=== PATIENT | male | born 1965 | race African-American/Black ===

== ENCOUNTER 2017-11-19 14:20 | Outpatient (CLI) | payer BC | END 2017-11-19 14:21 | disposition home or self-care (01) | LOC: BICRAD 14:20 | PROVIDERS: ATTEND Physician Assistant Medical | DX: R14.0 Abdominal distension (gaseous) (principal); R06.00 Dyspnea, unspecified | CPT/HCPCS: 71046; 74018 ==

== ENCOUNTER 2018-10-14 13:58 | Outpatient (CLI) | payer BC, OTHER ==
--- NOTE | 2018-10-14 15:17 | ULT ---
BILATERAL RENAL ULTRASOUND: History: Chronic renal insufficiency. Technique: Multiple longitudinal and transverse images of the kidneys and bladder obtained using a mu ltihertz curvilinear transducer. Real-time and color flow images obtained. FINDINGS: Both kidneys are of normal contour, axis and size. Right kidney measures 11.4 and left kidney 11.5 cm from pole to pole. No evidence of hydronephrosis seen. No evidence of renal masses seen. The urinary bladder is unremarkable. No evidence of bladder abnormality is seen on sonography. IMPRESSION: Normal renal ultrasound. POS: NICOLE
== END 2018-10-14 13:59 | disposition home or self-care (01) ==
LOC: BICULT 13:58
PROVIDERS: ATTEND Internal Medicine Nephrology
DX: I12.9 Hypertensive chronic kidney disease with stage 1 through stage 4 chronic kidney disease, or unspecified chronic kidney disease (principal); N18.3 Chronic kidney disease, stage 3 (moderate)
CPT/HCPCS: 76770

== ENCOUNTER 2020-02-25 15:47 | Observation (INO) | payer BC, OTHER ==
[2020-02-25] MEDS ORDERED: Acetaminophen 500 MG TAB ONE (16:43)
[2020-02-25] MEDS ORDERED: Dextrose 50% Abboject 50 ML SYRINGE ONE (17:13)
[2020-02-25 17:20] LABS: Hemoglobin 14.2 g/dL (14.0-18.0); Mean Corpuscular HGB CONC 30.9 g/dL (32.0-36.0); Mean Corpuscular Hemoglobin 23.9 pg (27.0-31.0); Mean Corpuscular Volume 77.3 fL (78.0-98.0); Mean Platelet Volume 7.5 fL (7.4-10.4); Platelet Count 166 thou/uL (130-400); RBC Distribution Width 19.9 % (11.5-14.5); Red Blood Cell (RBC) Count 5.93 mill/uL (4.70-6.10)
[2020-02-25 17:34] LABS: Bacteria/HPF None Seen HPF (None Seen); Bilirubin Negative (Negative); Blood, Urine Trace (Negative); Clarity Clear (Clear); Glucose, Urine (Dipstick) 200 mg/dL (Negative); Ketone, Urine Negative (Negative); Leukocyte 25 Leu/uL (Negative); Nitrite Negative (Negative); Protein, Urine (Dipstick) 100 mg/dL (Neg-Trace); RBC/HPF 0-3 HPF (0-3); Specific Gravity, Urine 1.017 (1.002-1.036); Squamous Epithelial 0-3 HPF (0-3); Urobilinogen Normal mg/dL (Less than 2)
[2020-02-25 17:39] LABS: Anisocytosis SLIGHT = 6-15 cells (100X) (0-5/hpf); Band 14 % (5-11); Burr Cells SLIGHT = 2-5 cells (100X) (0-1/hpf); Hypochromia SLIGHT = 6-15 cells (100X) (0-5/hpf); Large Platelets SLIGHT; Lymphocytes 7 % (21-51); MDiff Complete? YES; Microcytosis SLIGHT = 6-15 cells (100X) (0-5/hpf); Monocytes 10 % (0-10); Neutrophil 69 % (42-75); Nucleated RBC 2 % (0); Ovalocytes SLIGHT = 2-5 cells (100X) (0-1/hpf); Platelet Morphology Comment Appears Adequate; Target Cells SLIGHT = 2-5 cells (100X) (0-1/hpf)
[2020-02-25 17:51] LABS: ALT (SGPT) 20 U/L (8-55); AST (SGOT) 59 U/L (5-34); Albumin 3.9 g/dL (3.5-5.0); Alkaline Phosphatase 87 U/L (40-110); Anion Gap 15 mmol/L (10-20); BUN (Urea Nitrogen) 21 mg/dL (8.4-25.7); Calc. Creatinine Clearance 0 mL/min (70-130); Calcium 9.3 mg/dL (7.8-10.44); Carbon Dioxide 25 mmol/L (22-29); Chloride 98 mmol/L (98-107); Estimated GFR-MDRD 37; Globulin 4.2 g/dL (2.4-3.5); Glucose 31 mg/dL (70-105); Potassium 4.1 mmol/L (3.5-5.1); Protein, Total 8.1 g/dL (6.0-8.3); Sodium 134 mmol/L (136-145)
[2020-02-25 18:48] LABS: Amphetamine Not Detected (NotDetected); Barbiturates Screen Not Detected (NotDetected); Benzodiazepine Screen Not Detected (NotDetected); Cocaine Metabolite Screen Not Detected (NotDetected); Medtox Control Line Valid? VALID (VALID); Medtox Reader # READER 4; Methadone Not Detected (NotDetected); Methamphetamine Not Detected (NotDetected); Opiate Screen Not Detected (NotDetected); Oxycodone Screen Not Detected (NotDetected); Phencyclidine (PCP) Not Detected (NotDetected); THC/Cannabinoid Screen Not Detected (NotDetected); Tricyclic Screen Not Detected (NotDetected)
--- NOTE | 2020-02-25 19:21 | RAD ---
RADIOGRAPH CHEST 1 VIEW: Date: 02/25/20 Time: 7:00 p.m. HISTORY: 54-year-old male with fever. COMPARISON: 02/22/19 FINDINGS: Throughout the right upper, mid, and lower lung zones, there has been interval coalescence of previou sly demonstrate faint infiltrates into denser, alveolar infiltrates, especially in the mid lung zone. More subtle, faint infiltrates at left mid/lower lung zone, questionably slightly worsening. Sternotomy wires. Cardiac size upper limits of normal. No pneumothorax. No effacement of the lateral costophrenic angles. IMPRESSION: 1. Interval worsening of right sided infiltrates. 2. Possible interval worsening of mild left sided infiltrates. 3. The findings are consistent with bilateral pneumonia, either bacterial or severe viral pneumo iesha. JN [] POS: JIN
--- NOTE | 2020-02-25 19:51 | CT ---
CT Brain WO Con: 02/25/2020 6:12 PM CLINICAL HISTORY: Altered mental status with low blood sugar. IMAGING TECHNIQUE: Multiple CT images were obtained of the brain without IV contrast. COMPARISON: None. FINDINGS: BRAIN: Evidence of acute infarct: None. Evidence of chronic ischemic change:None. Evidence of intracranial hemorrhage: None. Evidence of midline shift: Third ventricle and septum pellucidum are midline. Ventricles: Normal. No hydrocephalus. SKULL: Intact. VISUALIZED PARANASAL SINUSES: Clear. MASTOID AIR CELLS: Clear. EXTRACRANIAL SOFT TISSUES: Normal. IMPRESSION: No acute intracranial abnormality.
[2020-02-25] MEDS ORDERED: Dextrose 5% in Water 1,000 ML IV PRN (21:03)
--- NOTE | 2020-02-25 21:31 | PDOC.FPRHP ---
- History of Present Illness Chief Complaint: "feeling off" History of Present Illness: 54YO AAM with a PMH notable for DMII, CKDIII, HTN & a h/o AV valve replacement who presented to the ED via EMS after being noted to be altered at home earlier today by his girlfriend. Patient reported that he has had decreased PO intake this week but has still been taking his meds as prescribed. Was actually just in the ED on 02/22 for the same reason as today but was discharged home on that date. Per the patient, he "felt off" at home today and his girlfriend that he was acting different so she called EMS. On EMS's arrival the patient's BG level was noted to be significantly low around 40 so he was given glucose products which brought it up to ~137. However, on arrival to the ED he it was back down into the 30s & the patient was altered so an AMS workup was initiated including labs & a head CT. The patient's head CT was negative and he was given 1amp of D50 & 500mL of D10W and his BG julio césar to the 100s again and he became much more alert and oriented. Of note, the patient was also febrile on presentation at 101.1F so he was given 1g of tylenol & 1L of NS & swabbed for COVID-19 which came back +. On exam the patient reported not feeling well since ~Saturday with fatigue & decreased appetite. No known COVID-19 + contacts. No reported cough, congestion, fever/chills, myalgias, or N/V/D/C. ED Course: 1 amp D50, 1L NS, 1g tylenol, 500mL D10W - Allergies/Adverse Reactions Allergies Allergy/AdvReac Type Severity Reaction Status Date / Time No Known Allergies Allergy Verified 08/18/16 02:26 - Home Medications Medication Instructions Recorded Confirmed Type Warfarin Sodium [Coumadin] 10 mg PO DAILY 11/12/13 08/18/16 History Alogliptin 25 mg PO DAILY 08/18/16 08/18/16 History Aspirin [Ecotrin Low Strength] 81 mg PO DAILY 08/18/16 08/18/16 History Colchicine 0.6 mg PO DAILY 08/18/16 08/18/16 History Doxazosin Mesylate 4 mg PO HS 08/18/16 08/18/16 History Dulaglutide [Trulicity] 0.5 ml SC Q7DAYS 08/18/16 08/18/16 History Furosemide 40 mg PO BID 08/18/16 02/25/20 History Glimepiride [Amaryl] 8 mg PO BID 08/18/16 08/18/16 History Lisinopril 10 mg PO BID 08/18/16 08/18/16 History Metoprolol Succinate 150 mg PO DAILY 08/18/16 02/25/20 History Potassium Chloride [K-Dur] 20 meq PO BID 08/18/16 08/18/16 History Allopurinol 300 mg PO DAILY 02/25/20 02/25/20 History Atorvastatin Calcium 80 mg PO DAILY 02/25/20 02/25/20 History Cholecalciferol (Vitamin D3) [D3 25 mcg PO DAILY 02/25/20 02/25/20 History Dots] Dapagliflozin Propanediol [Farxiga] 10 mg PO QAM 02/25/20 02/25/20 History Ergocalciferol (Vitamin D2) 1.25 mg PO Q7DAYS 02/25/20 02/25/20 History [Ergocal] Ezetimibe 5 mg PO DAILY 02/25/20 02/25/20 History - History PMHx: DMII, CKD III, HTN, gout, HLD, vit d def PSHx: AV valve replacement FHx: non-contributory Social: No TAD. Lives in a house with his GF in [place]. - Review of Systems General: reports: weight/appetite/sleep changes, fatigue. denies: fever/chills Eyes: denies: eye pain, vision changes ENT: reports: other (no sore throat). denies: nasal congestion Respiratory: denies: cough, congestion, shortness of breath Cardiovascular: denies: chest pain, palpitation Gastrointestinal: denies: nausea, vomiting, diarrhea, constipation, abdominal pain Genitourinary: reports: other (no hematuria). denies: dysuria Skin: denies: rashes, lesions Musculoskeletal: reports: arthritis/arthralgias. denies: pain Neurological: reports: other (no headache). denies: syncope Psychological: denies: anxiety, depression - Vital signs BP: 110/61 HR: 78 RR: 18 Tmax: 101.1F Pox: 98-100% on RA Wt: 113.4 kg - Physical Exam Constitutional: NAD, awake, alert and oriented, well developed HEENT: normocephalic and atraumatic, grossly normal vision, grossly normal hearing, MMM, oropharynx clear Neck: supple, FROM Heart: RRR, normal S1/S2, no murmurs/rubs/gallops, pulses present, no edema Lungs: CTAB, no respiratory distress, no rales/rhonchi, no wheezing, no retractions, other (decreased breath sounds throughout) Abdomen: soft, non-tender, bowel sounds present Musculoskeletal: normal structure, normal tone, ROM grossly normal Neurological: no focal deficit, CN II-XII intact Skin: no rash/lesions, good turgor Heme/Lymphatic: no unusual bruising or bleeding Psychiatric: normal mood and affect, good judgment and insight, intact recent and remote memory FMR H&P: Results - Labs Result Diagrams: 02/25/20 16:59 02/25/20 16:59 Lab results: WBC 10.0 thou/uL (4.8-10.8) 02/25/20 16:59 Hgb 14.2 g/dL (14.0-18.0) 02/25/20 16:59 Hct 45.9 % (42.0-52.0) 02/25/20 16:59 MCV 77.3 fL (78.0-98.0) L 02/25/20 16:59 Plt Count 166 thou/uL (130-400) 02/25/20 16:59 Band Neuts % (Manual) 14 % (5-11) H 02/25/20 16:59 Sodium 134 mmol/L (136-145) L 02/25/20 16:59 Potassium 4.1 mmol/L (3.5-5.1) 02/25/20 16:59 Chloride 98 mmol/L (98-107) 02/25/20 16:59 Carbon Dioxide 25 mmol/L (22-29) 02/25/20 16:59 BUN 21 mg/dL (8.4-25.7) 02/25/20 16:59 Creatinine 2.23 mg/dL (0.7-1.3) H 02/25/20 16:59 Glucose 31 mg/dL (70-105) L* 02/25/20 16:59 Lactic Acid 1.1 mmol/L (0.5-2.2) 02/25/20 18:52 Calcium 9.3 mg/dL (7.8-10.44) 02/25/20 16:59 Total Bilirubin 1.0 mg/dL (0.2-1.2) 02/25/20 16:59 AST 59 U/L (5-34) H 02/25/20 16:59 ALT 20 U/L (8-55) 02/25/20 16:59 Alkaline Phosphatase 87 U/L (40-110) 02/25/20 16:59 Serum Total Protein 8.1 g/dL (6.0-8.3) 02/25/20 16:59 Albumin 3.9 g/dL (3.5-5.0) 02/25/20 16:59 Urine Ketones Negative mg/dL (Negative) 02/25/20 16:40 Urine Blood Trace (Negative) A 02/25/20 16:40 Urine Nitrite Negative (Negative) 02/25/20 16:40 Ur Leukocyte Esterase 25 Keith/uL (Negative) A 02/25/20 16:40 Urine RBC 0-3 HPF (0-3) 02/25/20 16:40 Urine WBC 7-10 HPF (0-3) A 02/25/20 16:40 Ur Squamous Epith Cells 0-3 HPF (0-3) 02/25/20 16:40 Urine Bacteria None Seen HPF (None Seen) 02/25/20 16:40 - EKG Interpretation EKst degree AV block w/ rate of 79 bpm, RBBB, QTc 486ms (unchanged from EKG from 02/23/20 visit) - Radiology Interpretation Chest x-ray Status: image reviewed by me, report reviewed by me (B/L PNA) CT scan - head Status: report reviewed by me (NAF) FMR H&P: A/P - Problem List (1) Hypoglycemia associated with diabetes Current Visit: Yes Status: Acute Priority: High Code(s): E11.649 - TYPE 2 DIABETES MELLITUS WITH HYPOGLYCEMIA WITHOUT COMA (2) Pneumonia due to COVID-19 virus Current Visit: Yes Status: Acute Code(s): U07.1 - COVID-19; J12.89 - OTHER VIRAL PNEUMONIA (3) Gout Current Visit: Yes Status: Chronic Code(s): M10.9 - GOUT, UNSPECIFIED (4) HLD (hyperlipidemia) Current Visit: Yes Status: Chronic Code(s): E78.5 - HYPERLIPIDEMIA, UNSPECIFIED (5) Vitamin D deficiency Current Visit: Yes Status: Chronic Code(s): E55.9 - VITAMIN D DEFICIENCY, UNSPECIFIED (6) Osteoarthritis Current Visit: Yes Status: Chronic Code(s): M19.90 - UNSPECIFIED OSTEOARTHRITIS, UNSPECIFIED SITE (7) DM2 (diabetes mellitus, type 2) Current Visit: No Status: Chronic Qualifiers: Diabetes mellitus residential insulin use: without intermediate accountant use Diabetes mellitus complication status: with kidney complications Diabetes mellitus complication detail: with chronic kidney disease Chronic kidney disease stage : stage 3 (moderate) Qualified Code(s): E11.22 - Type 2 diabetes mellitus with diabetic chronic kidney disease; N18.3 - Chronic kidney disease, stage 3 ( moderate) (8) HTN (hypertension) Current Visit: No Status: Chronic Code(s): I10 - ESSENTIAL (PRIMARY) HYPERTENSION Qualifiers: Hypertension type: essential hypertension Qualified Code(s): I10 - Essential (primary) hypertension (9) Prosthetic replacement of heart valve Current Visit: No Status: Chronic Code(s): Z95.2 - PRESENCE OF PROSTHETIC HEART VALVE Comment: AVR - Plan 54YO AAM with a PMH notable for DMII, CKDIII, HTN & a h/o AV valve replacement who presented to the ED via EMS after being noted to be altered & hypoglycemic at home earlier today by his girlfriend and EMS. #Hypoglycemia 2/2 poor PO intake while taking antihyperglycemic medications: - s/p D50 & 500mL of D5W in the ED with last 2 accuchecks WNLs (130 & 74). Patient hungry @ time of exam so will allow CC, HH, Low Na diet & will get Q4Hr accuchecks but will increase frequency if hypoglycemia returns. - hypoglycemia protocol. #COVID-19 PNA: - Confirmed on CXR on presentation in setting of + rapid COVID screen. Maintaining adequate sats on RA. WBC WNLs. Will add routine COVID-19 labs including d dimer, LDH, CRP, ferritin, BNP, trop I, & fibrinogen. Will also add a procal & if elevated will likely add abx. - Continue close monitoring of resp status & routine isolation precautions. PRN tylenol for fever/pain. - Heparin BID for VTE PPX in setting of LAURA. #LAURA on CKDIII - eGFR on low end of baseline range 37 and Cr slightly elevated at 2.23. s/p 1L in the ED. Will continue LR @ 110mL/hr. #DMII - Checking an A1c. Will hold home meds. hypoglycemia protocol. No SSI for now. #HTN - Continue home meds. #Gout - Home meds. #HLD - home meds #Vit D def - Home meds. #h/o AV valve replacement: - Aware. Dispo: Will admit to telemetry for close observation overnight. Anticipated LOS <2 midnights pending clinical course. IVFs: LR @ 110mL/hr Abx: None VTE PPX: Lovenox GI PPX: None CODE STATUS: FULL CODE PCP: Kamilla GANDHI H&P: Upper Level - Plan Date/Time: 02/25/202128 I, [], have evaluated this patient and agree with findings/plan as outlined by agronomy internship resident. Pertinent changes/additions are listed here.
[2020-02-25] MEDS ORDERED: Lactated Ringer's 1,000 ML IV SCH (21:45)
[2020-02-25 22:13] LABS: Hemoglobin A1c 6.4 % (4.0-6.0)
[2020-02-25 22:54] VITALS: BMI 36.8
[2020-02-26] MEDS: Acetaminophen 500 MG TAB PO PRN ×3 (02:41→20:58)
[2020-02-26] MEDS: Dextrose 50% Abboject 50 ML SYRINGE SLOW IVP PRN ×2 (03:36→04:20)
[2020-02-26 05:12] LABS: ALT (SGPT) 14 U/L (8-55); AST (SGOT) 32 U/L (5-34); Albumin 3.3 g/dL (3.5-5.0); Alkaline Phosphatase 74 U/L (40-110); Anion Gap 12 mmol/L (10-20); BUN (Urea Nitrogen) 22 mg/dL (8.4-25.7); Bilirubin, Total 0.7 mg/dL (0.2-1.2); CRP (Inflammatory) 8.46 mg/dL (= or < 0.5); Calc. Creatinine Clearance 63 mL/min (70-130); Calcium 8.3 mg/dL (7.8-10.44); Carbon Dioxide 24 mmol/L (22-29); Chloride 100 mmol/L (98-107); Estimated GFR-MDRD 39; Globulin 3.2 g/dL (2.4-3.5); Glucose 127 mg/dL (70-105); Protein, Total 6.5 g/dL (6.0-8.3); Sodium 133 mmol/L (136-145)
[2020-02-26] MEDS: Aspirin 81 mg Enteric Coated Tablet PO SCH (08:01)
[2020-02-26] MEDS: Ezetimibe 10 MG TAB PO SCH (08:01)
[2020-02-26] MEDS: Allopurinol 300 MG TAB PO SCH (08:01)
--- NOTE | 2020-02-26 08:21 | PDOC.FM ---
- Subjective Subjective: Patient sitting up at bedside this morning, states he feels okay. He says he has decreased appetite and some nausea, no vomiting. Has had these symptoms for about 1 week. Encouraged patient to attempt PO intake today. - Objective MAR Reviewed: Yes Vital Signs & Weight: Vital Signs (12 hours) Temp Pulse Resp BP BP Pulse Ox 02/26/20 03:15 99.9 F H 97 18 151/89 H 95 02/26/20 02:37 100 02/25/20 23:00 98.5 F 79 18 105/69 100 Weight Weight 112.945 kg I&O: 02/25/20 02/26/20 02/27/20 06:59 06:59 06:59 Intake Total 1100 Output Total 450 Balance 650 Result Diagrams: 02/25/20 16:59 02/26/20 04:25 Phys Exam - Physical Examination Constitutional: NAD HEENT: moist MMs Neck: no JVD, supple Respiratory: no wheezing, clear to auscultation bilateral Cardiovascular: RRR, no significant murmur Gastrointestinal: soft, positive bowel sounds Musculoskeletal: no edema, pulses present Neurological: normal sensation, moves all 4 limbs Psychiatric: normal affect, A&O x 3 Skin: no rash, normal turgor Dx/Plan (1) Hypoglycemia associated with diabetes Code(s): E11.649 - TYPE 2 DIABETES MELLITUS WITH HYPOGLYCEMIA WITHOUT COMA Status: Acute (2) Pneumonia due to COVID-19 virus Code(s): U07.1 - COVID-19; J12.89 - OTHER VIRAL PNEUMONIA Status: Acute (3) HTN (hypertension) Code(s): I10 - ESSENTIAL (PRIMARY) HYPERTENSION Status: Chronic Qualifiers: Hypertension type: essential hypertension Qualified Code(s): I10 - Essential (primary) hypertension - Plan Plan: 54YO AAM with a PMH notable for DMII, CKDIII, HTN & a h/o AV valve replacement who presented to the ED via EMS after being noted to be altered & hypoglycemic at home earlier today by his girlfriend and EMS. #Hypoglycemia 2/2 poor PO intake while taking antihyperglycemic medications: - s/p D50 & 500mL of D5W in the ED. - encourage PO intake - Q4Hr accuchecks - hypoglycemia protocol - last 2 accuchecks: 35, 118 #COVID-19 PNA: - Confirmed on CXR on presentation in setting of + rapid COVID screen - Maintaining adequate sats on RA - WBC WNLs - D dimer: 0.48 > 0.39 - CRP 9.87 > 8.46 - Procal 0.33 > 0.28 - troponin 0.024, Ferritin 111 - Continue close monitoring of resp status & routine isolation precautions - PRN tylenol for fever/pain. - Heparin BID for VTE PPX in setting of LAURA. #LAURA on CKDIII - eGFR on low end of baseline range 37 and Cr slightly elevated at 2.23. s/p 1L in the ED - received and additional 1L of LR @ 110mL/hr. Now encouraging PO intake #DMII - A1C 6.4% - Will hold home meds. hypoglycemia protocol. - No SSI for now. #HTN - Continue home meds. #Gout - Home meds. #HLD - home meds #Vit D def - Home meds. #h/o AV valve replacement: - Aware. Diet: HH, Low Na VTE PPX: Lovenox GI PPX: None CODE STATUS: FULL CODE PCP: Kamilla Dispo: Stable, admitted to obs on COVID telemetry unit. Continue to monitor glucose checks today and encourage PO intake. Anticipated discharge in <48 hrs. Addendum - Attending - Attending Attestation Date/Time: 02/26/20 0920 I personally evaluated the patient and discussed the management with Dr. Tay. I agree with the History, Examination, Assessment and Plan documented above with any addition or exceptions noted below. Patient feeling improved. Maintaining normoglycemia currently and tolerating diet. S/p IVF for LAURA likely 2/2 poor PO intake. Monitor blood sugars through the day, recommend stopping Glymeperide for now. In regards to COVID, patient overall denies any symptoms other than cough. Normal sats on room air. 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
[2020-02-26] MEDS ORDERED: Furosemide 40 MG TAB PO SCH (09:00)
[2020-02-26] MEDS ORDERED: Heparin 5,000 UNITS/ML VIAL SC SCH (09:00)
[2020-02-26 12:12] LABS: INR-International Normal Ratio 1.3; PTT 35.7 sec (22.9-36.1); Prothrombin Time 16.3 sec (12.0-14.7)
[2020-02-26] MEDS ORDERED: Warfarin Sodium 10 MG TAB PO SCH (17:30)
[2020-02-26] MEDS ORDERED: Atorvastatin Calcium 40 MG TAB PO SCH (21:00)
[2020-02-27 05:39] LABS: INR-International Normal Ratio 1.4; Prothrombin Time 16.7 sec (12.0-14.7)
--- NOTE | 2020-02-27 06:23 | PDOC.FM ---
- Subjective Subjective: pt sleeping comfortably in bed, denies sob/cp/cough. - Objective Vital Signs & Weight: Vital Signs (12 hours) Temp Pulse Resp BP Pulse Ox 02/26/20 20:33 101.1 F H 95 20 132/86 95 Weight Weight 112.899 kg I&O: 02/25/20 02/26/20 02/27/20 06:59 06:59 06:59 Intake Total 1100 300 Output Total 450 Balance 650 300 Result Diagrams: 02/25/20 16:59 02/26/20 04:25 Phys Exam - Physical Examination Constitutional: NAD HEENT: moist MMs Neck: full ROM no accessory muscle use, even chest rise and fall Gastrointestinal: no distention Musculoskeletal: no edema Neurological: moves all 4 limbs Psychiatric: normal affect Skin: no rash Dx/Plan (1) Hypoglycemia associated with diabetes Code(s): E11.649 - TYPE 2 DIABETES MELLITUS WITH HYPOGLYCEMIA WITHOUT COMA Status: Acute (2) Pneumonia due to COVID-19 virus Code(s): U07.1 - COVID-19; J12.89 - OTHER VIRAL PNEUMONIA Status: Acute (3) HLD (hyperlipidemia) Code(s): E78.5 - HYPERLIPIDEMIA, UNSPECIFIED Status: Chronic (4) Osteoarthritis Code(s): M19.90 - UNSPECIFIED OSTEOARTHRITIS, UNSPECIFIED SITE Status: Chronic (5) HTN (hypertension) Code(s): I10 - ESSENTIAL (PRIMARY) HYPERTENSION Status: Chronic Qualifiers: Hypertension type: essential hypertension Qualified Code(s): I10 - Essential (primary) hypertension (6) Prosthetic replacement of heart valve Code(s): Z95.2 - PRESENCE OF PROSTHETIC HEART VALVE Status: Chronic - Plan Plan: Hypoglycemia 2/2 poor PO intake while taking antihyperglycemic medications: - adequate PO intake, resolved COVID-19 PNA: - + rapid COVID screen, cxr/lab findings c/w - Maintaining adequate sats on RA - routine isolation precautions - PRN tylenol for fever/pain. - Heparin BID for VTE PPX in setting of LAURA. LAURA on CKDIII - resolved DMII - A1C 6.4% - hold glimiperide until fu with pcp HTN - Continue home meds. Gout - Home meds. HLD - home meds Vit D def - Home meds. h/o AV valve replacement: - Aware. - INR sub therapeutic, fu with coumadin clinic outpt. VTE PPX: Lovenox CODE STATUS: FULL CODE PCP: Kamilla Dispo: tolerating PO well, no O2 requirement. stable for DC. Addendum - Attending - Attending Attestation Date/Time: 02/27/20 9143 I personally evaluated the patient and discussed the management with Dr. Whitehead. I agree with the History, Examination, Assessment and Plan documented above with any addition or exceptions noted below. Patient blood sugars stable. Stable for discharge off ELLIS medications. In regards to COVID, he has never required O2 and reports no respiratory symptoms. Counselled on return precautions. Stable for discharge.
[2020-02-27] MEDS: Ezetimibe 10 MG TAB PO SCH (07:46)
[2020-02-27] MEDS: Allopurinol 300 MG TAB PO SCH (07:46)
[2020-02-27] MEDS: Aspirin 81 mg Enteric Coated Tablet PO SCH (07:46)
[2020-02-27 09:51] VITALS: BP 126/86; TEMP 99.4
[2020-02-27] MEDS ORDERED: Warfarin Sodium 10 MG TAB PO SCH (17:00)
--- NOTE | 2020-02-29 09:00 | DIS ---
DATE OF ADMISSION: 02/25/2020 DATE OF DISCHARGE: 02/27/2020 ADMITTING ATTENDING: Danis Kate MD DISCHARGE ATTENDING: Damián Collins MD CONSULTS: None. IMAGING: Brain CT without acute abnormality, chest x-ray with bilateral interstitial findings consistent with COVID pneumonia. DISCHARGE MEDICATIONS: 1. Warfarin 10 mg p.o. daily. 2. Metoprolol 150 mg p.o. daily. 3. Potassium 20 mEq p.o. b.i.d. 4. Doxazosin 4 mg p.o. at bedtime. 5. Aspirin 81 mg daily. 6. Lasix 40 mg p.o. b.i.d. 7. Lisinopril 10 mg p.o. b.i.d. 8. Colchicine 0.6 mg p.o. daily. 9. Trulicity 0.5 mL subcu q.7 days. 10. Allopurinol 300 mg p.o. daily. 11. Vitamin D2 of 1.25 mg p.o. q.7 days. 12. Forxiga 10 mg p.o. q.a.m. 13. Ezetimibe 5 mg p.o. daily. 14. Cholecalciferol 25 mcg p.o. daily. 15. Atorvastatin 80 mg p.o. daily. 16. Zofran 4 mg p.o. q.4 hours p.r.n. DISCONTINUED MEDICATIONS: 1. Glimepiride 8 mg p.o. b.i.d. 2. Alogliptin 25 mg p.o. daily. DISCHARGE DIAGNOSES: 1. Hypoglycemia secondary to poor p.o. intake. 2. COVID-19 pneumonia. SECONDARY DIAGNOSES: 1. Acute kidney injury on chronic kidney disease 3. 2. Diabetes mellitus type 2. 3. Hypertension. 4. Gout. 5. Hyperlipidemia. 6. History of atrioventricular valve replacement. HISTORY OF PRESENT ILLNESS/HOSPITAL COURSE: This is a 54-year-old male presenting with a chief complaint of being altered by his girlfriend. She reports that he has had decreased p.o. intake for the past couple days and was just not acting correctly today. Blood glucose was decreased when EMS arrived, he was given D50, improved to 137. The patient brought to the ER for further evaluation. In the emergency room, he had a fever of 101, had a positive COVID swab. He was given another amp of D50 and 500 mL of D10W. The patient admitted to the COVID floor for COVID positive pneumonia and low blood sugar, likely related to his decreased p.o. intake and continuation of his oral diabetes medications. On the medical floor, the patient did well on room air. Had fever that was controlled with Tylenol and blood sugars quickly julio césar to adequate range. He did not require further intervention or monitoring. His diabetic meds were held. His diet improved and he is tolerating p.o. well. Stable for discharge on day three of hospitalization. DISCHARGE INSTRUCTIONS: 1. Location: Home. 2. Diet: Diabetic. 3. Activity: As tolerated. 4. Follow up with PCP in the next 3 to 7 days. Job ID: [id number] TERELL
[2020-03-03] MEDS ORDERED: Ergocalciferol 1.25 MG(50,000 UNITS) CAP PO SCH (09:00)
== END 2020-02-27 10:51 | disposition home or self-care (01) ==
LOC: ERS 15:47 → 2SW 18:32
PROVIDERS: ADMIT Family Medicine; ATTEND Family Medicine
DX: U07.1 COVID-19 (principal); J12.89 Other viral pneumonia; I12.9 Hypertensive chronic kidney disease with stage 1 through stage 4 chronic kidney disease, or unspecified chronic kidney disease; E11.22 Type 2 diabetes mellitus with diabetic chronic kidney disease; E11.649 Type 2 diabetes mellitus with hypoglycemia without coma; N18.3 Chronic kidney disease, stage 3 (moderate); N17.9 Acute kidney failure, unspecified; E78.5 Hyperlipidemia, unspecified; M10.9 Gout, unspecified; I44.0 Atrioventricular block, first degree; E55.9 Vitamin D deficiency, unspecified; M19.90 Unspecified osteoarthritis, unspecified site; Z95.2 Presence of prosthetic heart valve; Z79.01 Long term (current) use of anticoagulants; Z79.82 Long term (current) use of aspirin; Z79.84 Long term (current) use of oral hypoglycemic drugs; Z79.899 Other long term (current) drug therapy
CPT/HCPCS: 36415; 36416; 70450; 71045; 80053; 80306; 81003; 81015; 82728; 83036; 83605; 83615; 83880; 84145; 84484; 85025; 85379; 85384; 85610; 85730; 86140; 87040; 87086; 93005; 94760; 96361; 96365; 96366; 96372; 96375; 96376; G0378; J1644; U0002

== ENCOUNTER 2020-03-04 12:57 | Inpatient (IN) | payer BC, OTHER ==
[~2020-03-04 12:57] MED LIST: Succinylcholine Chloride 20 MG/ML 10 ml SYRINGE FS ONE
--- NOTE | 2020-03-04 13:41 | RAD ---
Portable chest: HISTORY: Dyspnea COMPARISON: 02/25/2020 FINDINGS:Hazy bilateral infiltrates persist. There is evidence of some improvement in the right mid l syed infiltrates when compared to prior exam. Heart and mediastinum appear stable IMPRESSION:Hazy bilateral infiltrates again noted. Evidence of improvement in the right lung infiltra gretchen from prior study.
[2020-03-04] MEDS ORDERED: Azithromycin 500 MG VIAL ONE (13:55)
[2020-03-04] MEDS ORDERED: Dexamethasone 10 MG/ML VIAL ONE (13:56)
[2020-03-04 13:58] LABS: Band 9 % (5-11); Hemoglobin 14.3 g/dL (14.0-18.0); Hypochromia SLIGHT = 6-15 cells (100X) (0-5/hpf); Large Platelets SLIGHT; Lymphocytes 4 % (21-51); MDiff Complete? YES; Mean Corpuscular HGB CONC 30.4 g/dL (32.0-36.0); Mean Corpuscular Hemoglobin 22.7 pg (27.0-31.0); Mean Corpuscular Volume 74.8 fL (78.0-98.0); Mean Platelet Volume 12.5 fL (7.4-10.4); Microcytosis SLIGHT = 6-15 cells (100X) (0-5/hpf); Monocytes 6 % (0-10); Neutrophil 80 % (42-75); Nucleated RBC 1 % (0); Ovalocytes SLIGHT = 2-5 cells (100X) (0-1/hpf); Platelet Count 478 thou/uL (130-400); Platelet Morphology Comment Appears Increased; Polychromasia MODERATE = 3-4 cells (100X) (0-2/hpf); Reactive Lymphocytes 1 % (0-10); Red Blood Cell (RBC) Count 6.29 mill/uL (4.70-6.10); Schistocytes SLIGHT = 2-5 cells (100X) (0-1/hpf); Target Cells MODERATE= 6-15 cells (100X) (0-1/hpf); Tear Drops SLIGHT = 2-5 cells (100X) (0-1/hpf); White Blood Cell (WBC) Count 21.6 thou/uL (4.8-10.8)
[2020-03-04 14:30] LABS: ALT (SGPT) 18 U/L (8-55); AST (SGOT) 29 U/L (5-34); Albumin 3.4 g/dL (3.5-5.0); Alkaline Phosphatase 89 U/L (40-110); Anion Gap 22 mmol/L (10-20); BUN (Urea Nitrogen) 68 mg/dL (8.4-25.7); Bilirubin, Total 0.5 mg/dL (0.2-1.2); Calc. Creatinine Clearance 0 mL/min (70-130); Calcium 9.8 mg/dL (7.8-10.44); Carbon Dioxide 17 mmol/L (22-29); Chloride 108 mmol/L (98-107); Estimated GFR-MDRD 22; Globulin 4.7 g/dL (2.4-3.5); Glucose 212 mg/dL (70-105); Potassium 4.1 mmol/L (3.5-5.1); Protein, Total 8.1 g/dL (6.0-8.3); Sodium 143 mmol/L (136-145)
--- NOTE | 2020-03-04 14:50 | PDOC.FPRHP ---
- History of Present Illness Chief Complaint: SOB History of Present Illness: 54 y/o with PMHx DM, presents for SOB in the setting of known COVID+ pneumonia. He was admitted on 02/26 for hypoglycemia, and found to be COVID+. He had symptoms for approximately 2 days at that point. At presentation today, he is near day 10 of illness. He feels like his breathing has gotten worse since he was discharged on 02/28, especially when he is lying down. States he had cough at the beginning of his illness, but is not bothered by cough at this time. Reports chest congestion. No chest pain, dizziness, lightheadedness, nausea, vomiting, diarrhea. +Subjective fevers. In addition, he reports exercise intolerance and will get short of breath with minimal effort. ED Course: Azithromycin 500mg Dexamethasone 10mg - Allergies/Adverse Reactions Allergies Allergy/AdvReac Type Severity Reaction Status Date / Time No Known Allergies Allergy Verified 08/18/16 02:26 - Home Medications Medication Instructions Recorded Confirmed Type Warfarin Sodium [Coumadin] 10 mg PO DAILY 11/12/13 03/04/20 History Aspirin [Ecotrin Low Strength] 81 mg PO DAILY 08/18/16 08/18/16 History Colchicine 0.6 mg PO DAILY 08/18/16 03/04/20 History Doxazosin Mesylate 4 mg PO HS 08/18/16 08/18/16 History Dulaglutide [Trulicity] 0.5 ml SC Q7DAYS 08/18/16 08/18/16 History Furosemide 40 mg PO BID 08/18/16 03/04/20 History Lisinopril 10 mg PO BID 08/18/16 03/04/20 History Metoprolol Succinate 150 mg PO DAILY 08/18/16 03/04/20 History Potassium Chloride [K-Dur] 20 meq PO BID 08/18/16 08/18/16 History Allopurinol 300 mg PO DAILY 02/25/20 03/04/20 History Atorvastatin Calcium 80 mg PO DAILY 02/25/20 03/04/20 History Cholecalciferol (Vitamin D3) [D3 25 mcg PO DAILY 02/25/20 03/04/20 History Dots] Dapagliflozin Propanediol [Farxiga] 10 mg PO QAM 02/25/20 03/04/20 History Ergocalciferol (Vitamin D2) 1.25 mg PO Q7DAYS 02/25/20 03/04/20 History [Ergocal] Ezetimibe 5 mg PO DAILY 02/25/20 03/04/20 History Ondansetron [Zofran ODT] 4 mg PO Q4HR PRN #30 tab 02/27/20 03/04/20 Rx - History PMHx:DM2, CKD3, HTN, Gout, HLD, vit D def PSHx: AV valve replacement FHx: non-contributory Social: Denies TAD - Review of Systems General: reports: fever/chills, fatigue. denies: weight/appetite/sleep changes , night sweats Eyes: denies: eye pain, vision changes ENT: denies: nasal congestion, rhinorrhea Respiratory: reports: cough, shortness of breath, exercise intolerance. denies : congestion Cardiovascular: reports: orthopnea. denies: chest pain, palpitation, edema, paroxysmal nocturnal dyspnea Gastrointestinal: denies: nausea, vomiting, diarrhea, constipation, abdominal pain, GI bleeding Genitourinary: denies: incontinence, dysuria Skin: denies: rashes, lesions Musculoskeletal: denies: pain, tenderness, stiffness Neurological: denies: numbness, syncope, seizure Psychological: denies: anxiety, depression - Vital signs BP: 123/65 HR: 84 RR: 38 Tmax: 98.7 Pox: 98% on 2L Wt: 100kg - Physical Exam Constitutional: awake, alert and oriented, well developed, other (Pt is in mild distress) HEENT: normocephalic and atraumatic, PERRLA, EOMI, grossly normal vision, grossly normal hearing, MMM Neck: no LAD, no JVD Heart: RRR, normal S1/S2, other (2/6 systolic murmur) Lungs: other (tachypnea, diffuse crackles, fair air movement) Abdomen: soft, non-tender, bowel sounds present, no masses/distention Musculoskeletal: normal tone, ROM grossly normal Neurological: CN II-XII intact, normal sensation Skin: capillary refill <2 seconds, other (diffuse diaphoresis) Heme/Lymphatic: no unusual bruising or bleeding, no purpura Psychiatric: normal mood and affect, good judgment and insight FMR H&P: Results - Labs Result Diagrams: 03/04/20 13:17 03/04/20 13:17 Lab results: WBC 21.6 thou/uL (4.8-10.8) H 03/04/20 13:17 Hgb 14.3 g/dL (14.0-18.0) 03/04/20 13:17 Hct 47.0 % (42.0-52.0) 03/04/20 13:17 MCV 74.8 fL (78.0-98.0) L 03/04/20 13:17 Plt Count 478 thou/uL (130-400) H 03/04/20 13:17 Band Neuts % (Manual) 9 % (5-11) 03/04/20 13:17 Sodium 143 mmol/L (136-145) 03/04/20 13:17 Potassium 4.1 mmol/L (3.5-5.1) 03/04/20 13:17 Chloride 108 mmol/L (98-107) H 03/04/20 13:17 Carbon Dioxide 17 mmol/L (22-29) L 03/04/20 13:17 BUN 68 mg/dL (8.4-25.7) H 03/04/20 13:17 Creatinine 3.58 mg/dL (0.7-1.3) H 03/04/20 13:17 Glucose 212 mg/dL (70-105) H 03/04/20 13:17 Lactic Acid 3.4 mmol/L (0.5-2.2) H 03/04/20 13:17 Calcium 9.8 mg/dL (7.8-10.44) 03/04/20 13:17 Total Bilirubin 0.5 mg/dL (0.2-1.2) 03/04/20 13:17 AST 29 U/L (5-34) 03/04/20 13:17 ALT 18 U/L (8-55) 03/04/20 13:17 Alkaline Phosphatase 89 U/L (40-110) 03/04/20 13:17 B-Natriuretic Peptide 66.3 pg/mL (0-100) 03/04/20 13:17 Serum Total Protein 8.1 g/dL (6.0-8.3) 03/04/20 13:17 Albumin 3.4 g/dL (3.5-5.0) L 03/04/20 13:17 - Radiology Interpretation Chest x-ray Status: image reviewed by me, report reviewed by me (Bilateral opacities) FMR H&P: A/P - Plan Sepsis 2/2 COVID-19 Pnemonia likely vs bacterial pneumonia -leukocytosis with WBC >20, tachypnea, elevated lactate -tested positive on 02/24, symptoms since approx 02/23 -supplemental O2 as needed -will check labs: ferritin, D-dimer, procalcitonin, LDH -will start cefepime for coverage of pseudomonas pneumonia given leukocytosis, procal 0.69 -Warfarin for anticoagulation -Ordering plasma, outside the window for remdesivir, does not meet criteria for IL-6 inhibitor -Continue steroids Acute kidney injury with CKD 3 -Cr near 2 upon discharge, now 3.58 -will hold nephrotoxic medications including lisinopril -will decrease lasix to once daily from BID for gentler diuresis T2DM -recent admission for hypoglycemia -will hold home medications and cover with lantus/SSI while inpatient Hypertension -continue home metoprolol -will hold lisinopril Gout -no acute flare -continue colchicine, allopurinol Hyperlipidemia -continue home atorvastatin Hx of AV valve replacement -currently on warfarin, will continue -check PT, PTT, INR Code: Full Prophylaxis: Warfarin Family: None at bedside Fluids: SL Diet: CC Disposition: DC in 3-4 days PCP: Dr. Kohli Addendum - Attending - Attending Attestation Date/Time: 03/04/20 [id number] I personally evaluated the patient and discussed the management with Dr. Gallo/ Sheila. I agree with the History, Examination, Assessment and Plan documented above with any addition or exceptions noted below. See my event note for details.
[2020-03-04] MEDS ORDERED: Ondansetron ODT 4 MG TAB PO PRN (15:23)
[2020-03-04] MEDS ORDERED: Ondansetron PF 4 MG/2 ML Vial IVP PRN (15:23)
[2020-03-04] MEDS ORDERED: Acetaminophen 325 MG TAB PO PRN (15:23)
[2020-03-04 16:24] LABS: Lactic Acid 2.7 mmol/L (0.5-2.2)
[2020-03-04 16:48] LABS: Prothrombin Time 49.4 sec (12.0-14.7)
[2020-03-04 16:57] LABS: INR-International Normal Ratio 5.5
[2020-03-04] MEDS ORDERED: Warfarin Sodium 10 MG TAB PO SCH (17:00)
[2020-03-04 17:16] LABS: Actual Bicarbonate (HCO3a) 18.5 mEq/L (22-28); Base Excess (BEa) -6.9 mEq/L (-2.0 to +3.0); CO2 Tension 36.9 mmHg (35.0-45.0); Carboxyhemoglobin (COHb) 1.1 gm% (0.0-3.0); Hemoglobin (Hb) 15.1 g/dL (14.0-18.0); Potassium - ABG Lab 4.18 mmol/L (3.70-5.30); pH, Arterial 7.32 (7.35-7.45)
[2020-03-04 17:21] LABS: ALV-art Gradient 101.615 (0-20); O2 Tension (PaO2), arterial 51.9 mmHg (80.0-100.0); Puncture Site RBRACH
--- NOTE | 2020-03-04 17:29 | PDOC.EVN ---
Event Note - Event Note Event Note: Seen and evaluated. Case discussed with Dr. Gallo/Sheila. Presented with AMS and worsening resp symptoms. Hypoxic on RA. Lungs course throughout. Known COVID positive. Labs show LAURA on CKD3B. CXR concerning for multifocal PNA from COVID with possible superimposed bacterial PNA. Meets sepsis criteria. Start cefepime. check procal. Start decadron. Consult ID to evaluate for remdesivir. Baseline ABG ordered. Continue anticoagulation with warfarin. Inpatient, medical >2 midnights. Consider tx to IMCU if worsening mentation or resp status.
[2020-03-04] MEDS: Cefepime 2 GM in Sodium Chloride 0.9% 100 ML IVPB SCH (18:03)
[2020-03-04] MEDS ORDERED: Doxazosin Mesylate 4 MG TAB PO SCH (21:00)
[2020-03-04] MEDS: Atorvastatin Calcium 40 MG TAB PO SCH (21:20)
[2020-03-04] MEDS ORDERED: Albuterol 200 PUFF (6.7GM INHALER) INH PRN (22:26)
[2020-03-04] MEDS ORDERED: Albuterol 200 PUFF (6.7GM INHALER) INH SCH (22:30)
[2020-03-04] MEDS ORDERED: Rocuronium Bromide 10 MG/ML (10ML VIAL) IVP SCH (23:15)
[2020-03-04] MEDS ORDERED: Rocuronium Bromide 10 MG/ML (10ML VIAL) IVP PRN (23:27)
[2020-03-04] MEDS ORDERED: Lactated Ringer's 1,000 ML IV SCH ×2 (23:30→23:45)
--- NOTE | 2020-03-05 00:12 | PDOC.BPN ---
- Brief Progress Note At 2144, the floor nurse called stating the patient's RR was now 28, satting 88 % on HFNC (35L 48%) and that the patient had become diaphoretic and shakey. She also noted increased retractions and work of breathing. At this time an ABG was ordered which showed a pH of 7.32, O2 66, CO2 38.6, and bicarb 19.4. Patient was evaluated by myself on the floor. The patient's HFNC was increased and patient turned on his side. About 30 min- 1 hr later the nurse called again stating that the patient continued to have elevated respirations and worsening of his symptoms. Patient also with worsening confusion and lethargy. BP was found to be 86/60 as well. The patient was then moved to the [facility] (ICU for overflow). The patient was again evaluated and was found to be satting 98% on nonrebreather. Respiratory therapist in the room to try patient on HFNC again. Patient appeared more alert and was answering questions appropriately. Patients BP remained stable with SBP in the 80s. Patient to be placed back on HFNC. CXR ordered, pending. Order placed for 1L LR bolus and to be continued on gentle fluids. Patient received lasix earlier today and has not gotten any fluids, lactate elevated as well. If patient's MAP <65 will need a central line placed. Patient now on day 9-10 of symptoms and definitely has the potential to fail HFNC and require intubation. Will monitor closely. Convalescent plasma has been ordered, pending. Called Dr. Kohli to inform him of patient getting moved to the [facility].
--- NOTE | 2020-03-05 01:00 | PRG ---
DATE OF SERVICE: 03/05/2020 Events note. The patient's respiratory status worsens, was moved to the unit, coming by to check on him. Blood pressure is in the upper 70s over 40s, pulse rate is not fast around 100. Fairly obtunded, response somewhat, fairly labored breathing. X-ray shows patchy infiltrates throughout. So, question basically is do we need to consider . He may need pressors soon. We are going to put him on fluids first and see if his blood pressure comes up, consider put him on BiPAP for better respiratory control. May need to be intubated later tonight. Job ID: [id number]
[2020-03-05 01:18] LABS: Actual Bicarbonate (HCO3a) 21.5 mEq/L (22-28); Base Excess (BEa) -5.5 mEq/L (-2.0 to +3.0); CO2 Tension 48.2 mmHg (35.0-45.0); Calcium, Ionized (arterial) 1.21 mmol/L (1.12-1.30); Carboxyhemoglobin (COHb) 0.7 gm% (0.0-3.0); Hemoglobin (Hb) 13.3 g/dL (14.0-18.0); Potassium - ABG Lab 4.15 mmol/L (3.70-5.30); pH, Arterial 7.27 (7.35-7.45)
[2020-03-05] MEDS ORDERED: Electrolyte Replacement Protoc 1 EACH EACH IVPB ONE (01:23)
[2020-03-05 01:25] LABS: O2 Tension (PaO2), arterial 51.3 mmHg (80.0-100.0)
[2020-03-05] MEDS ORDERED: Propofol BOLUS 1,000 MG/100 ML VIAL IV PRN (01:29)
[2020-03-05] MEDS ORDERED: DISCONTINUE PREVIOUS NARCOTIC PAIN MEDICATIONS AND BENZODIAZEPINES FS SCH (01:29)
[2020-03-05] MEDS ORDERED: Fentanyl BOLUS 250 ML IVPB PRN (01:29)
[2020-03-05] MEDS ORDERED: Morphine 2 MG/ML VIAL SLOW IVP PRN (01:29)
[2020-03-05] MEDS ORDERED: Ventilator Sedation Protocol 1 EACH FS SCH (01:30)
--- NOTE | 2020-03-05 01:53 | PDOC.BPN ---
- Brief Progress Note Patient continued to decompensate. CXR showing worsening diffuse infiltrates. ABG at 0115 showing pH 7.268, Co2 48, Ow 51.6 on HFNC. Patient to be intubated by ER physician. BPs have been low with MAP around 64. Central line to be placed as well.
[2020-03-05] MEDS: fentaNYL Citrate/PF 2,000 MCG in Sodium Chloride 0.9% 60 ML IV SCH ×2 (02:15→19:37)
[2020-03-05] MEDS: Propofol 1,000 MG/100 ML VIAL IV PRN ×3 (02:30→17:01)
[2020-03-05 02:40] LABS: Actual Bicarbonate (HCO3a) 22.1 mEq/L (22-28); Base Excess (BEa) -5.4 mEq/L (-2.0 to +3.0); CO2 Tension 51.2 mmHg (35.0-45.0); Carboxyhemoglobin (COHb) 0.6 gm% (0.0-3.0); Hemoglobin (Hb) 13.4 g/dL (14.0-18.0); Potassium - ABG Lab 4.49 mmol/L (3.70-5.30)
[2020-03-05 02:42] LABS: Puncture Site LRA; pH, Arterial 7.25 (7.35-7.45)
[2020-03-05] MEDS ORDERED: Succinylcholine Chloride 200 MG/10 ML VIAL IV SCH (02:45)
[2020-03-05] MEDS: Lorazepam 2 MG/ML VIAL SLOW IVP PRN (02:46)
[2020-03-05] MEDS: Norepinephrine 8 MG/0.9% NS 250 ML IVPB PRN ×3 (02:46→23:32)
[2020-03-05] MEDS: Lactated Ringer's 1,000 ML IV SCH ×3 (03:21→17:01)
[2020-03-05 04:40] LABS: ALT (SGPT) 13 U/L (8-55); AST (SGOT) 17 U/L (5-34); Albumin 2.8 g/dL (3.5-5.0); Alkaline Phosphatase 71 U/L (40-110); Anion Gap 16 mmol/L (10-20); BUN (Urea Nitrogen) 79 mg/dL (8.4-25.7); Bilirubin, Total 0.4 mg/dL (0.2-1.2); Calc. Creatinine Clearance 32 mL/min (70-130); Calcium 8.8 mg/dL (7.8-10.44); Carbon Dioxide 23 mmol/L (22-29); Chloride 107 mmol/L (98-107); Estimated GFR-MDRD 20; Globulin 3.5 g/dL (2.4-3.5); Glucose 275 mg/dL (70-105); Potassium 4.4 mmol/L (3.5-5.1); Protein, Total 6.3 g/dL (6.0-8.3); Sodium 142 mmol/L (136-145)
[2020-03-05 05:39] LABS: Anisocytosis SLIGHT = 6-15 cells (100X) (0-5/hpf); Band 7 % (5-11); Burr Cells SLIGHT = 2-5 cells (100X) (0-1/hpf); Hemoglobin 12.1 g/dL (14.0-18.0); Hypochromia SLIGHT = 6-15 cells (100X) (0-5/hpf); Large Platelets SLIGHT; Lymphocytes 5 % (21-51); MDiff Complete? YES; Mean Corpuscular HGB CONC 29.5 g/dL (32.0-36.0); Mean Corpuscular Hemoglobin 23.2 pg (27.0-31.0); Mean Corpuscular Volume 78.6 fL (78.0-98.0); Mean Platelet Volume 11.6 fL (7.4-10.4); Microcytosis SLIGHT = 6-15 cells (100X) (0-5/hpf); Monocytes 3 % (0-10); Neutrophil 84 % (42-75); Nucleated RBC 2 % (0); Ovalocytes SLIGHT = 2-5 cells (100X) (0-1/hpf); Platelet Count 404 thou/uL (130-400); Platelet Morphology Comment Appears Increased; Poikilocytosis SLIGHT = 6-15 cells (100X) (0-5/hpf); Polychromasia SLIGHT = 2-3 cells (100X) (0-2/hpf); RBC Distribution Width 20.7 % (11.5-14.5); Reactive Lymphocytes 1 % (0-10); Red Blood Cell (RBC) Count 5.23 mill/uL (4.70-6.10); Schistocytes SLIGHT = 2-5 cells (100X) (0-1/hpf); Target Cells SLIGHT = 2-5 cells (100X) (0-1/hpf); Tear Drops SLIGHT = 2-5 cells (100X) (0-1/hpf); White Blood Cell (WBC) Count 17.5 thou/uL (4.8-10.8)
--- NOTE | 2020-03-05 06:06 | PDOC.FM ---
- Subjective Subjective: Intubated and sedated. - Objective MAR Reviewed: Yes Vital Signs & Weight: Vital Signs (12 hours) Temp Pulse Resp BP BP Pulse Ox 03/05/20 04:00 16 03/05/20 02:15 70 75/52 L 03/05/20 02:00 16 97 03/05/20 00:32 96 03/04/20 23:33 98.6 F 03/04/20 23:30 100 03/04/20 20:03 98.2 F 79 26 H 110/65 96 Weight Weight 102.2 kg Most Recent Monitor Data Heart Rate from ECG 63 NIBP 96/71 NIBP BP-Mean 79 Respiration from ECG 18 SpO2 99 I&O: 03/03/20 03/04/20 03/05/20 06:59 06:59 06:59 Intake Total 1107 Output Total 245 Balance 862 Result Diagrams: 03/05/20 03:36 03/05/20 03:36 Radiology: CXR: multifocal pneumonia Phys Exam - Physical Examination Constitutional: NAD HEENT: PERRLA, moist MMs Neck: no JVD Respiratory: no wheezing, no rales, no rhonchi, clear to auscultation bilateral Cardiovascular: RRR, no significant murmur Gastrointestinal: soft, non-tender Musculoskeletal: no edema Skin: no rash Dx/Plan (1) Pneumonia due to COVID-19 virus Code(s): U07.1 - COVID-19; J12.89 - OTHER VIRAL PNEUMONIA Status: Acute (2) DM2 (diabetes mellitus, type 2) Status: Chronic Qualifiers: Diabetes mellitus physics instructor insulin use: without physics instructor use Diabetes mellitus complication status: with kidney complications Diabetes mellitus complication detail: with chronic kidney disease Chronic kidney disease stage : stage 3 (moderate) Qualified Code(s): E11.22 - Type 2 diabetes mellitus with diabetic chronic kidney disease; N18.3 - Chronic kidney disease, stage 3 ( moderate) (3) Gout Code(s): M10.9 - GOUT, UNSPECIFIED Status: Chronic (4) HLD (hyperlipidemia) Code(s): E78.5 - HYPERLIPIDEMIA, UNSPECIFIED Status: Chronic (5) HTN (hypertension) Code(s): I10 - ESSENTIAL (PRIMARY) HYPERTENSION Status: Chronic Qualifiers: Hypertension type: essential hypertension Qualified Code(s): I10 - Essential (primary) hypertension (6) Osteoarthritis Code(s): M19.90 - UNSPECIFIED OSTEOARTHRITIS, UNSPECIFIED SITE Status: Chronic - Plan Plan: Sepsis 2/2 COVID-19 Pnemonia likely vs bacterial pneumonia -tested positive on 02/24, symptoms since approx 02/23 -Cefepime for coverage of pseudomonas pneumonia given leukocytosis, procal 0.69 -Warfarin for anticoagulation -Ordering plasma, outside the window for remdesivir, does not meet criteria for IL-6 inhibitor -Continue steroids -Intubated 03/05/2020. Central line placed 03/05/20. 2/2 worsening respiratory status. Hypotension - On levophed @ 15 for pressure support. Acute kidney injury with CKD 3 -Cr near 2 upon discharge, now 3.58 -will hold nephrotoxic medications -will decrease lasix to once daily from BID for gentler diuresis T2DM -Hold home medications and cover with lantus/SSI Hypertension -continue home metoprolol -will hold lisinopril 2/2 LAURA Gout -continue colchicine, allopurinol Hyperlipidemia -continue home atorvastatin Hx of AV valve replacement -currently on warfarin, will continue -check PT, PTT, INR Code: Full Prophylaxis: Warfarin Family: None at bedside Fluids: SL Diet: CC Disposition: Inpatient, guarded, CCU. PCP: Dr. Kohli
[2020-03-05] MEDS: Ezetimibe 10 MG TAB PO SCH (07:26)
[2020-03-05] MEDS: Colchicine 0.6 MG TAB PO SCH (07:26)
[2020-03-05] MEDS: Cholecalciferol 1,000 UNITS (25 MCG) TAB PO SCH (07:26)
[2020-03-05] MEDS: Allopurinol 300 MG TAB PO SCH (07:27)
[2020-03-05] MEDS: Famotidine/PF 20 mg/2ml Vial SLOW IVP SCH (07:27)
--- NOTE | 2020-03-05 07:29 | RAD ---
SINGLE VIEW CHEST: Date: 03/05/2020 COMPARISON: 03/05/2020. HISTORY: Central line placement and intubation. Respiratory failure. Tachypnea. FINDINGS: Single view of the chest shows normal size cardiomediastinal silhouette. The patient is status post s ternotomy. An endotracheal tube is seen in good position with its tip between the clavicles. Diffuse multifocal infiltrates are seen consistent with multifocal pneumonia. IMPRESSION: 1. Appropriate position of endotracheal tube. 2. Multifocal pneumonia. POS: EAA
[2020-03-05] MEDS ORDERED: Furosemide 40 MG TAB PO SCH (07:30)
--- NOTE | 2020-03-05 07:30 | RAD ---
SINGLE VIEW CHEST: Date: 03/04/2020 HISTORY: Tachypnea. FINDINGS: Single view of the chest shows a normal sized cardiomediastinal silhouette. The patient is status pos t sternotomy. Diffuse multifocal infiltrates are seen, which have worsened compared to the prior exam . No pleural effusion is seen. IMPRESSION: Multifocal pneumonia. POS: EAA
[2020-03-05] MEDS ORDERED: Dexamethasone 4 MG TAB PO SCH (08:00)
[2020-03-05] MEDS: Aspirin 81 mg Enteric Coated Tablet PO SCH (08:13)
[2020-03-05] MEDS ORDERED: Dexamethasone 10 MG/ML VIAL SLOW IVP SCH (09:00)
[2020-03-05] MEDS ORDERED: Dexamethasone 4 mg/ml Vial SLOW IVP SCH (09:00)
[2020-03-05] MEDS ORDERED: Enoxaparin Sodium 30 MG/0.3 ML SYRINGE SC SCH (09:00)
[2020-03-05] MEDS: methylPREDNISolone Sod Succ 40 MG VIAL IVP SCH ×3 (12:03→23:31)
[2020-03-05] MEDS: Cefepime 2 GM in Sodium Chloride 0.9% 100 ML IVPB SCH (17:01)
--- NOTE | 2020-03-05 18:03 | PRG ---
DATE OF SERVICE: 03/05/2020 This is a 54-year-old, who was intubated overnight. A femoral line was placed, he is now on Levophed. This morning, seems to be doing better from a respiratory standpoint in the sense that he is breathing a lot more comfortably. Oxygenating well as blood pressure is in the one teens. Still extremely poor prognosis as a bounce-back COVID patient now with respiratory failure and really multi-system failure as his INR is elevated, although it could be from the warfarin, but kidney function is diminished and white count extremely elevated at 17. LDH was high at 594. C-reactive protein is at 12. Procalcitonin actually is not bad. Ferritin is not bad at 161. Lactic acid 2.7. Continue supportive care and I believe he is too far out for antiviral. Job ID: [id number]
--- NOTE | 2020-03-05 18:24 | CON ---
DATE OF CONSULTATION: HISTORY OF PRESENT ILLNESS: Fei Teague is a 54-year-old gentleman, who was readmitted to the hospital on 03/04. He was just discharged from the hospital several days ago with a diagnosis of coronavirus positive pneumonia, presented with worsening respiratory failure. X-ray shows diffuse pulmonary infiltrates, worse since his discharge. He was intubated last night. He is on the vent, on Levophed. Sedated. Additional information is such that longstanding history of diabetes, renal failure, hypertension, and gout. PREVIOUS SURGERIES: Aortic valve replacement. HOME MEDICATIONS: Include Coumadin 10, lisinopril 10, colchicine 0.6, metoprolol 150, allopurinol 300, Lasix 40, and Zetia 5. ALLERGIES: NO ALLERGIES. REVIEW OF SYSTEMS: Otherwise, unobtainable. PHYSICAL EXAMINATION: VITAL SIGNS: Pulse 69, 60% FiO2, blood pressure 113/78, pulse rate 18. CHEST: Bilateral crackles and rhonchi. CARDIAC: Sinus tach. ABDOMEN: Soft. LABORATORY STUDIES: White count 17,000, H and H of 12 and 41, platelet count is 404. D-dimer is 0.5. His pO2 is 69, pCO2 is 51, pH 7.25. 60%, PEEP of 8. BUN and creatinine at 79 and 3.8. C-reactive protein is 12, serum ferritin is 161. X-ray shows diffuse infiltrates. ASSESSMENT AND PLAN: 1. Respiratory failure: Coronavirus positive pneumonia. 2. Acute respiratory distress syndrome. 3. Renal failure. Switch over to his Solu-Medrol, doxycycline. Continue pressors. Serial exam and lab. Input from Nephrology. He may benefit from IL-6 antibody treatment. 4. It is okay with pharmacy. This is a 45-minute critical care time. Job ID: [id number]
[2020-03-05] MEDS: Atorvastatin Calcium 40 MG TAB PO SCH (20:36)
[2020-03-06] MEDS: Lactated Ringer's 1,000 ML IV SCH ×3 (02:38→16:31)
[2020-03-06] MEDS: Propofol 1,000 MG/100 ML VIAL IV PRN ×5 (02:40→21:02)
[2020-03-06 04:53] LABS: Anion Gap 17 mmol/L (10-20); BUN (Urea Nitrogen) 81 mg/dL (8.4-25.7); Calc. Creatinine Clearance 35 mL/min (70-130); Calcium 8.3 mg/dL (7.8-10.44); Carbon Dioxide 18 mmol/L (22-29); Chloride 111 mmol/L (98-107); Estimated GFR-MDRD 23; Glucose 392 mg/dL (70-105); Potassium 4.3 mmol/L (3.5-5.1); Sodium 142 mmol/L (136-145)
[2020-03-06 05:07] LABS: Prothrombin Time 39.9 sec (12.0-14.7)
[2020-03-06 05:08] LABS: PTT 72.6 sec (22.9-36.1)
[2020-03-06 05:17] LABS: INR-International Normal Ratio 4.2
[2020-03-06] MEDS: methylPREDNISolone Sod Succ 40 MG VIAL IVP SCH ×3 (06:11→17:11)
--- NOTE | 2020-03-06 06:17 | PDOC.FM ---
- Subjective Subjective: Intubated and sedated. Is aware and will blink in response to questions. Denies pain or discomfort. - Objective MAR Reviewed: Yes Vital Signs & Weight: Vital Signs (12 hours) Temp Pulse Resp BP Pulse Ox 03/06/20 04:00 18 03/06/20 02:34 69 121/74 03/06/20 02:00 18 03/06/20 00:33 70 131/82 03/06/20 00:00 18 03/05/20 22:37 61 126/76 03/05/20 22:00 18 03/05/20 21:00 98.7 F 03/05/20 20:55 98.7 F 03/05/20 20:40 98.5 F 03/05/20 20:00 99.4 F 18 03/05/20 19:00 100 03/05/20 18:45 66 101/72 Weight Admit Weight 102.603 kg Weight 102.2 kg Most Recent Monitor Data Heart Rate from ECG 69 NIBP 121/78 NIBP BP-Mean 92 Respiration from ECG 18 SpO2 100 I&O: 03/04/20 03/05/20 03/06/20 06:59 06:59 06:59 Intake Total 1666.4 2163 Output Total 370 1830 Balance 1296.4 333 Result Diagrams: 03/06/20 04:24 03/06/20 04:24 Phys Exam - Physical Examination Constitutional: NAD HEENT: PERRLA, moist MMs Neck: no JVD Respiratory: no wheezing, no rales, no rhonchi, clear to auscultation bilateral Cardiovascular: RRR, no significant murmur Gastrointestinal: soft, non-tender Musculoskeletal: no edema Psychiatric: normal affect Skin: no rash, normal turgor Dx/Plan (1) Pneumonia due to COVID-19 virus Code(s): U07.1 - COVID-19; J12.89 - OTHER VIRAL PNEUMONIA Status: Acute (2) DM2 (diabetes mellitus, type 2) Status: Chronic Qualifiers: Diabetes mellitus manager terminal insulin use: without senior living use Diabetes mellitus complication status: with kidney complications Diabetes mellitus complication detail: with chronic kidney disease Chronic kidney disease stage : stage 3 (moderate) Qualified Code(s): E11.22 - Type 2 diabetes mellitus with diabetic chronic kidney disease; N18.3 - Chronic kidney disease, stage 3 ( moderate) (3) Gout Code(s): M10.9 - GOUT, UNSPECIFIED Status: Chronic (4) HLD (hyperlipidemia) Code(s): E78.5 - HYPERLIPIDEMIA, UNSPECIFIED Status: Chronic (5) HTN (hypertension) Code(s): I10 - ESSENTIAL (PRIMARY) HYPERTENSION Status: Chronic Qualifiers: Hypertension type: essential hypertension Qualified Code(s): I10 - Essential (primary) hypertension (6) Osteoarthritis Code(s): M19.90 - UNSPECIFIED OSTEOARTHRITIS, UNSPECIFIED SITE Status: Chronic - Plan Plan: Sepsis 2/2 COVID-19 Pnemonia likely vs bacterial pneumonia -tested positive on 02/24, symptoms since approx 02/23 -Cefepime for coverage of pseudomonas pneumonia given leukocytosis, procal 0.69 -Started Doxycycline IV 03/05. -Warfarin for anticoagulation, INR 4.2 this morning. -s/p convalescent plasma 03/05. Outside the window for remdesivir, does not meet criteria for IL-6 inhibitor. -Continue steroids -Intubated 03/05/2020. Central line placed 03/05/20. 2/2 worsening respiratory status. Hypotension - On levophed Acute kidney injury with CKD 3 -Cr near 2 upon discharge, now 3.58 -will hold nephrotoxic medications -Nephrology consulted, Dr. Trevino most recently saw the patient outpatient. T2DM -Hold home medications and cover with lantus/SSI Hypertension -continue home metoprolol -will hold lisinopril 2/2 LAURA Gout -continue colchicine, allopurinol Hyperlipidemia -continue home atorvastatin Hx of AV valve replacement -currently on warfarin, will continue -check PT, PTT, INR Code: Full Prophylaxis: Warfarin Fluids: LR @ 100 Diet: CC Disposition: Inpatient, guarded, CCU. PCP: Dr. Kohli
[2020-03-06 06:20] LABS: Band 15 % (5-11); Hemoglobin 11.5 g/dL (14.0-18.0); Lymphocytes 1 % (21-51); MDiff Complete? YES; Mean Corpuscular HGB CONC 29.6 g/dL (32.0-36.0); Mean Corpuscular Hemoglobin 22.7 pg (27.0-31.0); Mean Corpuscular Volume 76.9 fL (78.0-98.0); Mean Platelet Volume 11.8 fL (7.4-10.4); Monocytes 5 % (0-10); Neutrophil 79 % (42-75); Platelet Count 460 thou/uL (130-400); RBC Distribution Width 20.9 % (11.5-14.5); Red Blood Cell (RBC) Count 5.06 mill/uL (4.70-6.10); White Blood Cell (WBC) Count 30.3 thou/uL (4.8-10.8)
--- NOTE | 2020-03-06 06:57 | CON ---
DATE OF CONSULTATION: Reason for consultation: Chronic kidney disease History of present illness Patient is a 54-year-old male with past medical history of diabetes mellitus, hypertension who was admitted for evaluation of fever and shortness of breath. The patient was initially admitted to the floor but was found to have respiratory failure due to which he was moved to CCU and was intubated. Information obtained from the chart. Patient apparently was admitted to this facility previously and was discharged on 02/28. He continued to experience shortness of breath due to which he came back to ER. There was no mention of GI or complaints. Past medical history: Diabetes mellitus, hypertension, gout, hyperlipidemia, vitamin-D deficiency, chronic kidney disease stage 3 Past surgical history: Aortic valve replacement Family history: Positive for hypertension Social history: Patient does not smoke cigarettes, does not abuse drugs or alcohol Review of systems Gen.: fever as mentioned above, no chills All the 14 systems reviewed except for the ones mentioned above are negative Vitals Blood pressure-111/74 Heart rate -64 per minute Respiratory rate -18 per minute Oxygen saturation- 99% Urine output 635 mL since beginning of the shift. Physical examination Patient is on airborne isolation; Constitutional: intubated and sedated Heart: Regular rhythm, normal rate on monitor Neurological: Sedated with propofol Labs and Imaging reviewed. WBC-17.5, hemoglobin 12.1, platelet count 404 Sodium 142, potassium 4.4, BUN 79, creatinine 3.81 Medications reviewed On Levophed, allopurinol and colchicine, cefepime, Toprol-XL Patient is on LR at 100 mL/hour ASSESSMENT AND PLAN: 1. Acute on chronic kidney disease. 2. Pneumonia due to COVID-19. 3. Diabetes mellitus. 4. Hypertension. 5. Gout. -Patient's baseline creatinine seems to be around 1.7 to 1.8 Patient creatinine on recent discharge was 2.13. Patient likely did not reach steady state from recent episode of acute kidney injury.Likely etiology is combination of prerenal and sepsis. Will check urinalysis. Will monitor for nephrotoxins, patient is currently on cefepime and doxycycline. -check uric acid, continue colchicine on the allopurinol. -Patient's azotemia could be combination of diuresis and steroids Thank you for allowing me to participate in the management of this pt Job ID: [id number] [facility]
[2020-03-06] MEDS: Cholecalciferol 1,000 UNITS (25 MCG) TAB PO SCH (07:17)
[2020-03-06] MEDS: Colchicine 0.6 MG TAB PO SCH (07:17)
[2020-03-06] MEDS: Ezetimibe 10 MG TAB PO SCH (07:17)
[2020-03-06] MEDS: Famotidine/PF 20 mg/2ml Vial SLOW IVP SCH (07:18)
[2020-03-06] MEDS: Allopurinol 300 MG TAB PO SCH (07:18)
[2020-03-06] MEDS: Norepinephrine 8 MG/0.9% NS 250 ML IVPB PRN (07:18)
[2020-03-06] MEDS: Aspirin 81 mg Enteric Coated Tablet PO SCH (07:18)
[2020-03-06 08:03] LABS: Base Excess (BEa) -7.4 mEq/L (-2.0 to +3.0); CO2 Tension 35.9 mmHg (35.0-45.0); Calcium, Ionized (arterial) 1.17 mmol/L (1.12-1.30); Carboxyhemoglobin (COHb) 0.3 gm% (0.0-3.0); Hemoglobin (Hb) 12.6 g/dL (14.0-18.0); O2 Tension (PaO2), arterial 79.8 mmHg (80.0-100.0); Potassium - ABG Lab 4.23 mmol/L (3.70-5.30); pH, Arterial 7.32 (7.35-7.45)
[2020-03-06 08:17] LABS: ALV-art Gradient 303.125 (0-20); Puncture Site RRAD
--- NOTE | 2020-03-06 08:41 | RAD ---
SINGLE VIEW CHEST: HISTORY: Ventilated patient with respiratory failure. COMPARISON: 03/05/20 FINDINGS: A single view of the chest shows a normal sized cardiomediastinal silhouette. The patient is status p ost aortic valve repair. An NG tube has been placed with its tip in the stomach. The endotracheal tub e is unchanged in position. There are stable multifocal opacities in the lungs. IMPRESSION: Stable multifocal infiltrates. POS: EAA
--- NOTE | 2020-03-06 11:08 | PRG ---
DATE OF SERVICE: 03/06/2020 SUBJECTIVE: A 54-year-old gentleman, intubated on the vent, sedated. OBJECTIVE: VITAL SIGNS: Respiratory rate 18, sats on 60% of 100%, blood pressure 130/84, . CHEST: Bilateral crackles, rhonchi. CARDIAC: Normal S1 and S2. No gallop. ABDOMEN: No masses. LABORATORY DATA: White count is elevated at 30,000, it was 17,000 yesterday. His INR is 4.2. PO2 of 79, pCO2 of creatinine is 3 and BUN is 81. IMPRESSION: Acute on chronic respiratory failure, jones positive pneumonia. He received convalescent plasma, not a candidate for either remdesivir or IL-6 antibody. We will continue the high-dose steroids for a period of days. We may re-culture and start anti-Staph antibiotics. His white counts have come down. One-half hour of critical time. Job ID: [id number]
[2020-03-06] MEDS: Lorazepam 2 MG/ML VIAL SLOW IVP PRN (12:24)
--- NOTE | 2020-03-06 12:36 | PRG ---
DATE OF SERVICE: 03/06/2020 Subjective: Patient is seen in ICU. Patient continues to be intubated and sedated, on mechanical ventilator. He is on 50% FiO2. His Levophed requirements are decreasing. Patient is currently on propofol and Diprivan for sedation. Review of systems Gen.: No fever, no chills All the 14 systems reviewed except for the ones mentioned above are negative Vital signs Blood pressure-119/76 Heart rate-16/minute Respirate rate-18/minute Physical examination Constitutional: not in pain or discomfort, HEENT: ET tube and NG tube noted Neck: Trachea midline, no lymphadenopathy Heart: Regular rate and rhythm on monitor Lungs: on mechanical ventilator Abdomen: Not distended Extremities: No tenderness Neurological: Patient is sedated Skin: No rash, no ulcers Psychological: Not agitated Labs and Imaging reviewed. WBC 30.3, hemoglobin 11.5, hematocrit 38.9, platelet count 460 Sodium 142, potassium 4.3, bicarb 18, BUN 81, creatinine 3.43 Assessment and plan LAURA on CKD stage 3/4 Metabolic acidosis Hypertension Diabetes mellitus Pneumonia due to COVID-19 Patient is nonoliguric, urine output satisfactory. Patient is currently getting LR at 100 mL/hour. Patient's renal function is stable. Medications reviewed, avoid nephrotoxins. Patient's blood pressure is stable, continue hydralazine p.r.n.. May need to start on bicarbonate replacement if patient continues to have metabolic acidosis. Discussed with ICU nurse at the bedside Job ID: [id number] MTDD
[2020-03-06] MEDS: Insulin Regular 300 UNITS/3 ML VIAL SC PRN ×3 (12:40→20:29)
[2020-03-06] MEDS ORDERED: Dextrose 5% in Water 1,000 ML IV PRN (13:11)
[2020-03-06] MEDS ORDERED: Dextrose 50% Abboject 50 ML SYRINGE IVP PRN (13:11)
--- NOTE | 2020-03-06 13:50 | PRG ---
DATE OF SERVICE: 03/06/2020 Please see the note from Dr. Eveline Denny, for which I agree. The patient was seen, evaluated, discussed and examined with the residents at bedside. He has been pretty stable, intubated in the ICU. Dr. Randall added doxycycline to the cefepime. Did get plasma. Too late for antivirals. Weaning off the pressors and pretty stable, otherwise nothing new has occurred which is obviously good. Plan is to continue same management for now, probably needs to start getting OG feeds and we will start that today. Of note, his INR is down to 4.2, as it was supratherapeutic when he came in. No other major changes today. Job ID: [id number]
[2020-03-06] MEDS: fentaNYL Citrate/PF 2,000 MCG in Sodium Chloride 0.9% 60 ML IV SCH (14:29)
[2020-03-06] MEDS: Cefepime 2 GM in Sodium Chloride 0.9% 100 ML IVPB SCH (17:11)
[2020-03-06] MEDS: Atorvastatin Calcium 40 MG TAB PO SCH (20:12)
[2020-03-07] MEDS: methylPREDNISolone Sod Succ 40 MG VIAL IVP SCH ×5 (00:40→23:59)
[2020-03-07] MEDS: Insulin Regular 300 UNITS/3 ML VIAL SC PRN ×4 (00:41→11:02)
[2020-03-07] MEDS: Propofol 1,000 MG/100 ML VIAL IV PRN ×6 (02:29→20:51)
[2020-03-07] MEDS: Norepinephrine 8 MG/0.9% NS 250 ML IVPB PRN (02:29)
[2020-03-07 05:31] LABS: Anion Gap 13 mmol/L (10-20); BUN (Urea Nitrogen) 74 mg/dL (8.4-25.7); Calc. Creatinine Clearance 44 mL/min (70-130); Calcium 8.2 mg/dL (7.8-10.44); Carbon Dioxide 20 mmol/L (22-29); Chloride 116 mmol/L (98-107); Estimated GFR-MDRD 30; Glucose 357 mg/dL (70-105); Potassium 4.1 mmol/L (3.5-5.1); Sodium 145 mmol/L (136-145)
[2020-03-07 05:43] LABS: Anisocytosis SLIGHT = 6-15 cells (100X) (0-5/hpf); Band 1 % (5-11); Burr Cells SLIGHT = 2-5 cells (100X) (0-1/hpf); Hemoglobin 11.6 g/dL (14.0-18.0); Lymphocytes 3 % (21-51); MDiff Complete? YES; Mean Corpuscular HGB CONC 29.4 g/dL (32.0-36.0); Mean Corpuscular Hemoglobin 22.7 pg (27.0-31.0); Mean Corpuscular Volume 77.3 fL (78.0-98.0); Mean Platelet Volume 11.5 fL (7.4-10.4); Monocytes 7 % (0-10); Neutrophil 89 % (42-75); Platelet Count 377 thou/uL (130-400); Platelet Morphology Comment Appears Adequate; RBC Distribution Width 22.3 % (11.5-14.5); Red Blood Cell (RBC) Count 5.12 mill/uL (4.70-6.10); Schistocytes SLIGHT = 2-5 cells (100X) (0-1/hpf); Target Cells SLIGHT = 2-5 cells (100X) (0-1/hpf); White Blood Cell (WBC) Count 23.4 thou/uL (4.8-10.8)
--- NOTE | 2020-03-07 06:25 | PDOC.FM ---
- Subjective Subjective: Intubated and sedated. - Objective MAR Reviewed: Yes Vital Signs & Weight: Vital Signs (12 hours) Temp Pulse Resp BP Pulse Ox 03/07/20 06:00 18 03/07/20 04:00 97.7 F 18 03/07/20 02:20 64 135/66 03/07/20 02:00 18 03/07/20 00:45 75 112/73 03/07/20 00:00 97.6 F 18 03/06/20 22:00 18 03/06/20 21:56 75 123/75 03/06/20 20:00 98.1 F 03/06/20 19:57 100 03/06/20 19:35 67 95/67 Weight Admit Weight 102.603 kg Weight 102.2 kg Most Recent Monitor Data Heart Rate from ECG 55 NIBP 141/85 NIBP BP-Mean 103 Respiration from ECG 18 SpO2 99 I&O: 03/05/20 03/06/20 03/07/20 06:59 06:59 06:59 Intake Total 1666.4 4288 2211 Output Total 370 2004 1974 Balance 1296.4 2283 236 Result Diagrams: 03/07/20 09:30 03/07/20 04:35 Phys Exam - Physical Examination Constitutional: NAD HEENT: PERRLA, moist MMs Neck: no JVD Respiratory: no wheezing, no rales, no rhonchi, clear to auscultation bilateral Cardiovascular: RRR, no significant murmur Gastrointestinal: soft, non-tender Musculoskeletal: no edema Skin: no rash, normal turgor Dx/Plan (1) Pneumonia due to COVID-19 virus Code(s): U07.1 - COVID-19; J12.89 - OTHER VIRAL PNEUMONIA Status: Acute (2) DM2 (diabetes mellitus, type 2) Status: Chronic Qualifiers: Diabetes mellitus terminal make up operator insulin use: without correction use Diabetes mellitus complication status: with kidney complications Diabetes mellitus complication detail: with chronic kidney disease Chronic kidney disease stage : stage 3 (moderate) Qualified Code(s): E11.22 - Type 2 diabetes mellitus with diabetic chronic kidney disease; N18.3 - Chronic kidney disease, stage 3 ( moderate) (3) Gout Code(s): M10.9 - GOUT, UNSPECIFIED Status: Chronic (4) HLD (hyperlipidemia) Code(s): E78.5 - HYPERLIPIDEMIA, UNSPECIFIED Status: Chronic (5) HTN (hypertension) Code(s): I10 - ESSENTIAL (PRIMARY) HYPERTENSION Status: Chronic Qualifiers: Hypertension type: essential hypertension Qualified Code(s): I10 - Essential (primary) hypertension (6) Osteoarthritis Code(s): M19.90 - UNSPECIFIED OSTEOARTHRITIS, UNSPECIFIED SITE Status: Chronic - Plan Plan: Sepsis 2/2 COVID-19 Pnemonia likely vs bacterial pneumonia -tested positive on 02/24, symptoms since approx 02/23 -Cefepime for coverage of pseudomonas pneumonia given leukocytosis, procal 0.69. Started Doxycycline IV 03/05. -Warfarin for anticoagulation, INR 7.0 this morning. Continue to hold warfarin. -s/p convalescent plasma 03/05. Outside the window for remdesivir, does not meet criteria for IL-6 inhibitor. -Continue steroids -Intubated 03/05/2020. Central line placed 03/05/20. 2/2 worsening respiratory status. Hypotension - On levophed Acute kidney injury, CKD 3 -will hold nephrotoxic medications -Nephrology consulted, Dr. Trevino most recently saw the patient outpatient. T2DM -Hold home medications and cover with lantus/SSI Hypertension -continue home metoprolol -will hold lisinopril 2/2 LAURA Gout -continue colchicine, allopurinol Hyperlipidemia -continue home atorvastatin Hx of AV valve replacement -on warfarin at home, holding. -check PT, PTT, INR daily. Code: Full Prophylaxis: Warfarin Fluids: LR @ 100 Diet: tube feeds Disposition: Inpatient, guarded, CCU. PCP: Dr. Kohli Addendum - Attending - Attending Attestation Date/Time: 03/07/20 1218 I personally evaluated the patient and discussed the management with Dr. Denny. I agree with the History, Examination, Assessment and Plan documented above with any addition or exceptions noted below. Patient intubated and sedated 2/2 resp failure from COVID pneumonia. He Continues on abx and steroids. O2 sats currently stable on current vent settings. S/p plasma infusion. ID and Pulm on board. Not remdesevir candidate and inflammatory markers overall low currently. He continues to be coagulopathic , likely complicated by steroid use and his inflammatory state. No DIC. Consider FFP for getting him near normal. No evidence of bleeding at this time. Renal function somewhat improved, continue IVF.
[2020-03-07] MEDS: Lactated Ringer's 1,000 ML IV SCH ×3 (06:33→16:04)
[2020-03-07 07:37] LABS: CO2 Tension 34.7 mmHg (35.0-45.0); O2 Tension (PaO2), arterial 64.8 mmHg (80.0-100.0); pH, Arterial 7.36 (7.35-7.45)
[2020-03-07 07:38] LABS: Actual Bicarbonate (HCO3a) 19.3 mEq/L (22-28); Base Excess (BEa) -5.3 mEq/L (-2.0 to +3.0); Calcium, Ionized (arterial) 1.19 mmol/L (1.12-1.30); Carboxyhemoglobin (COHb) 0.3 gm% (0.0-3.0); Hemoglobin (Hb) 12.3 g/dL (14.0-18.0)
[2020-03-07] MEDS: Cholecalciferol 1,000 UNITS (25 MCG) TAB PO SCH (07:44)
[2020-03-07] MEDS: Aspirin 81 mg Enteric Coated Tablet PO SCH (07:44)
[2020-03-07] MEDS: Allopurinol 300 MG TAB PO SCH (07:44)
[2020-03-07] MEDS: Ezetimibe 10 MG TAB PO SCH (07:45)
[2020-03-07] MEDS: Famotidine/PF 20 mg/2ml Vial SLOW IVP SCH (07:45)
[2020-03-07] MEDS: Colchicine 0.6 MG TAB PO SCH (07:45)
[2020-03-07 07:50] LABS: Puncture Site LB
[2020-03-07 07:51] LABS: ALV-art Gradient 248.325 (0-20)
--- NOTE | 2020-03-07 08:15 | RAD ---
PORTABLE CHEST: HISTORY: Respiratory failure. COMPARISON: Prior day's exam. FINDINGS: Endotracheal and NG tubes are in satisfactory position. Heart size is enlarged with postop sternotom y change. The parenchymal infiltrative lung changes are all stable. Changes are most likely on the basis of COVID pneumonia. IMPRESSION: Extensive bilateral infiltrates stable. POS: KATHERINE
[2020-03-07 08:26] LABS: Prothrombin Time 59.4 sec (12.0-14.7)
[2020-03-07 08:27] LABS: D-Dimer Test 1.57 *mcg/mL (0.27-0.43)
[2020-03-07] MEDS: fentaNYL Citrate/PF 2,000 MCG in Sodium Chloride 0.9% 60 ML IV SCH (08:59)
[2020-03-07] MEDS ORDERED: Phytonadione 10 MG in Sodium Chloride 0.9% 50 ML IVPB SCH (09:15)
[2020-03-07 09:56] LABS: Fibrinogen 661 mg/dL (253-463); Platelet Count 409 thou/uL (130-400)
[2020-03-07 09:57] LABS: PTT 51.1 sec (22.9-36.1); Prothrombin Time 59.7 sec (12.0-14.7)
[2020-03-07] MEDS ORDERED: Dextrose 5% in Water 1,000 ML IV PRN (10:03)
[2020-03-07] MEDS ORDERED: Dextrose 50% Abboject 50 ML SYRINGE SLOW IVP PRN (10:03)
[2020-03-07 10:23] LABS: ALT (SGPT) 11 U/L (8-55); AST (SGOT) 13 U/L (5-34); Albumin 2.7 g/dL (3.5-5.0); Alkaline Phosphatase 70 U/L (40-110); Bilirubin, Direct 0.3 mg/dL (0.1-0.3); Bilirubin, Total 0.3 mg/dL (0.2-1.2)
--- NOTE | 2020-03-07 12:02 | PRG ---
DATE OF SERVICE: 03/07/2020 SUBJECTIVE: The patient is on COVID isolation. OBJECTIVE: VITAL SIGNS: Temperature 97.2, pulse 63, respiratory rate 18, and blood pressure 111/80. LABORATORY DATA: Potassium 4.1, BUN is 74, and creatinine is 2.7. ASSESSMENT AND PLAN: 1. Acute kidney injury on chronic kidney disease stage 3. Improved renal function with current management. Continue current management. Avoid nephrotoxins. Continue hydration as tolerated. 2. Metabolic acidosis, better. 3. Hypertension. 4. Type 2 diabetes. 5. COVID-19 pneumonia. 6. Anemia. 7. Continue supportive care. We will follow. Job ID: [id number]
[2020-03-07 12:09] LABS: FSP-Qualitative Normal (Normal)
--- NOTE | 2020-03-07 13:21 | PRG ---
DATE OF SERVICE: 03/07/2020 SUBJECTIVE: This morning, he remains intubated in the vent. OBJECTIVE: VITAL SIGNS: Blood pressure 140/87, pulse 56, saturations are 100% I's and O's have been positive. CHEST: Decreased breath sounds. Crackles. CARDIAC: Normal S1 and S2. No gallops. ABDOMEN: Soft. LABORATORY DATA: His INR is 7. White count 28,000. A pO2 of 64, pCO2 34, pH 7.36. X-ray revealed bilateral infiltrates. His creatinine 2.7 and BUN 74. IMPRESSION AND PLAN: Respiratory failure, renal failure, and positive virus. Continue steroids, antibiotics, vitamin K. It is unclear why he has prolonged PT/INR unless he has some liver issues. Hepatic panel is being ordered. One-half hour of critical care time. Job ID: [id number]
[2020-03-07] MEDS: HumaLOG 300 UNITS/3 ML VIAL SC PRN ×3 (16:04→23:59)
[2020-03-07] MEDS: Atorvastatin Calcium 40 MG TAB PO SCH (20:51)
[2020-03-07] MEDS: Cefepime 2 GM in Sodium Chloride 0.9% 100 ML IVPB SCH (20:52)
[2020-03-07] MEDS ORDERED: Cefepime 2 GM in Sodium Chloride 0.9% 100 ML IVPB SCH (21:00)
[2020-03-08] MEDS: Lactated Ringer's 1,000 ML IV SCH ×2 (02:14→04:34)
[2020-03-08] MEDS: Propofol 1,000 MG/100 ML VIAL IV PRN ×5 (02:19→20:23)
[2020-03-08] MEDS: fentaNYL Citrate/PF 2,000 MCG in Sodium Chloride 0.9% 60 ML IV SCH (04:35)
[2020-03-08] MEDS: methylPREDNISolone Sod Succ 40 MG VIAL IVP SCH ×3 (05:31→17:19)
[2020-03-08] MEDS: HumaLOG 300 UNITS/3 ML VIAL SC PRN ×5 (05:31→20:27)
[2020-03-08 05:47] LABS: Anion Gap 12 mmol/L (10-20); BUN (Urea Nitrogen) 66 mg/dL (8.4-25.7); Calc. Creatinine Clearance 52 mL/min (70-130); Calcium 7.7 mg/dL (7.8-10.44); Carbon Dioxide 21 mmol/L (22-29); Chloride 117 mmol/L (98-107); Estimated GFR-MDRD 32; Glucose 284 mg/dL (70-105); Potassium 4.3 mmol/L (3.5-5.1); Sodium 146 mmol/L (136-145)
[2020-03-08 05:53] LABS: Band 2 % (5-11); Burr Cells SLIGHT = 2-5 cells (100X) (0-1/hpf); Hemoglobin 11.5 g/dL (14.0-18.0); Hypochromia MODERATE=16-30 cells (100X) (0-5/hpf); Lymphocytes 7 % (21-51); MDiff Complete? YES; Mean Corpuscular HGB CONC 28.6 g/dL (32.0-36.0); Mean Corpuscular Hemoglobin 22.1 pg (27.0-31.0); Mean Corpuscular Volume 77.2 fL (78.0-98.0); Mean Platelet Volume 10.5 fL (7.4-10.4); Monocytes 3 % (0-10); Neutrophil 88 % (42-75); Nucleated RBC 1 % (0); Platelet Count 344 thou/uL (130-400); Platelet Morphology Comment Appears Adequate; Polychromasia SLIGHT = 2-3 cells (100X) (0-2/hpf); RBC Distribution Width 22.4 % (11.5-14.5); Red Blood Cell (RBC) Count 5.19 mill/uL (4.70-6.10); White Blood Cell (WBC) Count 28.4 thou/uL (4.8-10.8)
--- NOTE | 2020-03-08 06:26 | PDOC.FM ---
- Subjective Subjective: Intubated and sedated. - Objective MAR Reviewed: Yes Vital Signs & Weight: Vital Signs (12 hours) Temp Pulse Resp BP Pulse Ox 03/08/20 05:57 18 03/08/20 04:00 18 03/08/20 01:57 18 03/08/20 00:00 98.5 F 18 03/07/20 22:16 84 03/07/20 21:54 18 03/07/20 21:00 97.6 F 03/07/20 20:00 100 03/07/20 19:57 18 03/07/20 18:38 85 116/66 Weight Admit Weight 102.603 kg Weight 107 kg Most Recent Monitor Data Heart Rate from ECG 92 NIBP 107/82 NIBP BP-Mean 90 Respiration from ECG 18 SpO2 99 I&O: 03/06/20 03/07/20 03/08/20 06:59 06:59 06:59 Intake Total 4288 4487.8 4288 Output Total 2004 2099 1775 Balance 2283 2387.8 2513 Result Diagrams: 03/08/20 04:40 03/08/20 04:40 Phys Exam - Physical Examination Constitutional: NAD HEENT: PERRLA, moist MMs Neck: no JVD Respiratory: no wheezing, no rales, no rhonchi, clear to auscultation bilateral Cardiovascular: RRR, no significant murmur Gastrointestinal: soft Musculoskeletal: edema present Skin: no rash, normal turgor Dx/Plan (1) Pneumonia due to COVID-19 virus Code(s): U07.1 - COVID-19; J12.89 - OTHER VIRAL PNEUMONIA Status: Acute (2) DM2 (diabetes mellitus, type 2) Status: Chronic Qualifiers: Diabetes mellitus superintendent terminal insulin use: without chcf use Diabetes mellitus complication status: with kidney complications Diabetes mellitus complication detail: with chronic kidney disease Chronic kidney disease stage : stage 3 (moderate) Qualified Code(s): E11.22 - Type 2 diabetes mellitus with diabetic chronic kidney disease; N18.3 - Chronic kidney disease, stage 3 ( moderate) (3) Gout Code(s): M10.9 - GOUT, UNSPECIFIED Status: Chronic (4) HLD (hyperlipidemia) Code(s): E78.5 - HYPERLIPIDEMIA, UNSPECIFIED Status: Chronic (5) HTN (hypertension) Code(s): I10 - ESSENTIAL (PRIMARY) HYPERTENSION Status: Chronic Qualifiers: Hypertension type: essential hypertension Qualified Code(s): I10 - Essential (primary) hypertension (6) Osteoarthritis Code(s): M19.90 - UNSPECIFIED OSTEOARTHRITIS, UNSPECIFIED SITE Status: Chronic - Plan Plan: Sepsis 2/2 COVID-19 Pnemonia likely vs bacterial pneumonia -tested positive on 02/24, symptoms since approx 02/23 -Cefepime (03/04) & Doxycycline IV (03/05) for coverage of bacterial superimposed infection. -Warfarin for anticoagulation, most recent INR 7.0. Continue to hold warfarin. -s/p convalescent plasma 03/05. Outside the window and does not meet criteria for remdesivir, does not meet criteria for IL-6 inhibitor d/t lack of cytokine storm. -Continue steroids -Intubated 03/05/2020. Central line placed 03/05/20. 2/2 worsening respiratory status. -Will initiate therapeutic lovenox for COVID anticoagulation. Hypotension - On levophed Acute kidney injury, CKD 3 -will hold nephrotoxic medications -Nephrology consulted, Dr. Trevino most recently saw the patient outpatient. - Has been net positive I/O status for the past 3 days. Will discuss adding albumin today to improve perfusion and increase oncotic pressure. He is becoming more edematous. - Will decrease IV fluids and increase free water flushes. T2DM -Hold home medications and cover with lantus/SSI Hypertension -continue home metoprolol -will hold lisinopril 2/2 LAURA Gout -continue colchicine, allopurinol Hyperlipidemia -continue home atorvastatin Hx of AV valve replacement -on warfarin at home, holding. Will cover now with Lovenox as his INR is no longer supratherapeutic. -check PT, PTT, INR daily. Code: Full Prophylaxis: Warfarin Fluids: LR @ 50 Diet: tube feeds Disposition: Inpatient, guarded, CCU. PCP: Dr. Kohli Addendum - Attending - Attending Attestation Date/Time: 03/08/20 1141 I personally evaluated the patient and discussed the management with Dr. Denny. I agree with the History, Examination, Assessment and Plan documented above with any addition or exceptions noted below.. Patient overall stable, but critical. Continue vent support per Pulm. Getting edematous, consider Lasix though monitor renal function closely. May need some free water if hypernatremia worsens. INR improved with Vitamin K, will now need lovenox due to his hypercoag status and recent AV valve replacement.
[2020-03-08 07:45] LABS: Actual Bicarbonate (HCO3a) 18.2 mEq/L (22-28); Base Excess (BEa) -6.1 mEq/L (-2.0 to +3.0); CO2 Tension 32.5 mmHg (35.0-45.0); Calcium, Ionized (arterial) 1.12 mmol/L (1.12-1.30); Carboxyhemoglobin (COHb) 0.6 gm% (0.0-3.0); Hemoglobin (Hb) 12.9 g/dL (14.0-18.0); Potassium - ABG Lab 4.14 mmol/L (3.70-5.30); pH, Arterial 7.37 (7.35-7.45)
[2020-03-08 07:47] LABS: O2 Tension (PaO2), arterial 55.3 mmHg (80.0-100.0)
[2020-03-08 07:48] LABS: ALV-art Gradient 260.575 (0-20); Puncture Site LRA
--- NOTE | 2020-03-08 08:02 | RAD ---
EXAM: Single view of the chest HISTORY: Ventilated patient with respiratory failure COMPARISON: 03/07/2020 FINDINGS: Single view of the chest shows an enlarged but stable cardiomediastinal silhouette. The pa tient is status post sternotomy. There are stable multifocal opacities in the lungs. The lines and tubes are unchanged in position. The bones are unremarkable IMPRESSION: Stable exam
[2020-03-08 08:15] LABS: INR-International Normal Ratio 1.1; Prothrombin Time 14.3 sec (12.0-14.7)
[2020-03-08] MEDS: Aspirin 81 mg Enteric Coated Tablet PO SCH (08:45)
[2020-03-08] MEDS: Cholecalciferol 1,000 UNITS (25 MCG) TAB PO SCH (08:45)
[2020-03-08] MEDS: Colchicine 0.6 MG TAB PO SCH (08:45)
[2020-03-08] MEDS: Famotidine/PF 20 mg/2ml Vial SLOW IVP SCH (08:45)
[2020-03-08] MEDS: Cefepime 2 GM in Sodium Chloride 0.9% 100 ML IVPB SCH ×2 (08:45→20:23)
[2020-03-08] MEDS: Ezetimibe 10 MG TAB PO SCH (08:45)
[2020-03-08] MEDS: Allopurinol 300 MG TAB PO SCH (08:45)
[2020-03-08] MEDS: Insulin Glargine 10 UNITS in Pre-Filled Syringe 1 EACH SC SCH (09:00)
[2020-03-08] MEDS: Sodium Chloride 0.45% 1,000 ML IV SCH ×2 (10:05→20:26)
--- NOTE | 2020-03-08 12:16 | PRG ---
DATE OF SERVICE: 03/08/2020 SUBJECTIVE: This morning, x-ray shows significant cardiomegaly. He is intubated in the vent. There may be some cephalization. His I's and O's are positive. OBJECTIVE: VITAL SIGNS: Saturations are 90%, respiratory rate 18, blood pressure . CHEST: No wheezing. No crackles. CARDIAC: Normal S1 and S2. No gallops. ABDOMEN: No masses. LABORATORY DATA: His INR was 7 yesterday with one dose of vitamin K back to normal. PO2 is 53, pCO2 is 32.37. Lytes are normal. Creatinine is 2, BUN is 66. C-reactive protein is 473. ASSESSMENT: Respiratory failure, positive pneumonia, prolonged PT and INR, much improved leukocytosis. Continue Maxipime, doxycycline, steroids, still not weanable. We will follow. One-half hour of critical care time. Job ID: [id number]
--- NOTE | 2020-03-08 13:22 | PRG ---
DATE OF SERVICE: 03/08/2020 SUBJECTIVE: The patient is on COVID isolation. OBJECTIVE: VITAL SIGNS: Temperature 98.5, pulse 89, respiratory rate 18, blood pressure 109/70. LABORATORY DATA: Sodium 146, potassium 4.3, BUN is 66 from 74, creatinine is 2.5 from 2.7. ASSESSMENT AND PLAN: 1. Acute kidney injury on chronic kidney disease, stage 3. Continue hydration. 2. Hypernatremia. We will change to half NS. 3. Acidosis, chronic. 4. History of hypertension. 5. Type 2 diabetes. 6. Anemia of chronic disease. 7. COVID-19 pneumonia. The patient is on isolation. We will change IV fluids to half NS. Job ID: [id number]
[2020-03-08] MEDS: Lorazepam 2 MG/ML VIAL SLOW IVP PRN (13:37)
[2020-03-08] MEDS: Norepinephrine 8 MG/0.9% NS 250 ML IVPB PRN (13:39)
[2020-03-08] MEDS: Enoxaparin Sodium 120 MG/0.8 ML SYRINGE SC SCH ×2 (13:55→20:26)
[2020-03-08] MEDS ORDERED: Furosemide 20 MG/2 ML VIAL SLOW IVP SCH (15:00)
[2020-03-08] MEDS: Atorvastatin Calcium 40 MG TAB PO SCH (20:23)
[2020-03-09] MEDS: fentaNYL Citrate/PF 2,000 MCG in Sodium Chloride 0.9% 60 ML IV SCH ×2 (00:06→20:33)
[2020-03-09] MEDS: HumaLOG 300 UNITS/3 ML VIAL SC PRN ×6 (00:06→23:54)
[2020-03-09 04:40] LABS: Anion Gap 14 mmol/L (10-20); BUN (Urea Nitrogen) 71 mg/dL (8.4-25.7); Calc. Creatinine Clearance 52 mL/min (70-130); Calcium 6.9 mg/dL (7.8-10.44); Carbon Dioxide 21 mmol/L (22-29); Chloride 119 mmol/L (98-107); Estimated GFR-MDRD 34; Glucose 186 mg/dL (70-105); Potassium 4.1 mmol/L (3.5-5.1); Sodium 150 mmol/L (136-145)
[2020-03-09 05:09] LABS: Hemoglobin 11.7 g/dL (14.0-18.0); Mean Corpuscular HGB CONC 28.3 g/dL (32.0-36.0); Mean Corpuscular Hemoglobin 22.2 pg (27.0-31.0); Mean Corpuscular Volume 78.6 fL (78.0-98.0); Platelet Count 283 thou/uL (130-400); RBC Distribution Width 22.9 % (11.5-14.5); Red Blood Cell (RBC) Count 5.28 mill/uL (4.70-6.10); White Blood Cell (WBC) Count 22.4 thou/uL (4.8-10.8)
[2020-03-09 05:16] LABS: Anisocytosis MODERATE=16-30 cells (100X) (0-5/hpf); Band 16 % (5-11); Burr Cells SLIGHT = 2-5 cells (100X) (0-1/hpf); Lymphocytes 3 % (21-51); MDiff Complete? YES; Metamyelocyte 1 % (0-0); Monocytes 3 % (0-10); Myelocyte 1 % (0-0); Neutrophil 76 % (42-75); Ovalocytes SLIGHT = 2-5 cells (100X) (0-1/hpf); Platelet Morphology Comment Appears Adequate; Polychromasia SLIGHT = 2-3 cells (100X) (0-2/hpf)
[2020-03-09] MEDS: methylPREDNISolone Sod Succ 40 MG VIAL IVP SCH ×4 (05:19→23:54)
[2020-03-09] MEDS: Sodium Chloride 0.45% 1,000 ML IV SCH (05:19)
[2020-03-09] MEDS: Propofol 1,000 MG/100 ML VIAL IV PRN ×4 (05:19→20:36)
[2020-03-09 08:23] LABS: Actual Bicarbonate (HCO3a) 18.1 mEq/L (22-28); Base Excess (BEa) -6.3 mEq/L (-2.0 to +3.0); CO2 Tension 32.4 mmHg (35.0-45.0); Calcium, Ionized (arterial) 0.98 mmol/L (1.12-1.30); Carboxyhemoglobin (COHb) 0.5 gm% (0.0-3.0); Hemoglobin (Hb) 12.3 g/dL (14.0-18.0); Potassium - ABG Lab 4.05 mmol/L (3.70-5.30); pH, Arterial 7.37 (7.35-7.45)
[2020-03-09 08:35] LABS: O2 Tension (PaO2), arterial 59.9 mmHg (80.0-100.0); Puncture Site LRA
--- NOTE | 2020-03-09 08:42 | PDOC.FM ---
- Subjective Subjective: Intubated and sedated. - Objective MAR Reviewed: Yes Vital Signs & Weight: Vital Signs (12 hours) Temp Resp Pulse Ox 03/09/20 08:00 98.1 F 18 94 L 03/09/20 06:00 18 03/09/20 04:00 98.3 F 18 03/09/20 02:00 18 03/09/20 00:00 97.8 F 18 03/08/20 22:00 18 03/08/20 21:00 97.9 F Weight Admit Weight 102.603 kg Weight 102.2 kg Most Recent Monitor Data Heart Rate from ECG 74 NIBP 112/75 NIBP BP-Mean 87 Respiration from ECG 18 SpO2 94 I&O: 03/08/20 03/09/20 03/10/20 06:59 06:59 06:59 Intake Total 4288 4179 60 Output Total 1775 1900 170 Balance 2513 2279 -110 Result Diagrams: 03/09/20 03:40 03/09/20 03:40 Phys Exam - Physical Examination Constitutional: NAD HEENT: PERRLA, moist MMs Neck: no JVD Respiratory: no wheezing, no rales, no rhonchi, clear to auscultation bilateral Cardiovascular: RRR, no significant murmur Gastrointestinal: soft Musculoskeletal: edema present Non-pitting, diffuse edema Skin: no rash, normal turgor Dx/Plan (1) Pneumonia due to COVID-19 virus Code(s): U07.1 - COVID-19; J12.89 - OTHER VIRAL PNEUMONIA Status: Acute (2) DM2 (diabetes mellitus, type 2) Status: Chronic Qualifiers: Diabetes mellitus long term care social worker insulin use: without half-way use Diabetes mellitus complication status: with kidney complications Diabetes mellitus complication detail: with chronic kidney disease Chronic kidney disease stage : stage 3 (moderate) Qualified Code(s): E11.22 - Type 2 diabetes mellitus with diabetic chronic kidney disease; N18.3 - Chronic kidney disease, stage 3 ( moderate) (3) Gout Code(s): M10.9 - GOUT, UNSPECIFIED Status: Chronic (4) HLD (hyperlipidemia) Code(s): E78.5 - HYPERLIPIDEMIA, UNSPECIFIED Status: Chronic (5) HTN (hypertension) Code(s): I10 - ESSENTIAL (PRIMARY) HYPERTENSION Status: Chronic Qualifiers: Hypertension type: essential hypertension Qualified Code(s): I10 - Essential (primary) hypertension (6) Osteoarthritis Code(s): M19.90 - UNSPECIFIED OSTEOARTHRITIS, UNSPECIFIED SITE Status: Chronic - Plan Plan: Sepsis 2/2 COVID-19 Pnemonia likely vs bacterial pneumonia -tested positive on 02/24, symptoms since approx 02/23 -Cefepime (03/04) & Doxycycline IV (03/05) for coverage of bacterial superimposed infection. -s/p convalescent plasma 03/05. Outside the window and does not meet criteria for remdesivir, does not meet criteria for IL-6 inhibitor d/t lack of cytokine storm. -Continue steroids -Intubated 03/05/2020. Central line placed 03/05/20. 2/2 worsening respiratory status. -Will initiate therapeutic lovenox for COVID anticoagulation. Hypotension - On levophed Hypernatremia - On 1/2NS. - Increase free water flushes per OG tube. Acute kidney injury, CKD 3 -will hold nephrotoxic medications -Nephrology consulted, Dr. Trevino most recently saw the patient outpatient. - Has been net positive I/O status for the past 3 days. Will discuss adding albumin today to improve perfusion and increase oncotic pressure, as he is becoming more edematous. T2DM -Hold home medications and cover with lantus/SSI -Will increase lantus dose today. Hypertension -continue home metoprolol -will hold lisinopril 2/2 LAURA Gout -continue colchicine, allopurinol Hyperlipidemia -continue home atorvastatin Hx of AV valve replacement -on warfarin at home, holding. Will cover now with Lovenox as his INR is no longer supratherapeutic. -check PT, PTT, INR daily. Code: Full Prophylaxis: Th Lovenox Fluids: 1/2NS @ 75 Diet: tube feeds Disposition: Inpatient, guarded, CCU. PCP: Dr. Kohli Addendum - Attending - Attending Attestation Date/Time: 03/09/20 1999 I personally evaluated the patient and discussed the management with Dr. Denny. I agree with the History, Examination, Assessment and Plan documented above with any addition or exceptions noted below. Continue COVID treatment. Anticoagulation for COVID and Aortic valve replacement. Free water repletion. Monitor renal function.
[2020-03-09] MEDS ORDERED: Insulin Glargine 15 UNITS in Pre-Filled Syringe 1 EACH SC SCH (09:00)
[2020-03-09] MEDS: Cefepime 2 GM in Sodium Chloride 0.9% 100 ML IVPB SCH ×2 (09:10→20:34)
[2020-03-09] MEDS: Enoxaparin Sodium 120 MG/0.8 ML SYRINGE SC SCH ×2 (09:12→20:35)
[2020-03-09] MEDS: Colchicine 0.6 MG TAB PO SCH (09:12)
[2020-03-09] MEDS: Famotidine/PF 20 mg/2ml Vial SLOW IVP SCH (09:13)
[2020-03-09] MEDS: Cholecalciferol 1,000 UNITS (25 MCG) TAB PO SCH (09:14)
[2020-03-09] MEDS: Allopurinol 300 MG TAB PO SCH (09:14)
[2020-03-09] MEDS: Aspirin 81 mg Enteric Coated Tablet PO SCH (09:14)
[2020-03-09] MEDS: Ezetimibe 10 MG TAB PO SCH (09:15)
[2020-03-09] MEDS: Lorazepam 2 MG/ML VIAL SLOW IVP PRN ×2 (09:20→17:34)
[2020-03-09] MEDS: Dextrose 5% in Water 1,000 ML IV SCH ×2 (09:21→20:35)
--- NOTE | 2020-03-09 10:28 | PRG ---
DATE OF SERVICE: 03/09/2020 SUBJECTIVE: Fei Teague is a 54-year-old gentleman, remains intubated on the vent. X-ray still shows bilateral infiltrates. OBJECTIVE: VITAL SIGNS: Temperature 98, respiratory rate 18, saturations are 95% on 50%, PEEP of 10, blood pressure 112/75. CHEST: Crackles. No wheezing. CARDIAC: Normal S1 and S2. No gallops. ABDOMEN: No masses. LABORATORY DATA: White count 20,000, slight left shift, 76 segs, 16 bands. PO2 of 59, pCO2 of 37, rate of 18, 50%, PEEP of 10. Sodium 151, BUN and creatinine are elevated suggesting maybe some prerenal component. BNP is 34. ASSESSMENT: Respiratory failure, azotemia, prerenal. I agree with IV fluids. Continue steroids, neb treatment, empiric antibiotics. Still not weanable. We will follow. One-half hour of critical care time. Job ID: [id number]
--- NOTE | 2020-03-09 11:52 | PRG ---
DATE OF SERVICE: 03/09/2020 SUBJECTIVE: The patient is on COVID isolation. OBJECTIVE: VITAL SIGNS: Temperature 98.1, pulse 85, respiratory rate 16, and blood pressure 107/80. LABORATORY DATA: Sodium 150, potassium 4.1, chloride 119, bicarb 21, BUN is 71, and creatinine is 2.4. ASSESSMENT AND PLAN: 1. Acute kidney injury on chronic kidney disease, stage 3. Renal function is better. We will continue hydration. 2. Hypernatremia. Agree with changing to D5W . 3. History of hypertension. 4. COVID-19 pneumonia. 5. Edema. Cautious IV fluids. Monitor respiratory status closely and agree with D5W for now and adjust the insulin. Job ID: [id number]
[2020-03-09] MEDS: Atorvastatin Calcium 40 MG TAB PO SCH (20:34)
[2020-03-10] MEDS: Propofol 1,000 MG/100 ML VIAL IV PRN ×3 (05:00→17:10)
[2020-03-10] MEDS: methylPREDNISolone Sod Succ 40 MG VIAL IVP SCH ×2 (05:01→20:43)
[2020-03-10] MEDS: HumaLOG 300 UNITS/3 ML VIAL SC PRN ×4 (05:01→22:13)
[2020-03-10 06:18] LABS: Anion Gap 14 mmol/L (10-20); BUN (Urea Nitrogen) 79 mg/dL (8.4-25.7); Calc. Creatinine Clearance 50 mL/min (70-130); Calcium 6.4 mg/dL (7.8-10.44); Carbon Dioxide 19 mmol/L (22-29); Chloride 115 mmol/L (98-107); Estimated GFR-MDRD 33; Glucose 243 mg/dL (70-105); Potassium 4.4 mmol/L (3.5-5.1); Sodium 144 mmol/L (136-145)
[2020-03-10 06:19] LABS: Anisocytosis SLIGHT = 6-15 cells (100X) (0-5/hpf); Band 11 % (5-11); Hemoglobin 11.7 g/dL (14.0-18.0); Hypochromia SLIGHT = 6-15 cells (100X) (0-5/hpf); Lymphocytes 6 % (21-51); MDiff Complete? YES; Mean Corpuscular HGB CONC 27.9 g/dL (32.0-36.0); Mean Corpuscular Hemoglobin 22.2 pg (27.0-31.0); Mean Corpuscular Volume 79.5 fL (78.0-98.0); Mean Platelet Volume 10.1 fL (7.4-10.4); Monocytes 2 % (0-10); Neutrophil 81 % (42-75); Nucleated RBC 3 % (0); Platelet Count 220 thou/uL (130-400); Platelet Morphology Comment Appears Adequate; RBC Distribution Width 23.8 % (11.5-14.5); Red Blood Cell (RBC) Count 5.28 mill/uL (4.70-6.10); White Blood Cell (WBC) Count 24.4 thou/uL (4.8-10.8)
--- NOTE | 2020-03-10 07:18 | PDOC.FM ---
- Subjective Subjective: intubated and sedated. When off sedation, he coughs and shakes hands. He is aware but does not follow commands. - Objective MAR Reviewed: Yes Vital Signs & Weight: Vital Signs (12 hours) Temp Resp Pulse Ox 03/10/20 06:00 16 03/10/20 05:00 98.4 F 03/10/20 04:00 16 03/10/20 02:00 16 03/10/20 00:00 98.9 F 16 03/09/20 21:59 16 03/09/20 21:00 98.5 F 03/09/20 20:00 16 97 Weight Admit Weight 102.603 kg Weight 103.1 kg Most Recent Monitor Data Heart Rate from ECG 91 NIBP 116/85 NIBP BP-Mean 95 Respiration from ECG 16 SpO2 98 I&O: 03/09/20 03/10/20 03/11/20 06:59 06:59 06:59 Intake Total 4179 4170.2 Output Total 1900 1720 50 Balance 2279 2450.2 -50 Result Diagrams: 03/10/20 05:10 03/10/20 05:10 Phys Exam - Physical Examination Constitutional: NAD HEENT: PERRLA, moist MMs Edema of lower lip Respiratory: no wheezing, no rales, no rhonchi, clear to auscultation bilateral Cardiovascular: RRR, no significant murmur Gastrointestinal: soft hypoactive bowel sounds Musculoskeletal: edema present Non-pitting edema Skin: no rash Dx/Plan (1) Pneumonia due to COVID-19 virus Code(s): U07.1 - COVID-19; J12.89 - OTHER VIRAL PNEUMONIA Status: Acute (2) DM2 (diabetes mellitus, type 2) Status: Chronic Qualifiers: Diabetes mellitus keno terminal operator insulin use: without keno terminal operator use Diabetes mellitus complication status: with kidney complications Diabetes mellitus complication detail: with chronic kidney disease Chronic kidney disease stage : stage 3 (moderate) Qualified Code(s): E11.22 - Type 2 diabetes mellitus with diabetic chronic kidney disease; N18.3 - Chronic kidney disease, stage 3 ( moderate) (3) Gout Code(s): M10.9 - GOUT, UNSPECIFIED Status: Chronic (4) HLD (hyperlipidemia) Code(s): E78.5 - HYPERLIPIDEMIA, UNSPECIFIED Status: Chronic (5) HTN (hypertension) Code(s): I10 - ESSENTIAL (PRIMARY) HYPERTENSION Status: Chronic Qualifiers: Hypertension type: essential hypertension Qualified Code(s): I10 - Essential (primary) hypertension (6) Osteoarthritis Code(s): M19.90 - UNSPECIFIED OSTEOARTHRITIS, UNSPECIFIED SITE Status: Chronic - Plan Plan: Sepsis 2/2 COVID-19 Pnemonia likely vs bacterial pneumonia -tested positive on 02/24, symptoms since approx 02/23 -Cefepime (03/04) & Doxycycline IV (03/05) for coverage of bacterial superimposed infection. -s/p convalescent plasma 03/05. Outside the window and does not meet criteria for remdesivir, does not meet criteria for IL-6 inhibitor d/t lack of cytokine storm. -Continue steroids -Intubated 03/05/2020. Central line placed 03/05/20. 2/2 worsening respiratory status. -On therapeutic lovenox for COVID anticoagulation. -Continue weaning ventilator. Hypotension, resolved. -off levophed Hypernatremia - On D5W @ 75. Will decrease to 50. - Increase free water flushes per OG tube. Acute kidney injury, CKD 3 -will hold nephrotoxic medications -Nephrology consulted, Dr. Trevino most recently saw the patient outpatient. -will closely monitor fluid status as he continues to become more edematous. T2DM -On Lantus 20u daily. -Aggressive sliding scale. -Monitor blood sugars. Hypertension -continue home metoprolol -will hold lisinopril 2/2 LAURA Gout -continue colchicine, allopurinol Hyperlipidemia -continue home atorvastatin Hx of AV valve replacement -on warfarin at home, holding. Will cover now with Lovenox as his INR is no longer supratherapeutic. -check PT, PTT, INR daily. Code: Full Prophylaxis: Th Lovenox Fluids: D5w @ 50 Diet: tube feeds Disposition: Inpatient, guarded, CCU. PCP: Dr. Kohli Addendum - Attending - Attending Attestation Date/Time: 03/10/20 1202 I personally evaluated the patient and discussed the management with Dr. Denny. I agree with the History, Examination, Assessment and Plan documented above with any addition or exceptions noted below. Patient overall stable. Continue treatment for COVID pneumonia. Pulm on board. Renal function stable. Sodium level improved. Glycemic control.
[2020-03-10 07:58] LABS: Actual Bicarbonate (HCO3a) 16.3 mEq/L (22-28); Base Excess (BEa) -9.7 mEq/L (-2.0 to +3.0); Calcium, Ionized (arterial) 0.96 mmol/L (1.12-1.30); Carboxyhemoglobin (COHb) 1.3 gm% (0.0-3.0); Hemoglobin (Hb) 13.2 g/dL (14.0-18.0); O2 Tension (PaO2), arterial 63.8 mmHg (80.0-100.0); Potassium - ABG Lab 4.11 mmol/L (3.70-5.30); pH, Arterial 7.27 (7.35-7.45)
[2020-03-10 07:59] LABS: Puncture Site LRA
[2020-03-10] MEDS: Aspirin 81 mg Enteric Coated Tablet PO SCH (08:39)
[2020-03-10] MEDS: Enoxaparin Sodium 120 MG/0.8 ML SYRINGE SC SCH (08:39)
[2020-03-10] MEDS: Famotidine/PF 20 mg/2ml Vial SLOW IVP SCH (08:39)
[2020-03-10] MEDS: Ezetimibe 10 MG TAB PO SCH (08:40)
[2020-03-10] MEDS: Colchicine 0.6 MG TAB PO SCH (08:40)
[2020-03-10] MEDS: Cholecalciferol 1,000 UNITS (25 MCG) TAB PO SCH (08:40)
[2020-03-10] MEDS: Allopurinol 300 MG TAB PO SCH (08:41)
[2020-03-10] MEDS: Insulin Glargine 20 UNITS in Pre-Filled Syringe 1 EACH SC SCH (08:43)
[2020-03-10] MEDS: Cefepime 2 GM in Sodium Chloride 0.9% 100 ML IVPB SCH (08:47)
[2020-03-10] MEDS ORDERED: Cefepime 2 GM in Sodium Chloride 0.9% 100 ML IVPB SCH (09:00)
--- NOTE | 2020-03-10 10:28 | PRG ---
DATE OF SERVICE: 03/10/2020 SUBJECTIVE: This is a 54-year-old gentleman, who is intubated in the vent, sedated on Diprivan and fentanyl. OBJECTIVE: VITAL SIGNS: Pulse 91, 50% FiO2, 8 of PEEP, sats are 98%, blood pressure 118/65. His I's and O's have been consistently positive. CHEST: No wheezing. No crackles. CARDIAC: Normal S1, S2. No gallops. ABDOMEN: No masses. LABORATORY DATA: White count 24,000, left shift. PO2 of 63, pCO2 BUN and creatinine of 79 and 2.45. Increasing azotemia coronavirus positive pneumonia, acute respiratory distress syndrome. Adjust antibiotics for worsening renal failure. Minimize any nephrotoxic medication. I am going to start cutting back on his steroids. Continue nutrition, PT. Needs low-dose Reglan as per the nurses. One-half hour of critical care time. Job ID: [id number]
[2020-03-10] MEDS: Dextrose 5% in Water 1,000 ML IV SCH (11:42)
--- NOTE | 2020-03-10 12:10 | PRG ---
DATE OF SERVICE: SUBJECTIVE: The patient is on COVID isolation. OBJECTIVE: VITAL SIGNS: Temperature 98.4, pulse 88, respiratory rate 18, blood pressure 119/87. LABORATORY DATA: Potassium 4.4, BUN is 79, creatinine is 2.4. ASSESSMENT AND PLAN: 1. Acute kidney injury on chronic kidney disease, stage 3. Renal function is stable. Creatinine is stable. BUN rising. 2. Azotemia. Agree with reducing steroids. 3. Hypernatremia with hyperchloremia, better. 4. Edema. 5. History of hypertension. 6. Hyperglycemia. 7. Hypocalcemia. Recommend calcium supplements. Avoid nephrotoxins and renally dose the medications. We will follow. IV fluids if tolerated. Job ID: [id number]
[2020-03-10] MEDS: Metoclopramide HCl 10 MG/2 ML VIAL IVP SCH ×2 (13:41→20:44)
[2020-03-10] MEDS: fentaNYL Citrate/PF 2,000 MCG in Sodium Chloride 0.9% 60 ML IV SCH (14:30)
[2020-03-10 14:35] LABS: INR-International Normal Ratio 1.3; Prothrombin Time 16.5 sec (12.0-14.7)
[2020-03-10] MEDS: Lorazepam 2 MG/ML VIAL SLOW IVP PRN (17:10)
[2020-03-10] MEDS: Enoxaparin Sodium 100 MG/ML SYRINGE SC SCH (20:41)
[2020-03-10] MEDS: Cefepime 1 GM in Sodium Chloride 0.9% 100 ML IVPB SCH (20:41)
[2020-03-10] MEDS: Atorvastatin Calcium 40 MG TAB PO SCH (20:41)
[2020-03-10] MEDS ORDERED: Enoxaparin Sodium 40 MG/0.4 ML SYRINGE SC SCH (21:00)
[2020-03-11] MEDS: Propofol 1,000 MG/100 ML VIAL IV PRN ×4 (00:15→19:03)
[2020-03-11] MEDS: HumaLOG 300 UNITS/3 ML VIAL SC PRN ×5 (00:39→20:43)
[2020-03-11 04:56] LABS: Anion Gap 15 mmol/L (10-20); BUN (Urea Nitrogen) 95 mg/dL (8.4-25.7); Calc. Creatinine Clearance 40 mL/min (70-130); Calcium 6.5 mg/dL (7.8-10.44); Carbon Dioxide 18 mmol/L (22-29); Chloride 114 mmol/L (98-107); Estimated GFR-MDRD 26; Glucose 229 mg/dL (70-105); Potassium 4.6 mmol/L (3.5-5.1); Sodium 142 mmol/L (136-145)
[2020-03-11 04:57] LABS: Band 25 % (5-11); Hemoglobin 11.4 g/dL (14.0-18.0); MDiff Complete? YES; Mean Corpuscular HGB CONC 28.7 g/dL (32.0-36.0); Mean Corpuscular Hemoglobin 23.1 pg (27.0-31.0); Mean Corpuscular Volume 80.5 fL (78.0-98.0); Monocytes 9 % (0-10); Neutrophil 66 % (42-75); Nucleated RBC 7 % (0); Platelet Count 211 thou/uL (130-400); Platelet Morphology Comment Appears Adequate; RBC Distribution Width 22.5 % (11.5-14.5); Red Blood Cell (RBC) Count 4.94 mill/uL (4.70-6.10)
[2020-03-11] MEDS: Metoclopramide HCl 10 MG/2 ML VIAL IVP SCH ×3 (05:47→20:07)
--- NOTE | 2020-03-11 06:41 | PDOC.FM ---
- Subjective Subjective: Intubated and sedated. - Objective MAR Reviewed: Yes Vital Signs & Weight: Vital Signs (12 hours) Temp Pulse Resp BP 03/11/20 06:00 16 03/11/20 04:00 98.3 F 16 03/11/20 03:36 99 03/11/20 02:00 16 03/11/20 01:25 16 03/11/20 00:00 98.1 F 16 03/10/20 23:00 99 110/85 03/10/20 22:00 16 03/10/20 20:00 98.6 F 16 03/10/20 19:00 99 Weight Admit Weight 102.603 kg Weight 103.5 kg Most Recent Monitor Data Heart Rate from ECG 104 NIBP 102/72 NIBP BP-Mean 82 Respiration from ECG 16 SpO2 97 I&O: 03/09/20 03/10/20 03/11/20 06:59 06:59 06:59 Intake Total 4179 4170.2 3196.9 Output Total 1900 1720 1630 Balance 2279 2450.2 1566.9 Result Diagrams: 03/11/20 04:00 03/11/20 04:00 Phys Exam - Physical Examination Constitutional: NAD HEENT: moist MMs Lip edema Neck: supple Respiratory: no wheezing, clear to auscultation bilateral Cardiovascular: RRR Gastrointestinal: non-tender Firm, mildly distended Musculoskeletal: pulses present, edema present Skin: no rash, normal turgor Dx/Plan (1) Pneumonia due to COVID-19 virus Code(s): U07.1 - COVID-19; J12.89 - OTHER VIRAL PNEUMONIA Status: Acute (2) DM2 (diabetes mellitus, type 2) Status: Chronic Qualifiers: Diabetes mellitus skilled nursing insulin use: without skilled nursing use Diabetes mellitus complication status: with kidney complications Diabetes mellitus complication detail: with chronic kidney disease Chronic kidney disease stage : stage 3 (moderate) Qualified Code(s): E11.22 - Type 2 diabetes mellitus with diabetic chronic kidney disease; N18.3 - Chronic kidney disease, stage 3 ( moderate) (3) Gout Code(s): M10.9 - GOUT, UNSPECIFIED Status: Chronic (4) HLD (hyperlipidemia) Code(s): E78.5 - HYPERLIPIDEMIA, UNSPECIFIED Status: Chronic (5) HTN (hypertension) Code(s): I10 - ESSENTIAL (PRIMARY) HYPERTENSION Status: Chronic Qualifiers: Hypertension type: essential hypertension Qualified Code(s): I10 - Essential (primary) hypertension (6) Osteoarthritis Code(s): M19.90 - UNSPECIFIED OSTEOARTHRITIS, UNSPECIFIED SITE Status: Chronic - Plan Plan: Sepsis 2/2 COVID-19 Pnemonia likely vs bacterial pneumonia -tested positive on 02/24, symptoms since approx 02/23 -Cefepime (03/04) & Doxycycline IV (03/05) for coverage of bacterial superimposed infection. -s/p convalescent plasma 03/05. Outside the window and does not meet criteria for remdesivir, does not meet criteria for IL-6 inhibitor d/t lack of cytokine storm. -Continue steroids -Intubated 03/05/2020. Central line placed 03/05/20. 2/2 worsening respiratory status. -On therapeutic lovenox for COVID anticoagulation. -Continue weaning ventilator. Hypotension, resolved. -off levophed Hypernatremia - On D5W @ 50. - Increase free water flushes per OG tube. Acute kidney injury, CKD 3 -will hold nephrotoxic medications -Nephrology consulted, Dr. Trevino most recently saw the patient outpatient. -will closely monitor fluid status as he continues to become more edematous. T2DM -On Lantus 20u daily. -Aggressive sliding scale. -Monitor blood sugars. Hypertension -continue home metoprolol -will hold lisinopril 2/2 LAURA Gout -continue colchicine, allopurinol Hyperlipidemia -continue home atorvastatin Hx of AV valve replacement -on warfarin at home, holding. Will cover now with Lovenox as his INR is no longer supratherapeutic. -check PT, PTT, INR daily. Code: Full Prophylaxis: Lovenox Fluids: D5w @ 50 Diet: tube feeds Disposition: Inpatient, guarded, CCU. PCP: Dr. Kohli Addendum - Attending - Attending Attestation Date/Time: 03/11/20 4938 I personally evaluated the patient and discussed the management with Dr. Denny. I agree with the History, Examination, Assessment and Plan documented above with any addition or exceptions noted below. Patient overall stable. Continue treatment with vent and steroids for COVID19. He has completed all other therapies for which he is a candidate. Pulm on board. Renal function overall stable. Continue to monitor volume status closely and await improvement in pulm function. Inflammatory markers stable.
[2020-03-11 07:31] LABS: Actual Bicarbonate (HCO3a) 17.2 mEq/L (22-28); Base Excess (BEa) -10.3 mEq/L (-2.0 to +3.0); CO2 Tension 43.5 mmHg (35.0-45.0); Calcium, Ionized (arterial) 0.97 mmol/L (1.12-1.30); Carboxyhemoglobin (COHb) 1.1 gm% (0.0-3.0); Hemoglobin (Hb) 13.5 g/dL (14.0-18.0); O2 Tension (PaO2), arterial 62.9 mmHg (80.0-100.0); Potassium - ABG Lab 4.36 mmol/L (3.70-5.30)
[2020-03-11] MEDS: methylPREDNISolone Sod Succ 40 MG VIAL IVP SCH ×2 (07:46→20:07)
[2020-03-11] MEDS: Colchicine 0.6 MG TAB PO SCH (07:47)
[2020-03-11] MEDS: Cholecalciferol 1,000 UNITS (25 MCG) TAB PO SCH (07:47)
[2020-03-11] MEDS: Allopurinol 300 MG TAB PO SCH (07:47)
[2020-03-11] MEDS: Aspirin 81 mg Enteric Coated Tablet PO SCH (07:47)
[2020-03-11] MEDS: Cefepime 1 GM in Sodium Chloride 0.9% 100 ML IVPB SCH ×2 (07:47→20:04)
[2020-03-11] MEDS: Famotidine/PF 20 mg/2ml Vial SLOW IVP SCH (07:47)
[2020-03-11] MEDS: Ezetimibe 10 MG TAB PO SCH (07:47)
[2020-03-11] MEDS: Enoxaparin Sodium 100 MG/ML SYRINGE SC SCH ×2 (07:48→20:07)
[2020-03-11 08:05] LABS: pH, Arterial 7.21 (7.35-7.45)
[2020-03-11 08:06] LABS: Puncture Site RRAD
[2020-03-11 08:07] LABS: ALV-art Gradient 239.225 (0-20)
[2020-03-11 08:09] LABS: INR-International Normal Ratio 1.4; Prothrombin Time 16.7 sec (12.0-14.7)
[2020-03-11] MEDS: Insulin Glargine 10 UNITS in Pre-Filled Syringe 1 EACH SC SCH (08:11)
[2020-03-11] MEDS: Insulin Glargine 20 UNITS in Pre-Filled Syringe 1 EACH SC SCH (08:31)
--- NOTE | 2020-03-11 10:01 | PRG ---
DATE OF SERVICE: 03/11/2020 SUBJECTIVE: Fei Teague remains in the ICU, intubated in the vent. OBJECTIVE: VITAL SIGNS: Temperature 98, respirations 16, blood pressure 101/82, sats 98%. He is on 8 of PEEP and 50% FiO2. CHEST: No wheezing or crackles. CARDIAC: Normal S1, S2. No gallops. ABDOMEN: No masses. LABORATORY DATA: White count 49600, slightly increased big left shift. PO2 is 82, pCO2 of , pH 7.21, BUN is 95, creatinine 3.02. ASSESSMENT: Respiratory failure, renal failure, increasing leukocytosis. He is on Maxipime adjusted for his renal failure. I am concerned about the worsening leukocytosis whether he has got additional community-acquired and hospital-acquired pneumonia on top of coronavirus. Continue hydration as per Nephrology. Supportive care is still not weanable and white count is further elevated. May consider adding anti-Staph antibiotic. One-half hour of critical time. Job ID: [id number]
[2020-03-11] MEDS ORDERED: Senokot S 8.6-50 MG TAB PO PRN (10:05)
[2020-03-11] MEDS ORDERED: Polyethylene Glycol 3350 17 GM Packet PER TUBE SCH (11:00)
[2020-03-11] MEDS: Dextrose 5% in Water 1,000 ML IV SCH (11:05)
[2020-03-11] MEDS: Ergocalciferol 1.25 MG(50,000 UNITS) CAP PO SCH (11:41)
[2020-03-11] MEDS: Lorazepam 2 MG/ML VIAL SLOW IVP PRN ×2 (13:36→23:45)
[2020-03-11] MEDS: Calcium Carbonate 500 MG ChewTAB PO SCH ×2 (13:36→20:06)
--- NOTE | 2020-03-11 14:13 | PRG ---
DATE OF SERVICE: 03/11/2020 SUBJECTIVE: Patient on COVID isolation. OBJECTIVE: VITAL SIGNS: Temperature 98.6, pulse 95, respiratory rate 21, blood pressure 101/82. LABORATORY DATA: WBC is 29.0. Potassium 4.6, BUN is 95, creatinine is 3.02. ASSESSMENT AND PLAN: 1. Acute kidney on chronic kidney stage 3. Creatinine getting worse. BUN getting worse. Leukocytosis also getting worse. I feel worsening sepsis is causing the renal dysfunction. Continue antibiotics and broaden the coverage as indicated. 2. Azotemia, most likely from infection. 3. Edema, better. 4. Anemia 5. Hypertension. 6. Acute hypoxic respiratory failure 7. Hypocalcemia, start on calcium supplements. 8. Continue antibiotics and we will continue D5W at 50 mL/hr. Monitor cardiorespiratory status. Recommend calcium supplements and monitor. Job ID: [id number] MTDD
[2020-03-11] MEDS: Atorvastatin Calcium 40 MG TAB PO SCH (20:06)
[2020-03-12] MEDS: HumaLOG 300 UNITS/3 ML VIAL SC PRN ×6 (00:23→20:55)
[2020-03-12] MEDS: Lorazepam 2 MG/ML VIAL SLOW IVP PRN (04:20)
[2020-03-12] MEDS: Propofol 1,000 MG/100 ML VIAL IV PRN (04:20)
[2020-03-12 04:39] LABS: Anion Gap 16 mmol/L (10-20); BUN (Urea Nitrogen) 124 mg/dL (8.4-25.7); Calc. Creatinine Clearance 27 mL/min (70-130); Calcium 6.4 mg/dL (7.8-10.44); Carbon Dioxide 17 mmol/L (22-29); Chloride 110 mmol/L (98-107); Estimated GFR-MDRD 16; Glucose 249 mg/dL (70-105); Potassium 4.8 mmol/L (3.5-5.1); Sodium 138 mmol/L (136-145)
[2020-03-12 04:45] LABS: Band 23 % (5-11); Hemoglobin 10.1 g/dL (14.0-18.0); Hypochromia SLIGHT = 6-15 cells (100X) (0-5/hpf); Lymphocytes 4 % (21-51); MDiff Complete? YES; Mean Corpuscular Volume 79.3 fL (78.0-98.0); Mean Platelet Volume 13.8 fL (7.4-10.4); Monocytes 7 % (0-10); Neutrophil 66 % (42-75); Nucleated RBC 2 % (0); Platelet Count 177 thou/uL (130-400); Platelet Morphology Comment Appears Adequate; Polychromasia SLIGHT = 2-3 cells (100X) (0-2/hpf); RBC Distribution Width 24.1 % (11.5-14.5); Red Blood Cell (RBC) Count 4.39 mill/uL (4.70-6.10); Target Cells SLIGHT = 2-5 cells (100X) (0-1/hpf); White Blood Cell (WBC) Count 29.4 thou/uL (4.8-10.8)
--- NOTE | 2020-03-12 05:48 | PDOC.FM ---
- Subjective Subjective: Intubated and sedated. - Objective Vital Signs & Weight: Vital Signs (12 hours) Temp Pulse Resp BP 03/12/20 04:00 98.8 F 22 H 03/12/20 02:27 98 104/76 03/12/20 02:00 22 H 03/12/20 01:00 20 03/12/20 00:00 98.7 F 20 03/11/20 22:31 101 H 104/84 03/11/20 22:00 16 03/11/20 21:00 98.6 F 03/11/20 20:00 16 03/11/20 18:53 102 H 104/87 03/11/20 18:00 16 Weight Admit Weight 102.603 kg Weight 103.5 kg Most Recent Monitor Data Heart Rate from ECG 99 NIBP 109/78 NIBP BP-Mean 88 Respiration from ECG 20 SpO2 100 I&O: 03/10/20 03/11/20 03/12/20 06:59 06:59 06:59 Intake Total 4170.2 3196.9 3427.75 Output Total 1720 1630 720 Balance 2450.2 1566.9 2707.75 Result Diagrams: 03/12/20 03:35 03/12/20 03:35 Phys Exam - Physical Examination Constitutional: NAD intubated and sedated HEENT: moist MMs lip edema Neck: supple Respiratory: no wheezing Decreased breath sounds lower lobes Cardiovascular: RRR, no significant murmur Gastrointestinal: soft mildly distended Musculoskeletal: no edema, pulses present intubated and sedated Dx/Plan (1) Sepsis Code(s): A41.9 - SEPSIS, UNSPECIFIED ORGANISM Status: Acute (2) LAURA (acute kidney injury) Code(s): N17.9 - ACUTE KIDNEY FAILURE, UNSPECIFIED Status: Acute (3) Pneumonia due to COVID-19 virus Code(s): U07.1 - COVID-19; J12.89 - OTHER VIRAL PNEUMONIA Status: Acute (4) DM2 (diabetes mellitus, type 2) Status: Chronic Qualifiers: Diabetes mellitus usp insulin use: without usp use Diabetes mellitus complication status: with kidney complications Diabetes mellitus complication detail: with chronic kidney disease Chronic kidney disease stage : stage 3 (moderate) Qualified Code(s): E11.22 - Type 2 diabetes mellitus with diabetic chronic kidney disease; N18.3 - Chronic kidney disease, stage 3 ( moderate) (5) Gout Code(s): M10.9 - GOUT, UNSPECIFIED Status: Chronic (6) HLD (hyperlipidemia) Code(s): E78.5 - HYPERLIPIDEMIA, UNSPECIFIED Status: Chronic (7) HTN (hypertension) Code(s): I10 - ESSENTIAL (PRIMARY) HYPERTENSION Status: Chronic Qualifiers: Hypertension type: essential hypertension Qualified Code(s): I10 - Essential (primary) hypertension - Plan Plan: Patient is a 54M with PMHx of DM2, HTN, gout, HLD, hx of aortic valve replacement, CKD3 admitted for: #Sepsis 2/2 COVID-19 Pnemonia likely vs bacterial pneumonia -tested positive on 02/24, symptoms since approx 02/23 -Cefepime (03/04) & Doxycycline IV (03/05) for coverage of bacterial superimposed infection. -s/p convalescent plasma 03/05. Outside the window and does not meet criteria for remdesivir, does not meet criteria for IL-6 inhibitor d/t lack of cytokine storm. -Continue steroids -Intubated 03/05/2020. Central line placed 03/05/20. 2/2 worsening respiratory status. -On therapeutic lovenox for COVID anticoagulation. -Continue weaning ventilator. -D-dimer improved today, 4.53>3.85 #Hypotension, resolved. -off levophed #Hypernatremia, resolved - On D5W @ 50. - Increase free water flushes per OG tube. #Acute kidney injury, CKD 3 -will hold nephrotoxic medications -Nephrology consulted, Dr. Trevino most recently saw the patient outpatient. -will closely monitor fluid status as he continues to become more edematous. -Dr. Bray consulted, plans to consult gen surg to place a dialysis catheter to begin HD today #T2DM -On Lantus 20u daily > 26u daily. -Aggressive sliding scale. -Monitor blood sugars. #Hypertension -continue home metoprolol -will hold lisinopril 2/2 LAURA #Gout -continue colchicine, allopurinol Hyperlipidemia -continue home atorvastatin Hx of AV valve replacement -on warfarin at home, holding. Will cover with Lovenox as his INR is no longer supratherapeutic. -check PT, PTT, INR daily. Code: Full Prophylaxis: Th Lovenox Fluids: D5w @ 50 Diet: tube feeds Disposition: Inpatient, guarded, CCU. PCP: Dr. Kohli Addendum - Attending - Attending Attestation Date/Time: 03/12/20 5240 I personally evaluated the patient and discussed the management with Dr. Chun I agree with the History, Examination, Assessment and Plan documented above with any addition or exceptions noted below. Acute hypoxic resp failure from COVID19- vent management per pulm Metabolic acidosis from LAURA- dialysis recommended per nephro. catheter placement with surgery. DM- increase insulin Continue ICU care.
[2020-03-12] MEDS: Metoclopramide HCl 10 MG/2 ML VIAL IVP SCH ×3 (05:58→23:15)
[2020-03-12 07:21] LABS: Actual Bicarbonate (HCO3a) 13.2 mEq/L (22-28); Base Excess (BEa) -12.7 mEq/L (-2.0 to +3.0); CO2 Tension 30.3 mmHg (35.0-45.0); Calcium, Ionized (arterial) 0.91 mmol/L (1.12-1.30); Carboxyhemoglobin (COHb) 1.1 gm% (0.0-3.0); Hemoglobin (Hb) 11.5 g/dL (14.0-18.0); O2 Tension (PaO2), arterial 68.3 mmHg (80.0-100.0); Potassium - ABG Lab 4.46 mmol/L (3.70-5.30); pH, Arterial 7.26 (7.35-7.45)
[2020-03-12 07:52] LABS: Puncture Site RRAD
[2020-03-12 07:53] LABS: ALV-art Gradient 250.325 (0-20)
[2020-03-12] MEDS: Cefepime 1 GM in Sodium Chloride 0.9% 100 ML IVPB SCH ×2 (08:16→20:25)
[2020-03-12] MEDS: Enoxaparin Sodium 100 MG/ML SYRINGE SC SCH (08:16)
[2020-03-12] MEDS: methylPREDNISolone Sod Succ 40 MG VIAL IVP SCH ×2 (08:16→20:26)
[2020-03-12] MEDS: Famotidine/PF 20 mg/2ml Vial SLOW IVP SCH (08:16)
[2020-03-12] MEDS ORDERED: Insulin Glargine 26 UNITS in Pre-Filled Syringe 1 EACH SC SCH (09:00)
--- NOTE | 2020-03-12 09:56 | PRG ---
DATE OF SERVICE: 03/12/2020 35 minutes critical care time. SUBJECTIVE: This patient remains intubated, on mechanical ventilation. He does not wake up very easily. OBJECTIVE: VITAL SIGNS: His temperature 98.2, pulse 96, blood pressure 123/90, O2 saturation 97%. 24-hour intake was 3556, output 1485. HEENT: Remarkable for conjunctiva edema and lip edema. He is intubated orally. NECK: No adenopathy or JVD. LUNGS: Clear anteriorly. CARDIOVASCULAR: S1, S2. Regular. ABDOMEN: Soft and nontender. EXTREMITIES: No clubbing, cyanosis, or edema. RECTAL: He has a rectal tube in place. LABORATORY DATA: Sodium 130, potassium 4.8, chloride 110, CO2 of 17, BUN 124, creatinine 4.5, glucose 249. White blood cell count 29.4, hematocrit 34.9, and platelet count 177. D-dimer is 3.85. ASSESSMENT: 1. COVID-19 pneumonia with acute respiratory failure requiring mechanical ventilation. 2. Metabolic acidosis. 3. Acute renal failure. 4. Question of concurrent community-acquired pneumonia. PLAN: 1. I am going to switch him over to a bicarbonate drip for the acidosis. 2. I have increased respiratory rate on ventilator. 3. He remains on cefepime and doxycycline. He is on methylprednisolone for steroid coverage. 4. Overall, his oxygenation is actually fairly good for a patient with COVID infection. His encephalopathy prevents further weaning at this time. Job ID: [id number]
[2020-03-12] MEDS: Allopurinol 300 MG TAB PO SCH (10:29)
[2020-03-12] MEDS: Aspirin 81 mg Enteric Coated Tablet PO SCH (10:29)
[2020-03-12] MEDS: Ezetimibe 10 MG TAB PO SCH (10:29)
[2020-03-12] MEDS: Calcium Carbonate 500 MG ChewTAB PO SCH ×3 (10:29→20:25)
[2020-03-12] MEDS: Cholecalciferol 1,000 UNITS (25 MCG) TAB PO SCH (10:29)
[2020-03-12] MEDS: Colchicine 0.6 MG TAB PO SCH (10:30)
[2020-03-12] MEDS: Sodium Bicarbonate 140 MEQ in Dextrose 5% in Water 1,000 ML IV SCH (10:30)
[2020-03-12] MEDS: Polyethylene Glycol 3350 17 GM Packet PER TUBE SCH (10:30)
[2020-03-12] MEDS ORDERED: Heparin 10,000 UNITS/ 10 ML VIAL ONE (11:07)
[2020-03-12] MEDS ORDERED: Lidocaine 1% w/Epinephrine 1:100K 20 ML VIAL ONE (13:01)
--- NOTE | 2020-03-12 14:44 | RAD ---
PORTABLE CHEST: 03/12/20 HISTORY: Post dialysis catheter insertion. COMPARISON: 03/08/20 exam. Right sided Hemosplit catheter is present. Catheter tip overlies the distal superior vena cava. No si gns of pneumothorax. No other interval change in the appearance of the chest. IMPRESSION: Post dialysis catheter insertion. POS: KATHERINE
[2020-03-12] MEDS: Dextrose 5% in Water 1,000 ML IV SCH (16:49)
[2020-03-12] MEDS: Norepinephrine 8 MG/0.9% NS 250 ML IVPB PRN (17:43)
[2020-03-12 18:37] LABS: HBSAB Concentration Less than 8.00 mIU/mL; Hep B Core Total Ab Non-Reactive (NonReactive); Hep B Core Total Index 0.21 S/CO (0-0.79); Hep B Surf AB Non-Reactive (NonReactive); Hep C IgG Ab Non-Reactive (NonReactive); Hep C Index 0.23 S/CO (0-0.79)
--- NOTE | 2020-03-12 19:38 | PDOC.CONS ---
- Consultation CHIEF COMPLAINT: Unable to obtain: Intubated and sedated HISTORY OF PRESENT ILLNESS: 54-year-old male in the intensive care unit for COVID19 versus bacterial pneumonia. He has a history of chronic kidney disease but has an acute exacerbation of renal failure requiring dialysis. General surgery is consulted for placement of dialysis catheter. REVIEW OF SYSTEMS: Unable to obtain PAST MEDICAL HISTORY: Diabetes Chronic kidney disease Hypertension Gout Hyperlipidemia PAST SURGICAL HISTORY: Aortic valve replacement FAMILY HISTORY: Unable to obtain SOCIAL HISTORY Unable to obtain PHYSICAL EXAM: Vital Signs: Stable. See ICU flow sheet for details General: Intubated and sedated. Critically ill ENT: Sclera anicteric, pupils equal and reactive, mucous membranes moist Neck: No jugular venous distention, trachea midline Cardiovascular: Regular rate and rhythm Pulmonary: Coarse bilaterally Abdominal: Soft, nondistended, nontender Genitourinary: Normal anatomy Rectal: Deferred Integument: No abnormal rashes or lesions Musculoskeletal: No gross deformities or edema, normal range of motion LABORATORY: Laboratory analysis reviewed no evidence of coagulopathy. IMAGING: Not reviewed ASSESSMENT: 54-year-old male in critical condition with acute on chronic renal failure requiring dialysis. PLAN: We will place percutaneous dialysis catheter. See separate procedure note for details.
--- NOTE | 2020-03-12 19:40 | PDOC.OP ---
Operative Note - Operative Note Operative Note: DATE OF PROCEDURE: March 12, 2020 SURGEON: Dominic Ames MD DIAGNOSIS: Acute on chronic renal failure PROCEDURE: Right internal jugular dialysis catheter placement INDICATIONS: 54-year-old critically ill male with COVID-19 pneumonia with acute on chronic renal failure PROCEDURE IN DETAIL: After obtaining emergency consent, the patient was positioned supine. A timeout was performed prior to beginning the procedure. The area overlying the right internal jugular vein was prepared and draped in the usual fashion. The vein was accessed with a needle utilizing ultrasound for localization. Once a flash was achieved, and venous access confirmed, a guidewire was inserted. A dialysis catheter was introduced using a modified Seldinger technique in the usual fashion. The ports were flushed using injectable saline. Catheter placement was confirmed by last x-ray. COMPLICATIONS: None CATHETER: 16 cm dialysis catheter
[2020-03-12] MEDS: Atorvastatin Calcium 40 MG TAB PO SCH (20:25)
[2020-03-12 23:59] LABS: HBSAg Index 0.32 S/CO (0-0.99); Hep B Surf Ag Non-Reactive S/CO (NonReactive)
[2020-03-13] MEDS: HumaLOG 300 UNITS/3 ML VIAL SC PRN ×6 (00:14→23:54)
[2020-03-13] MEDS: Sodium Bicarbonate 140 MEQ in Dextrose 5% in Water 1,000 ML IV SCH (03:21)
[2020-03-13 03:54] LABS: Band 40 % (5-11); Hemoglobin 7.5 g/dL (14.0-18.0); Lymphocytes 4 % (21-51); MDiff Complete? YES; Mean Corpuscular HGB CONC 29.8 g/dL (32.0-36.0); Mean Corpuscular Hemoglobin 22.9 pg (27.0-31.0); Mean Corpuscular Volume 76.7 fL (78.0-98.0); Mean Platelet Volume 12.8 fL (7.4-10.4); Metamyelocyte 1 % (0-0); Monocytes 4 % (0-10); Neutrophil 51 % (42-75); Nucleated RBC 6 % (0); Platelet Count 186 thou/uL (130-400); Platelet Morphology Comment Appears Adequate; RBC Distribution Width 24.7 % (11.5-14.5); Red Blood Cell (RBC) Count 3.27 mill/uL (4.70-6.10); White Blood Cell (WBC) Count 34.8 thou/uL (4.8-10.8)
[2020-03-13 03:55] LABS: Anion Gap 19 mmol/L (10-20); BUN (Urea Nitrogen) 110 mg/dL (8.4-25.7); Calc. Creatinine Clearance 24 mL/min (70-130); Calcium 6.5 mg/dL (7.8-10.44); Carbon Dioxide 19 mmol/L (22-29); Chloride 104 mmol/L (98-107); Estimated GFR-MDRD 15; Glucose 326 mg/dL (70-105); Potassium 3.8 mmol/L (3.5-5.1); Sodium 138 mmol/L (136-145)
[2020-03-13] MEDS: Propofol 1,000 MG/100 ML VIAL IV PRN ×2 (05:44→18:00)
[2020-03-13] MEDS: Norepinephrine 8 MG/0.9% NS 250 ML IVPB PRN (05:44)
--- NOTE | 2020-03-13 05:45 | PDOC.FM ---
- Subjective Subjective: Intubated and sedated. Does not respond while weaning vent. - Objective Vital Signs & Weight: Vital Signs (12 hours) Temp Pulse Resp BP 03/13/20 04:00 98.6 F 22 H 03/13/20 02:40 99 94/64 03/13/20 02:00 22 H 03/13/20 00:00 98.5 F 22 H 03/12/20 22:40 102 H 96/68 03/12/20 22:00 22 H 03/12/20 20:00 22 H 03/12/20 19:00 98.5 F 03/12/20 18:53 121 H 104/52 L 03/12/20 18:00 26 H Weight Admit Weight 102.603 kg Weight 103.2 kg Most Recent Monitor Data Heart Rate from ECG 100 NIBP 80/57 NIBP BP-Mean 64 Respiration from ECG 22 SpO2 100 I&O: 03/11/20 03/12/20 03/13/20 06:59 06:59 06:59 Intake Total 3196.9 3556.15 916.8 Output Total 1630 1485 760 Balance 1566.9 2071.15 156.8 Result Diagrams: 03/13/20 03:00 03/13/20 03:00 Phys Exam - Physical Examination Intubated and sedated HEENT: moist MMs Neck: supple intubated Respiratory: no wheezing, clear to auscultation bilateral Cardiovascular: RRR, no significant murmur Gastrointestinal: soft mild distention BUE edema Non-responsive to weaning sedation Deviation from normal: Blistering on BUE Dx/Plan (1) Sepsis Code(s): A41.9 - SEPSIS, UNSPECIFIED ORGANISM Status: Acute (2) LAURA (acute kidney injury) Code(s): N17.9 - ACUTE KIDNEY FAILURE, UNSPECIFIED Status: Acute (3) Pneumonia due to COVID-19 virus Code(s): U07.1 - COVID-19; J12.89 - OTHER VIRAL PNEUMONIA Status: Acute (4) DM2 (diabetes mellitus, type 2) Status: Chronic Qualifiers: Diabetes mellitus terminologist insulin use: without mcfp use Diabetes mellitus complication status: with kidney complications Diabetes mellitus complication detail: with chronic kidney disease Chronic kidney disease stage : stage 3 (moderate) Qualified Code(s): E11.22 - Type 2 diabetes mellitus with diabetic chronic kidney disease; N18.3 - Chronic kidney disease, stage 3 ( moderate) (5) Gout Code(s): M10.9 - GOUT, UNSPECIFIED Status: Chronic (6) HLD (hyperlipidemia) Code(s): E78.5 - HYPERLIPIDEMIA, UNSPECIFIED Status: Chronic (7) HTN (hypertension) Code(s): I10 - ESSENTIAL (PRIMARY) HYPERTENSION Status: Chronic Qualifiers: Hypertension type: essential hypertension Qualified Code(s): I10 - Essential (primary) hypertension - Plan Plan: Patient is a 54M with PMHx of DM2, HTN, gout, HLD, hx of aortic valve replacement, CKD3 admitted for: #Sepsis 2/2 COVID-19 Pnemonia likely vs bacterial pneumonia -tested positive on 02/24, symptoms since approx 02/23 -Cefepime (03/04) & Doxycycline IV (03/05) for coverage of bacterial superimposed infection. -s/p convalescent plasma 03/05. Outside the window and does not meet criteria for remdesivir, does not meet criteria for IL-6 inhibitor d/t lack of cytokine storm. -Continue steroids -Intubated 03/05/2020. Central line placed 03/05/20 2/2 worsening respiratory status. -On therapeutic lovenox for COVID anticoagulation. -Continue weaning ventilator, difficult 2/2 encephalopathy, poor response to weaning sedation -D-dimer improved today, 4.53>3.85>3.18 -Patient's wbc continues to increase, repeating blood cx, UA/urine cx, and CXR today #Metabolic Acidosis -sodium bicarb drip started 03/12 -Dr. Godoy increased respiratory rate 03/12 -will continue to monitor #Anemia -patient had drop in Hgb overnight, 7.5 today -CT brain and CT abdomen/pelvis, concern for cranial bleed and/or retroperitoneal bleed -1u prbc ordered, 4-hr H/H ordered #Hypotension -levophed to assist with BP while undergoing dialysis -BP overnight documented low, nursing reports that patient has significant edema and tried taking BP on his thigh which demonstrated systolics in the 140s #Hypernatremia, resolved - Increased free water flushes per OG tube. #Acute renal failure -will hold nephrotoxic medications -Nephrology consulted, Dr. Trevino most recently saw the patient outpatient. -will closely monitor fluid status as he continues to become more edematous. -Dr. Bray consulted, consulted gen surg for dialysis catheter, placed by Dr. Ames on 03/12 in [facility] -Patient did not tolerate dialysis yesterday 2/2 BP, though per nursing due to the edema in his arms those BP may not have been accurate -Levophed to help hold BP for patient to have dialysis today #T2DM -On Lantus 26u daily > 36u daily. -Aggressive sliding scale. -Monitor blood sugars. #Hypertension -hold home metoprolol -will hold lisinopril 2/2 LAURA #Gout -continue colchicine, allopurinol #Hyperlipidemia -continue home atorvastatin #Hx of AV valve replacement -on warfarin at home, holding. Will cover with Lovenox as his INR is no longer supratherapeutic. -check PT, PTT, INR daily. Code: Full Prophylaxis: Th Lovenox Fluids: D5w + 140meq sodium bicarb @ 75 Diet: tube feeds Disposition: Inpatient, guarded, CCU. PCP: Dr. Kohli Addendum - Attending - Attending Attestation Date/Time: 03/13/20 9013 I personally evaluated the patient and discussed the management with Dr. Chun I agree with the History, Examination, Assessment and Plan documented above with any addition or exceptions noted below. Acute hypoxic resp failure from COVID pneumonia- on vent per pulm Hypotension- on levophed gtt. Probably secondary to anemia Anemia-acute- will get CT scan head and abdomen. to r/o bleed. Transfuse 1 unit PRBC. Temp 100.3 and worsening leukocytosis with bandemia- on cefepime an doxycycline - Reculture with urine cx and blood cx and CXR LAURA- continue dialysis per nephro
[2020-03-13] MEDS: Metoclopramide HCl 10 MG/2 ML VIAL IVP SCH ×3 (07:23→22:16)
[2020-03-13] MEDS: Polyethylene Glycol 3350 17 GM Packet PER TUBE SCH (07:24)
--- NOTE | 2020-03-13 08:23 | PRG ---
DATE OF SERVICE: 03/12/2020 SUBJECTIVE: The patient was seen and examined at ICU, remains intubated. He is on COVID isolation. OBJECTIVE: GENERAL: The patient intubated, seen in ICU. VITAL SIGNS: Temperature 98.4, pulse 106, blood pressure 118/86. HEENT: Intubated. CV: S1 and S2 heard. RESPIRATORY: Clear. GI: Abdomen: soft MUSCULOSKELETAL: 2+ edema. Facial puffiness also present. NEUROLOGY: Intubated, sedated. LABORATORY DATA: Hemoglobin is 10.9, WBC is 29.4. Potassium 4.8, sodium 138, bicarb is 17, BUN is 124, creatinine is 4.5. ASSESSMENT AND PLAN: 1. Acute kidney injury on chronic kidney disease, stage 3 with worsening labs. Plan to start on dialysis. The patient also remains fluid overloaded. 2. Fluid overload. 3. Azotemia. 4. Acute hypoxic respiratory failure. 5. Hypertension. 6. Hypocalcemia. Start on dialysis. 7. Acidosis. Agree with bicarb drip, but we will start on dialysis. We were not able to contact the family, so two physicians will be signing the consent, and I did talk with Dr. Godoy and also with the dialysis catheter. We will start on dialysis once the access is placed. Prognosis is poor. Job ID: [id number]
[2020-03-13 08:24] LABS: CO2 Tension 29.2 mmHg (35.0-45.0); Calcium, Ionized (arterial) 0.87 mmol/L (1.12-1.30); Carboxyhemoglobin (COHb) 0.8 gm% (0.0-3.0); Hemoglobin (Hb) 7.7 g/dL (14.0-18.0); O2 Tension (PaO2), arterial 75.8 mmHg (80.0-100.0); Potassium - ABG Lab 3.49 mmol/L (3.70-5.30); pH, Arterial 7.41 (7.35-7.45)
[2020-03-13] MEDS: Allopurinol 300 MG TAB PO SCH (08:26)
[2020-03-13] MEDS: Calcium Carbonate 500 MG ChewTAB PO SCH ×3 (08:26→21:18)
[2020-03-13] MEDS: Aspirin 81 mg Enteric Coated Tablet PO SCH (08:26)
[2020-03-13] MEDS: Colchicine 0.6 MG TAB PO SCH (08:26)
[2020-03-13] MEDS: Ezetimibe 10 MG TAB PO SCH (08:26)
[2020-03-13] MEDS: methylPREDNISolone Sod Succ 40 MG VIAL IVP SCH ×2 (08:27→21:18)
[2020-03-13] MEDS: Cholecalciferol 1,000 UNITS (25 MCG) TAB PO SCH (08:27)
[2020-03-13] MEDS: Famotidine/PF 20 mg/2ml Vial SLOW IVP SCH (08:28)
[2020-03-13] MEDS: Cefepime 1 GM in Sodium Chloride 0.9% 100 ML IVPB SCH ×2 (08:28→21:17)
[2020-03-13] MEDS: Insulin Glargine 36 UNITS in Pre-Filled Syringe 1 EACH SC SCH (08:28)
[2020-03-13] MEDS ORDERED: Enoxaparin Sodium 100 MG/ML SYRINGE SC SCH (09:00)
[2020-03-13] MEDS: Albumin 25% 25 GM/100 ML BOT IVPB PRN (10:05)
--- NOTE | 2020-03-13 10:30 | PRG ---
DATE OF SERVICE: 03/13/2020 35 minutes critical care time. SUBJECTIVE: The patient dropped his pressure yesterday afternoon after having the dialysis catheter placed. He is now on a Levophed drip. His hemoglobin this morning is substantially lower than what it was. Nurse is also concerned about the patient's altered mental status as he is not awakened. OBJECTIVE: VITAL SIGNS: Temperature is 100.3, pulse 108, blood pressure 113/60, O2 saturation 100% on mechanical ventilation. HEENT: Unremarkable except for conjunctival edema and the oropharyngeal ET tube. NECK: No adenopathy or JVD. He has a left IJ dialysis catheter. CARDIAC: S1 and S2. Regular. ABDOMEN: Soft and nontender. EXTREMITIES: He has firmness around his left groin site where dialysis catheter insertion was attempted yesterday. He is edematous in all extremities. LABORATORY DATA: Sodium 138, potassium 3.8, chloride 104, CO2 of 19, BUN 110, creatinine 5.0, glucose 326. PH 7.41, pCO2 of 29, PO2 of 75, AA gradient 244, SIMV rate 22, tidal volume 500, PEEP 8, pressure support 10, and FiO2 of 50%. White blood cell count 34.8, hematocrit 25.1, and platelet count 186. ASSESSMENT: 1. COVID-19 pneumonia with respiratory failure requiring mechanical ventilation. 2. Acute renal failure secondary to COVID-19. 3. Metabolic acidosis. 4. Question of blood loss causing anemia. 5. Altered mental status. PLAN: 1. Check CT head to rule out [employer] pathology. 2. Check CT abdomen and pelvis to rule out retroperitoneal hematoma. 3. Continue mechanical ventilation. 4. Dialysis plan today. 5. Hold anticoagulation until we know whether or not he is actively bleeding. Job ID: [id number]
--- NOTE | 2020-03-13 12:19 | PRG ---
DATE OF SERVICE: 03/13/2020 SUBJECTIVE: The patient is on COVID isolation. OBJECTIVE: VITAL SIGNS: Temperature 100.3, pulse , respiratory rate 20, and blood pressure 151/61. LABORATORY DATA: Potassium 3.8, BUN is 110, creatinine is 5.02. ASSESSMENT AND PLAN: 1. Acute kidney injury on chronic kidney disease, stage 3 with worsening labs. tolerated dialysis yesterday. Could not tolerate dialysis due to hypertension and tachycardia. Even though there was no UF, the patient still have hypertension and tachycardia. 2. Fluid overload. 3. Acute hypoxic failure. 4. COVID-19 infection. 5. Hypertension. 6. Acidosis. Plan to have dialysis if tolerated. Prognosis is very poor. Job ID: [id number]
[2020-03-13 12:47] LABS: Bilirubin Negative (Negative); Blood, Urine 2+ (Negative); Clarity Extra Turbid (Clear); Glucose, Urine (Dipstick) 100 mg/dL (Negative); Ketone, Urine Trace mg/dL (Negative); Leukocyte 500 Leu/uL (Negative); Nitrite Negative (Negative); Protein, Urine (Dipstick) 100 mg/dL (Neg-Trace); Specific Gravity, Urine 1.018 (1.002-1.036); Squamous Epithelial 0-3 HPF (0-3); Urobilinogen Normal mg/dL (Less than 2); pH, Urine 5.5 (5.0-9.0)
[2020-03-13 12:53] LABS: Bacteria/HPF 1+ HPF (None Seen)
[2020-03-13 12:56] LABS: Renal Epithelial 0-3 HPF (None Seen); Transitional Epithelial 0-3 HPF (None Seen)
[2020-03-13 12:57] LABS: Trichomonas/HPF Rare HPF (None Seen)
[2020-03-13] MEDS: Lorazepam 2 MG/ML VIAL SLOW IVP PRN (13:41)
--- NOTE | 2020-03-13 13:46 | RAD ---
CHEST ONE VIEW: Indication: History of infection. Comparison: 03-12-2020 at 2:25 p.m. FINDINGS: Bilateral airspace disease is stable. Patient was intubated with gastric catheter placement. Large luis re central venous catheter involving the right IJ extending down into the right atrium is stable. Sma ll bilateral pleural effusions persist. No pneumothorax is evident. IMPRESSION: Largely stable examination. POS: [facility]
--- NOTE | 2020-03-13 16:43 | CT ---
CT BRAIN PERFORMED WITHOUT CONTRAST ENHANCEMENT: History: Altered mental status. Covid positive. Comparison: 02-25-2020 FINDINGS: The ventricular and cisternal system is within normal limits, slightly prominent for age, but stable as compared to the 02-25-2020 exam. No intracerebral hemorrhage or extraaxial fluid collections. The ma stoid air cells and visualized sinuses are clear. IMPRESSION: No acute intracranial abnormalities. POS: [facility]
--- NOTE | 2020-03-13 16:49 | CT ---
CT ABDOMEN AND PELVIS PERFORMED WITHOUT CONTRAST ENHANCEMENT: History: Retroperitoneal hematoma. FINDINGS: There are bibasilar infiltrative lung changes with small effusions. The liver and spleen are normal in size without focal abnormalities. Gallstones are noted within the gallbladder neck region. There is soft tissue changes in the pancreatic head and second portion of th e duodenal bulb region with is extending in the retroperitoneum down along more of the left paracolic gutter region. There is a second area which is near the pancreatic tail near the junction of the williamson creatic tail and greater curvature of the stomach and splenic flexure. There is also a high attenuati on fluid density that is seen tracking along this area. There is some ascites noted adjacent to the liver. No significant periaortic adenopathy. Right and left adrenal glands and right and left kidneys are normal in size. No obstruction. CT OF PELVIS PERFORMED WITH CONTRAST ENHANCEMENT: Soft tissue changes surround the left common iliac artery and vein compatible with hematoma. There is a rectal tube in place. No free fluid seen in the pelvis. A Marie catheter is noted. Right f emoral line is seen with the catheter tip near the confluence of the right common iliac vein and IVC. IMPRESSION: 1. Dense consolidation in both lower lobes, small bilateral effusions. 2. Findings compatible with some retroperitoneal bleeding, probably from two separate locations, one near the pancreatic head and one near the pancreatic tail region. Fairly prominent changes along the pancreatic tail tracking inferiorly in the retroperitoneum. 3. Left groin hematoma. 4. Gallstones 5. Findings discussed with Dr. Godoy. [place] [facility]
--- NOTE | 2020-03-13 18:17 | PDOC.BPN ---
- Brief Progress Note Called to evaluate today for evidence of intra-abdominal bleeding. It was reported by the intensive care unit, that he had a sudden clinical change and required pressor support for hypotension. EXAM: HR 87 BP 121/71 the ICU flowsheet for detail General: Intubated and sedated Pulmonary: Coarse bilaterally Abdomen: Soft, non-distended CV: Regular rate and rhythm, palpable distal pulses Extremities: Stable edema LABORATORY / IMAGING: Laboratory analysis reviewed and demonstrates a drop in hemoglobin from 10.1- 7.5. Also demonstrates a base deficit of 6. Computed tomography the abdomen reviewed and personal discussion held with radiologist. Demonstrates retroperitoneal bleeding in the area of the pancreas and the duodenum. PLAN: 84-year-old critically ill male due to COVID-19 pneumonia, now with spontaneous retroperitoneal hemorrhage. No surgical indication at this time. Recommend serial H&H and coagulation studies. Discontinue therapeutic Lovenox. Transfuse as indicated.
[2020-03-13 19:55] LABS: Hemoglobin 6.3 g/dL (14.0-18.0)
[2020-03-13] MEDS: Atorvastatin Calcium 40 MG TAB PO SCH (21:18)
[2020-03-13 22:49] LABS: INR-International Normal Ratio 1.4; PTT 46.2 sec (22.9-36.1)
[2020-03-14] MEDS: Propofol 1,000 MG/100 ML VIAL IV PRN ×2 (04:29→16:41)
[2020-03-14] MEDS: HumaLOG 300 UNITS/3 ML VIAL SC PRN ×4 (04:42→23:25)
[2020-03-14 05:14] LABS: PTT 42.2 sec (22.9-36.1)
[2020-03-14] MEDS: Metoclopramide HCl 10 MG/2 ML VIAL IVP SCH ×3 (05:15→21:44)
[2020-03-14 05:17] LABS: INR-International Normal Ratio 1.3; Prothrombin Time 15.7 sec (12.0-14.7)
[2020-03-14 05:18] LABS: Anion Gap 18 mmol/L (10-20); BUN (Urea Nitrogen) 108 mg/dL (8.4-25.7); Calc. Creatinine Clearance 23 mL/min (70-130); Calcium 6.9 mg/dL (7.8-10.44); Carbon Dioxide 20 mmol/L (22-29); Chloride 103 mmol/L (98-107); Estimated GFR-MDRD 14; Glucose 138 mg/dL (70-105); Sodium 138 mmol/L (136-145)
[2020-03-14 05:38] LABS: Band 41 % (5-11); Hemoglobin 6.9 g/dL (14.0-18.0); Hypochromia SLIGHT = 6-15 cells (100X) (0-5/hpf); Lymphocytes 8 % (21-51); MDiff Complete? YES; Mean Corpuscular HGB CONC 31.6 g/dL (32.0-36.0); Mean Corpuscular Hemoglobin 25.2 pg (27.0-31.0); Mean Corpuscular Volume 79.6 fL (78.0-98.0); Mean Platelet Volume 12.1 fL (7.4-10.4); Monocytes 2 % (0-10); Neutrophil 49 % (42-75); Nucleated RBC 2 % (0); Platelet Count 118 thou/uL (130-400); Platelet Morphology Comment Appears Decreased; RBC Distribution Width 20.8 % (11.5-14.5); Red Blood Cell (RBC) Count 2.75 mill/uL (4.70-6.10); White Blood Cell (WBC) Count 26.3 thou/uL (4.8-10.8)
--- NOTE | 2020-03-14 06:24 | PDOC.FM ---
- Subjective Subjective: Pt is sedated and intubated. ~300 mls out with dialysis yesterday due to hypotension. Levophed was d/c overnight with BP's remaining stable. He is requiring 3 U pRBC's due to retroperitoneal bleed of head/tail pancreas. - Objective Vital Signs & Weight: Vital Signs (12 hours) Temp Pulse Resp BP Pulse Ox 03/14/20 06:00 22 H 03/14/20 04:00 98.1 F 22 H 03/14/20 03:53 75 03/14/20 02:00 22 H 03/14/20 00:45 98.5 F 03/14/20 00:00 98.5 F 22 H 03/13/20 23:41 83 107/53 L 03/13/20 22:00 22 H 03/13/20 21:02 86 03/13/20 20:00 98.2 F 22 H 100 Weight Admit Weight 102.603 kg Weight 103.7 kg Most Recent Monitor Data Heart Rate from ECG 84 NIBP 117/55 NIBP BP-Mean 75 Respiration from ECG 22 SpO2 100 I&O: 03/12/20 03/13/20 03/14/20 06:59 06:59 06:59 Intake Total 3556.15 2165.3 1407.6 Output Total 1485 1170 370 Balance 2071.15 995.3 1037.6 Result Diagrams: 03/14/20 04:41 03/14/20 04:41 Phys Exam - Physical Examination sedated, response to painful stimuli periorbital edema Neck: no nodes Did not appreciate wheezing, rales, rhonchi on exam, currently intubated Cardiovascular: RRR, no significant murmur Gastrointestinal: soft, no distention, positive bowel sounds pitting edema present in LE Dx/Plan (1) COVID-19 Code(s): U07.1 - COVID-19 Status: Acute (2) Retroperitoneal hemorrhage Code(s): R58 - HEMORRHAGE, NOT ELSEWHERE CLASSIFIED Status: Acute (3) LAURA (acute kidney injury) Code(s): N17.9 - ACUTE KIDNEY FAILURE, UNSPECIFIED Status: Acute (4) DM2 (diabetes mellitus, type 2) Status: Chronic Qualifiers: Diabetes mellitus ferry terminal agent insulin use: without fpc use Diabetes mellitus complication status: with kidney complications Diabetes mellitus complication detail: with chronic kidney disease Chronic kidney disease stage : stage 3 (moderate) Qualified Code(s): E11.22 - Type 2 diabetes mellitus with diabetic chronic kidney disease; N18.3 - Chronic kidney disease, stage 3 ( moderate) (5) HTN (hypertension) Code(s): I10 - ESSENTIAL (PRIMARY) HYPERTENSION Status: Chronic Qualifiers: Hypertension type: essential hypertension Qualified Code(s): I10 - Essential (primary) hypertension (6) Prosthetic replacement of heart valve Code(s): Z95.2 - PRESENCE OF PROSTHETIC HEART VALVE Status: Chronic - Plan Plan: Patient is a 54M with PMHx of DM2, HTN, gout, HLD, hx of aortic valve replacement, CKD3 admitted for: #Sepsis 2/2 COVID-19 Pnemonia likely vs bacterial pneumonia -tested positive on 02/24, symptoms since approx 02/23 -Cefepime (03/04) & Doxycycline IV (03/05) for coverage of bacterial superimposed infection. -s/p convalescent plasma 03/05. Outside the window and does not meet criteria for remdesivir, does not meet criteria for IL-6 inhibitor d/t lack of cytokine storm. -Continue steroids -Intubated 03/05/2020. Central line placed 03/05/20 2/2 worsening respiratory status. - Lovenox d/c due to retroperitoneal bleed -Continue weaning ventilator, difficult 2/2 encephalopathy, poor response to weaning sedation -D-dimer improved today, 4.53>3.85>3.18 -> 2.25 #Acute blood loss anemia - s/p 3 U pRBC - trend h/h - d/c lovenox; repeat ct abdomen on 03/16 #Leukocytosis - pending cultures, WBC remains elevated #Acute renal failure -will hold nephrotoxic medications -Nephrology consulted, Dr. Trevino most recently saw the patient outpatient. -will closely monitor fluid status as he continues to become more edematous. -Dr. Bray consulted, consulted gen surg for dialysis catheter, placed by Dr. Ames on 03/12 in R IJ -Pt not on levophed and pressures are holding. He will have dialysis today but unable to much fluid currently due to no fluid in intravascular space and pt is third spacing. Continue albumin. #Hx of AV valve replacement -on warfarin at home, holding. Held lovenox for bleed - echocardiogram 03/15 to visualize valve and assess for clotting - will need to consider restarting lovenox depending on echo and ct abdomen on . #Metabolic Acidosis -sodium bicarb drip started 03/12 -Dr. Godoy increased respiratory rate 03/12 -will continue to monitor #Hypotension - resolved - no longer requiring levophed #Hypernatremia, resolved - Increased free water flushes per OG tube. #T2DM -well controlled with long acting 36 U -HSSI #Hypertension -hold home metoprolol -will hold lisinopril 09/20 LAURA #Gout -continue colchicine, allopurinol #Hyperlipidemia -continue home atorvastatin Code: Full Prophylaxis: held Fluids: Held Diet: tube feeds held Disposition: Inpatient, guarded, CCU. PCP: Dr. Kohli Addendum - Attending - Attending Attestation Date/Time: 03/14/20 [id number] I personally evaluated the patient and discussed the management with Dr. Gallego. I agree with the History, Examination, Assessment and Plan documented above with any addition or exceptions noted below. Patient is gravely ill. He has been transfused this morning has hemoglobin below 7 due to retroperitoneal bleed around pancreas. Gen surg is consulted. Plan is to hold anticoagulation and repeat CT abdomen on Saturday. Getting echo tomorrow to evaluate heart valve. He remains intubated and sedated. He was being dialyzed again this morning as it has been difficult to pull fluid off.
[2020-03-14] MEDS: Polyethylene Glycol 3350 17 GM Packet PER TUBE SCH (07:36)
[2020-03-14 08:03] LABS: Actual Bicarbonate (HCO3a) 20.5 mEq/L (22-28); Base Excess (BEa) -2.7 mEq/L (-2.0 to +3.0); CO2 Tension 29.5 mmHg (35.0-45.0); Calcium, Ionized (arterial) 0.95 mmol/L (1.12-1.30); Carboxyhemoglobin (COHb) 0.4 gm% (0.0-3.0); Hemoglobin (Hb) 8.4 g/dL (14.0-18.0); O2 Tension (PaO2), arterial 73.6 mmHg (80.0-100.0); Potassium - ABG Lab 2.97 mmol/L (3.70-5.30); pH, Arterial 7.46 (7.35-7.45)
[2020-03-14 08:05] LABS: ALV-art Gradient 246.025 (0-20); Puncture Site RR
[2020-03-14] MEDS: Albumin 25% 25 GM/100 ML BOT IVPB PRN (08:38)
--- NOTE | 2020-03-14 09:35 | PRG ---
DATE OF SERVICE: 03/14/2020 SUBJECTIVE: Fei Teague this morning intubated in the vent, sedated. OBJECTIVE: VITAL SIGNS: Blood pressure 160/60, pulse 106, saturations 100%, respirations 18. CHEST: Decreased breath sounds. No wheezing. CARDIAC: Normal S1 and S2. No gallops. ABDOMEN: No masses. LABORATORY DATA: His H and H have dropped substantially at 7 and 21 right now. Creatinine is elevated from his renal failure 5. PO2 is 73, pCO2 is 20, pH 7.46, rate of 22, 50%, and 8 of PEEP. White count 26,000 with big left shift. IMPRESSION: 1. Peritoneal bleed, probably from anticoagulation. 2. Chronic renal failure. 3. Cornell positive pneumonia. 4. Respiratory failure. The patient has a prosthetic valve. Unfortunately, he has a retroperitoneal bleed at least pancreatic. I have also showed at this stage what we can do. He clearly needs anticoagulation. He is being dialyzed. He is already on broad-spectrum antibiotics including steroids. Perhaps, he is not weanable at this stage. We will discuss with family. Prognosis is grave. One-half hour of critical care time. Job ID: [id number]
[2020-03-14] MEDS: Aspirin 81 mg Enteric Coated Tablet PO SCH (10:04)
[2020-03-14] MEDS: Insulin Glargine 36 UNITS in Pre-Filled Syringe 1 EACH SC SCH (10:04)
[2020-03-14] MEDS: Famotidine/PF 20 mg/2ml Vial SLOW IVP SCH (10:04)
[2020-03-14] MEDS: Calcium Carbonate 500 MG ChewTAB PO SCH ×3 (10:04→20:21)
[2020-03-14] MEDS: Ezetimibe 10 MG TAB PO SCH (10:05)
[2020-03-14] MEDS: Allopurinol 300 MG TAB PO SCH (10:05)
[2020-03-14] MEDS: Cholecalciferol 1,000 UNITS (25 MCG) TAB PO SCH (10:12)
[2020-03-14] MEDS: Colchicine 0.6 MG TAB PO SCH (10:12)
[2020-03-14] MEDS: methylPREDNISolone Sod Succ 40 MG VIAL IVP SCH ×2 (10:16→20:21)
[2020-03-14] MEDS ORDERED: Heparin 10,000 UNITS/ 10 ML VIAL ONE (11:05)
[2020-03-14] MEDS ORDERED: Iopamidol-370 76% 500 ML 1 ML ONE (11:28)
[2020-03-14] MEDS ORDERED: Cefepime 1 GM in Sodium Chloride 0.9% 100 ML IVPB SCH (12:00)
[2020-03-14] MEDS: Cefepime 1 GM in Sodium Chloride 0.9% 100 ML IVPB SCH (12:03)
--- NOTE | 2020-03-14 13:06 | PRG ---
DATE OF SERVICE: 03/14/2020 SUBJECTIVE: This is a 54-year-old gentleman being seen for end-stage renal disease. The patient is resting. OBJECTIVE: GENERAL: The patient is awake and alert. VITAL SIGNS: Afebrile, pulse 85, breathing at 16, and blood pressure . HEENT: Head normocephalic and atraumatic. Eyes intact, no ulcers. Nose intact, no ulcers. Ears intact, no ulcers. NECK: Supple. No JVD. CHEST: Symmetrical and clear. CARDIOVASCULAR: Shows S1 and S2, no rub, no murmur. GASTROINTESTINAL: Abdomen is soft, bowel sounds positive. EXTREMITIES: Show no edema or ulcers. SKIN: Shows no rash or petechiae. MUSCULOSKELETAL: Shows no joint swelling or stiffness. GENITOURINARY: Shows no Marie or CVA tenderness. NEUROLOGIC: Motor intact. Cranial nerves intact. LABORATORY DATA: Reviewed. ASSESSMENT AND PLAN: 1. Chronic kidney disease, stage 6 with acute kidney injury. Plan dialysis. 2. Hypertension, stable. 3. Anemia, stable. 4. Hypokalemia. Recommend potassium replacement. 5. Medications based on GFR are appropriate. Job ID: [id number]
[2020-03-14 13:57] LABS: Hemoglobin 7.7 g/dL (14.0-18.0)
[2020-03-14 14:10] LABS: INR-International Normal Ratio 1.2; PTT 43.5 sec (22.9-36.1); Prothrombin Time 14.9 sec (12.0-14.7)
[2020-03-14] MEDS ORDERED: Calcium Chloride 13.6 MEQ in Sodium Chloride 0.9% 100 ML IVPB SCH (14:15)
[2020-03-14] MEDS ORDERED: Sodium Bicarb 50 MEQ/50 ML Abboject 8.4% SYRINGE IVP SCH (14:30)
--- NOTE | 2020-03-14 14:43 | PRG ---
DATE OF SERVICE: 03/14/2020 SUBJECTIVE: Mr. Teague is a 54-year-old man who was previously anticoagulated for his prosthetic valve. He is on full mechanical ventilator support in acute respiratory failure as well as acute renal failure, requiring dialysis. The patient developed a retroperitoneal hematoma. The anticoagulation is currently on hold. OBJECTIVE: VITAL SIGNS: On examination, this morning, his vital signs remain stable. Blood pressure 146/70, pulse 92, respiratory rate is 22, maximum temperature in last 24 hours is 100.3 degrees Fahrenheit, and oxygen saturation is 95%. ABDOMEN: Soft and nondistended. Bowel sounds are present in all 4 quadrants. HEART: Reveals regular rate and rhythm. LUNGS: Reveals bibasilar rhonchi. Breathing regular and nonlabored. LABORATORY FINDINGS: Today include a CBC with 26,300 white blood cells, hemoglobin and hematocrit 6.9 and 21.8 respectively. Platelet count is 118,000. Differential counts as follows; 49 segmented neutrophils, 41 bands, 8 lymphocytes, 2 monocytes. Arterial blood gas; pH 7.46, pCO2 is 30, PO2 is 74, base excess is -2.7, ionized calcium is 0.95. Metabolic profile; sodium 138, potassium is 3.0, chloride is 103, bicarb is 20, BUN is 108, and creatinine is 5.21, and glucose is 138. IMPRESSION: 1. Acute spontaneous retroperitoneal hemorrhage, previously anticoagulated. 2. Acute respiratory failure. 3. Acute renal failure. 4. Acute hypokalemia. 5. Acute hypocalcemia. PLAN: 1. Correct abnormal electrolytes. 2. I recommend we continue to hold on anticoagulation, although the patient's risk for thromboembolic complications with regard to the prosthetic valve was well noted. 3. There is no acute surgical indication for this patient at this time. General Surgery will continue to follow along and make further recommendations as necessary. Job ID: [id number]
--- NOTE | 2020-03-14 15:39 | CT ---
CT OF THE ABDOMEN AND PELVIS WITH IV CONTRAST INDICATION: 54-year-old male with history of retroperitoneal hematoma COMPARISON: Prior CT abdomen pelvis without contrast dated March 13, 2020 FINDINGS: ABDOMEN: Lung bases: There is bibasilar consolidation with small bilateral pleural effusions Liver: No focal lesion. Gallbladder: There are layered gallstones within the gallbladder Pancreas: There is prominent mildly hyperdense fluid surrounding the pancreas suspicious for pancreat itis. There is no evidence to suggest pancreatic necrosis. Adrenal glands: Normal. Spleen: Normal. Kidneys and ureters: Normal. No hydronephrosis. Vasculature: There are moderate vascular calcifications seen involving the visualized vasculature. Th ere is a right common femoral vein central venous catheter projecting up to the right common iliac vein. Lymph nodes:No lymphadenopathy. Free fluid in abdomen:No free fluid is evident. PELVIS: Small and large bowel: Normal Appendix:Normal Bladder: Normal. Rectal and perirectal soft tissues:There is a rectal tube in place. Reproductive structures: Normal. Free fluid in pelvis: No free fluid is evident. Lymphadenopathy pelvis: No lymphadenopathy is evident. Osseous structures: No acute osseous abnormality. No destructive osteolytic or osteoblastic lesion i s identified. There is scattered degenerative and osteoarthritic changes. Soft tissues:Mild anasarca IMPRESSION: 1. Findings most suspicious for acute pancreatitis. The hyperdense fluid may reflect a small amount o f retroperitoneal hemorrhage. This appears less dense than on the comparison examination. Recommend correlation with patient's clinical laboratories. 2. Cholelithiasis 3. Bibasilar pneumonia with small bilateral pleural effusions.
[2020-03-14] MEDS ORDERED: Cefepime 0.5 GM, Admixture Fee 1 EACH in Sodium Chloride 0.9% 100 ML IVPB SCH (17:00)
[2020-03-14] MEDS: Atorvastatin Calcium 40 MG TAB PO SCH (20:21)
[2020-03-14 21:09] LABS: Hemoglobin 6.7 g/dL (14.0-18.0); Platelet Count 103 thou/uL (130-400)
[2020-03-15] MEDS: Propofol 1,000 MG/100 ML VIAL IV PRN (04:42)
[2020-03-15 05:15] LABS: INR-International Normal Ratio 1.2; PTT 32.8 sec (22.9-36.1); Prothrombin Time 15.3 sec (12.0-14.7)
[2020-03-15 05:28] LABS: Anion Gap 19 mmol/L (10-20); BUN (Urea Nitrogen) 98 mg/dL (8.4-25.7); Calc. Creatinine Clearance 23 mL/min (70-130); Calcium 7.7 mg/dL (7.8-10.44); Carbon Dioxide 21 mmol/L (22-29); Chloride 102 mmol/L (98-107); Estimated GFR-MDRD 14; Glucose 118 mg/dL (70-105); Potassium 3.3 mmol/L (3.5-5.1); Sodium 139 mmol/L (136-145)
[2020-03-15 05:48] LABS: Hemoglobin 7.1 g/dL (14.0-18.0); Mean Corpuscular HGB CONC 33.2 g/dL (32.0-36.0); Mean Corpuscular Hemoglobin 27.4 pg (27.0-31.0); Mean Corpuscular Volume 82.5 fL (78.0-98.0); Mean Platelet Volume 12.6 fL (7.4-10.4); Platelet Count 87 thou/uL (130-400); RBC Distribution Width 17.3 % (11.5-14.5); White Blood Cell (WBC) Count 43.3 thou/uL (4.8-10.8)
[2020-03-15] MEDS: Metoclopramide HCl 10 MG/2 ML VIAL IVP SCH ×3 (05:58→19:35)
[2020-03-15 06:06] LABS: Band 42 % (5-11); Lymphocytes 2 % (21-51); MDiff Complete? YES; Metamyelocyte 5 % (0-0); Monocytes 6 % (0-10); Neutrophil 45 % (42-75); Nucleated RBC 5 % (0); Platelet Morphology Comment Appears Decreased
--- NOTE | 2020-03-15 06:23 | PDOC.FM ---
- Subjective Subjective: Responding to commands. Awake. - Objective Vital Signs & Weight: Vital Signs (12 hours) Temp Pulse Resp Pulse Ox 03/15/20 06:00 22 H 03/15/20 05:00 98.6 F 03/15/20 04:03 88 03/15/20 04:00 22 H 03/15/20 02:00 22 H 03/15/20 01:40 98.9 F 03/15/20 00:00 22 H 03/14/20 22:45 98.5 F 03/14/20 22:30 98.5 F 03/14/20 22:00 22 H 03/14/20 20:00 98.1 F 22 H 98 03/14/20 19:06 90 Weight Admit Weight 102.603 kg Weight 103.7 kg Most Recent Monitor Data Heart Rate from ECG 85 NIBP 126/65 NIBP BP-Mean 85 Respiration from ECG 22 SpO2 100 I&O: 03/13/20 03/14/20 03/15/20 06:59 06:59 06:59 Intake Total 2165.3 1510.2 1534.8 Output Total 1170 1120 940 Balance 995.3 390.2 594.8 Result Diagrams: 03/15/20 04:51 03/15/20 04:51 Phys Exam - Physical Examination currently intubated but responding to commands HEENT: sclera anicteric diffuse swelling, Neck: no JVD, full ROM did not appreciate significant wheezing, rales Cardiovascular: RRR, no significant murmur Gastrointestinal: soft, non-tender Musculoskeletal: pulses present significant LE edema able to squeeze fingers, blink to questions Dx/Plan (1) COVID-19 Code(s): U07.1 - COVID-19 Status: Acute (2) Retroperitoneal hemorrhage Code(s): R58 - HEMORRHAGE, NOT ELSEWHERE CLASSIFIED Status: Acute (3) LAURA (acute kidney injury) Code(s): N17.9 - ACUTE KIDNEY FAILURE, UNSPECIFIED Status: Acute (4) DM2 (diabetes mellitus, type 2) Status: Chronic Qualifiers: Diabetes mellitus [facility] insulin use: without terminal carman use Diabetes mellitus complication status: with kidney complications Diabetes mellitus complication detail: with chronic kidney disease Chronic kidney disease stage : stage 3 (moderate) Qualified Code(s): E11.22 - Type 2 diabetes mellitus with diabetic chronic kidney disease; N18.3 - Chronic kidney disease, stage 3 ( moderate) (5) HTN (hypertension) Code(s): I10 - ESSENTIAL (PRIMARY) HYPERTENSION Status: Chronic Qualifiers: Hypertension type: essential hypertension Qualified Code(s): I10 - Essential (primary) hypertension (6) Prosthetic replacement of heart valve Code(s): Z95.2 - PRESENCE OF PROSTHETIC HEART VALVE Status: Chronic - Plan Plan: Patient is a 54M with PMHx of DM2, HTN, gout, HLD, hx of aortic valve replacement, CKD3 admitted for: #Sepsis 2/2 COVID-19 Pnemonia likely vs bacterial pneumonia -tested positive on 02/24, symptoms since approx 02/23 -Start meropenem for worsening leukocytosis, add antifungal tomorrow if no improvement -s/p convalescent plasma 03/05. Outside the window and does not meet criteria for remdesivir, does not meet criteria for IL-6 inhibitor d/t lack of cytokine storm. -Continue steroids -Intubated 03/05/2020. Central line placed 03/05/20 2/2 worsening respiratory status. - Lovenox d/c due to retroperitoneal bleed -Continue weaning ventilator, difficult 2/2 encephalopathy, poor response to weaning sedation -D-dimer imroved #Acute blood loss anemia - s/p 4 U pRBC; 2 more unit with dialysis, received FFP overnight - trend h/h - d/c lovenox; repeat ct abdomen on 03/16; CT abdomen on 03/14 did not show worsening retroperitoneal bleed # DIC - monitor platelets - need to resolve initial insult - need to consider risks of anticoagulation in the setting of DIC # Acute Pancreatitis vs Hemorrhagic Pancreas causing lipase elevation - cannot administer fluids - control pain #Leukocytosis - cultures from 03/13 negative at this point - start meropenem, start antifungal if no improvement tomorrow #Acute renal failure -will hold nephrotoxic medications -Nephrology consulted, Dr. Trevino most recently saw the patient outpatient. -Dr. Bray consulted, consulted gen surg for dialysis catheter, placed by Dr. Ames on 03/12 in R IJ -no longer requiring levophed; continue dialysis. Pt is grossly fluid overloaded #Hx of AV valve replacement -on warfarin at home, holding. Held lovenox for bleed - echocardiogram 03/16 to visualize valve and assess for clotting - will need to consider restarting anticoag depending on echo and ct abdomen on 03/16. Pt is likely in DIC. #Metabolic Acidosis - resolved no currently Resp Alkalosis -decrease rate -will continue to monitor #Hypotension - resolved - no longer requiring levophed #Hypernatremia, resolved - Increased free water flushes per OG tube. #T2DM -well controlled with long acting 36 U -HSSI #Hypertension -hold home metoprolol -will hold lisinopril 2/2 LAURA #Gout -d/c colchicine, allopurinol #Hyperlipidemia -continue home atorvastatin Code: Full Prophylaxis: held Fluids: Held Diet: start tube feeds at 20 per/hour and will consider TPN Disposition: Inpatient, guarded, CCU. PCP: Dr. Kohli Addendum - Attending - Attending Attestation Date/Time: 03/15/20 1869 I personally evaluated the patient and discussed the management with Dr. Gallego. I agree with the History, Examination, Assessment and Plan documented above with any addition or exceptions noted below. Pt with covid pneumonia nd significan leukocytosis. Merem added today. CT showed pancreatitis with retroperitoneal hemorrhage stable. He will received addition PRBC with dialysis today. Tube feeds are held. Pt did squeeze hands to commands and blinked eyes on command. Pt remains gravely ill. Cultures on are negative. Will continue to trend lab.
[2020-03-15 07:26] LABS: Actual Bicarbonate (HCO3a) 19.3 mEq/L (22-28); Base Excess (BEa) -3.4 mEq/L (-2.0 to +3.0); Calcium, Ionized (arterial) 1.01 mmol/L (1.12-1.30); Carboxyhemoglobin (COHb) 0.6 gm% (0.0-3.0); Hemoglobin (Hb) 7.4 g/dL (14.0-18.0); O2 Tension (PaO2), arterial 82.3 mmHg (80.0-100.0); Potassium - ABG Lab 3.12 mmol/L (3.70-5.30); pH, Arterial 7.49 (7.35-7.45)
[2020-03-15 07:28] LABS: ALV-art Gradient 242.075 (0-20); CO2 Tension 25.7 mmHg (35.0-45.0); Puncture Site LBA
[2020-03-15] MEDS ORDERED: Calcium Chloride 13.6 MEQ in Sodium Chloride 0.9% 100 ML IVPB ONE (08:30)
[2020-03-15] MEDS: Polyethylene Glycol 3350 17 GM Packet PER TUBE SCH (09:25)
[2020-03-15] MEDS: Aspirin 81 mg Enteric Coated Tablet PO SCH (09:28)
[2020-03-15] MEDS: Calcium Carbonate 500 MG ChewTAB PO SCH ×3 (09:28→19:33)
[2020-03-15] MEDS: Famotidine/PF 20 mg/2ml Vial SLOW IVP SCH (09:28)
[2020-03-15] MEDS: Insulin Glargine 36 UNITS in Pre-Filled Syringe 1 EACH SC SCH (09:28)
[2020-03-15] MEDS: Cholecalciferol 1,000 UNITS (25 MCG) TAB PO SCH (09:28)
[2020-03-15] MEDS: methylPREDNISolone Sod Succ 40 MG VIAL IVP SCH ×2 (09:29→19:34)
[2020-03-15] MEDS: Allopurinol 300 MG TAB PO SCH (10:23)
[2020-03-15] MEDS: Ezetimibe 10 MG TAB PO SCH (10:23)
--- NOTE | 2020-03-15 10:38 | PRG ---
DATE OF SERVICE: 03/15/2020 SUBJECTIVE: Fei Teague is a 54-year-old gentleman, apparently is little bit more responsive this morning. OBJECTIVE: VITAL SIGNS: His maximum temperature was 98, blood pressure 120/63, pulse 84, sats 100%, and respirations 18. CHEST: Bilateral rhonchi, crackles. CARDIAC: Normal S1, S2. No gallops. ABDOMEN: Soft. LABORATORY DATA: White count 43,000, H and H 7 and 21, platelet count is 87, left shift, 45 segs, 42 bands. PO2 of 82 a rate of 20, 50%. His creatinine is 5, BUN 98. ASSESSMENT: Multiorgan failure. Evidence of pancreatic bleed. It was read as acute pancreatitis. Small to moderate retroperitoneal hemorrhage, appears to be less. Cholelithiasis, bilateral pneumonia, pleural effusion. Coronavirus pneumonia, leukocytosis. We will switch him over to meropenem, add some Diflucan tomorrow. May restart his Lovenox. He has a prosthetic valve. He is going to be dialyzed. His prognosis remains a grave. In the meantime, we will continue steroids, etc. One-half hour of critical care time. Job ID: [id number]
[2020-03-15] MEDS ORDERED: Heparin 10,000 UNITS/ 10 ML VIAL ONE (11:04)
[2020-03-15] MEDS ORDERED: fentaNYL Citrate/PF 2,000 MCG in Sodium Chloride 0.9% 60 ML IV PRN (11:34)
--- NOTE | 2020-03-15 11:44 | PRG ---
DATE OF SERVICE: 03/15/2020 SUBJECTIVE: A 54-year-old gentleman, being seen for end-stage renal disease. The patient is intubated and resting. PHYSICAL EXAMINATION: GENERAL: The patient is resting. VITAL SIGNS: Afebrile, pulse 75, breathing at 16, blood pressure 125/63. HEENT: Head normocephalic and atraumatic. Eyes intact, no ulcers. Nose intact, no ulcers. Ears intact, no ulcers. Neck: Supple. No JVD. Chest: Symmetrical and clear. Cardiovascular: Shows S1 and S2, no rub, no murmur. Gastrointestinal: Abdomen is soft, bowel sounds positive. Extremities: Show no edema or ulcers. Skin: Shows no rash or petechiae. Musculoskeletal: Shows no joint swelling or stiffness. Genitourinary: Shows a Marie catheter present. No CVA tenderness. Neurologic: The patient is resting and has a Marie catheter present. LABORATORY DATA: Show hemoglobin 7.1, potassium 3.3, creatinine 5.37. IMPRESSION AND PLAN: 1. Stage 6 chronic kidney disease with rising creatinine. Plan dialysis. 2. Anemia, transfusion. 3. Hypokalemia. We will use 4K bath. 4. Overall prognosis is poor. No family member was available to meet. Job ID: [id number]
[2020-03-15] MEDS ORDERED: Meropenem 1 GM in Sodium Chloride 0.9% 100 ML IVPB SCH (12:00)
[2020-03-15] MEDS: MEROPENEM 1 GM/50 ML 1 GM in Premix Bag 1 BAG IVPB SCH (13:10)
[2020-03-15] MEDS ORDERED: [UNRECOGNIZED DRUG - OTHER] FS SCH (13:15)
[2020-03-15] MEDS ORDERED: metroNIDAZOLE 500 MG in Premix Bag 1 BAG IVPB SCH (14:00)
--- NOTE | 2020-03-15 15:44 | PDOC.FMACP ---
Advance Care Planning - Problem (1) Respiratory failure requiring intubation Status: Acute Code(s): J96.90 - RESPIRATORY FAILURE, UNSP, UNSP W HYPOXIA OR HYPERCAPNIA (2) Palliative care encounter Status: Acute Code(s): Z51.5 - ENCOUNTER FOR PALLIATIVE CARE (3) LAURA (acute kidney injury) Status: Acute Code(s): N17.9 - ACUTE KIDNEY FAILURE, UNSPECIFIED (4) COVID-19 Status: Acute Code(s): U07.1 - COVID-19 (5) Retroperitoneal hemorrhage Status: Acute Code(s): R58 - HEMORRHAGE, NOT ELSEWHERE CLASSIFIED (6) Pneumonia due to COVID-19 virus Status: Acute Code(s): U07.1 - COVID-19; J12.89 - OTHER VIRAL PNEUMONIA (7) Prosthetic replacement of heart valve Status: Chronic Code(s): Z95.2 - PRESENCE OF PROSTHETIC HEART VALVE - Note Participants: family, 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 Short life review of patient with . The diagnosis, prognosis and goals of care were discussed. Appropriate forms and documentation to accomplish the goals of care were discussed. Transitioned to DNAR All questions were answered. Will revisit Goal of Care in 48 hours with . The Palliative Care Team will continue to assist with completion of any outstanding forms as identified. Please also refer to Omid England RNfield service rep notes in note section Time Spent (mins): 45
--- NOTE | 2020-03-15 17:01 | PRG ---
DATE OF SERVICE: 03/15/2020 SUBJECTIVE: Mr. Teague remains sedated on mechanical ventilator support. I recently saw this patient in surgical consultation for retroperitoneal hemorrhage. He has required a transfusion of 1 unit of packed red blood cells over the last 24 hours. He remains in anuric renal failure requiring hemodialysis. OBJECTIVE: VITAL SIGNS: Today include blood pressure 132/52, pulse 80, respiratory rate 16, temperature is 98.4 degrees Fahrenheit, maximum temperature in last 24 hours is 98.5 degrees Fahrenheit, oxygen saturation 97%. HEENT: Pupils are equal, round, reactive to light bilaterally. He has bilateral scleral edema present. HEART: Reveals regular rate and rhythm. LUNGS: Reveals bibasilar rhonchi. Breathing regular and nonlabored. ABDOMEN: Soft and obese. He has no peritoneal signs on examination. LABORATORY DATA: Today includes a CBC with 43,300 white blood cells, hemoglobin and hematocrit are 7.1 and 21.5 respectively. The platelet count is 87,000. Differential counts as follows, 45 segmented neutrophils, 42% bands, 2 lymphocytes, and 6 monocytes. Arterial blood gas: PH 7.49, pCO2 is 26, PO2 is 96, base excess is negative 3.4, ionized calcium is 1.01. Metabolic profile: Sodium 139, potassium 3.3, chloride is 102, bicarb is 21, BUN is 98, creatinine is 5.37, glucose 118. IMPRESSION: 1. Acute hemorrhagic pancreatitis, stable. 2. Acute respiratory failure. 3. Acute renal failure. 4. Acute hypokalemia. 5. Acute blood loss anemia. PLAN: 1. I agree with transfusion of packed red blood cells. 2. There is no acute surgical indication for this patient's retroperitoneal hemorrhage at this time. 3. I recognize this patient is at increased risk of venous thromboembolism given his history of immobility and especially recent prosthetic heart valve placement. 4. If his hemoglobin remains stable over the next 24 hours, we will consider resumption of anticoagulation hopefully with unfractionated heparin. This will however be with some challenge given the onset of thrombocytopenia, although not at a critical value at this time. Above findings and recommendations discussed with primary service. Job ID: [id number]
[2020-03-15] MEDS: Atorvastatin Calcium 40 MG TAB PO SCH (19:33)
[2020-03-16 04:19] LABS: Hemoglobin 8.3 g/dL (14.0-18.0); Mean Corpuscular HGB CONC 33.3 g/dL (32.0-36.0); Mean Corpuscular Hemoglobin 28.4 pg (27.0-31.0); Mean Corpuscular Volume 85.3 fL (78.0-98.0); Mean Platelet Volume 10.8 fL (7.4-10.4); Platelet Count 76 thou/uL (130-400); RBC Distribution Width 16.4 % (11.5-14.5); Red Blood Cell (RBC) Count 2.91 mill/uL (4.70-6.10); White Blood Cell (WBC) Count 41.1 thou/uL (4.8-10.8)
[2020-03-16 04:39] LABS: Band 10 % (5-11); Hypochromia SLIGHT = 6-15 cells (100X) (0-5/hpf); Lymphocytes 2 % (21-51); MDiff Complete? YES; Monocytes 16 % (0-10); Neutrophil 72 % (42-75); Nucleated RBC 9 % (0); Platelet Morphology Comment Appears Decreased
[2020-03-16 04:42] LABS: Anion Gap 18 mmol/L (10-20); BUN (Urea Nitrogen) 93 mg/dL (8.4-25.7); Calc. Creatinine Clearance 21 mL/min (70-130); Calcium 7.8 mg/dL (7.8-10.44); Carbon Dioxide 23 mmol/L (22-29); Chloride 101 mmol/L (98-107); Estimated GFR-MDRD 12; Glucose 76 mg/dL (70-105); Potassium 3.8 mmol/L (3.5-5.1); Sodium 138 mmol/L (136-145)
[2020-03-16] MEDS: Metoclopramide HCl 10 MG/2 ML VIAL IVP SCH ×3 (06:37→23:31)
--- NOTE | 2020-03-16 06:57 | PDOC.FM ---
- Subjective Subjective: Pt is fairly unchanged from yesterday. Sedation is being weaned and pt is responds to questions, commands. Wendy, common law , stopped by yesterday and made pt DNR. She will come back tomorrow to discuss extubation. He received 2 U prbc's yesterday with dialysis. - Objective Vital Signs & Weight: Vital Signs (12 hours) Temp Pulse Resp Pulse Ox 03/16/20 06:00 98.2 F 16 03/16/20 04:00 16 03/16/20 02:59 79 03/16/20 02:00 16 03/16/20 01:00 98.3 F 03/16/20 00:00 16 03/15/20 22:16 80 03/15/20 22:00 16 03/15/20 20:00 98.0 F 19 99 03/15/20 19:13 93 Weight Admit Weight 102.603 kg Weight 102.5 kg Most Recent Monitor Data Heart Rate from ECG 72 NIBP 118/56 NIBP BP-Mean 76 Respiration from ECG 16 SpO2 100 I&O: 03/14/20 03/15/20 03/16/20 06:59 06:59 06:59 Intake Total 1510.2 1534.8 1819.6 Output Total 1120 940 810 Balance 390.2 594.8 1009.6 Result Diagrams: 03/16/20 04:05 03/16/20 04:05 Phys Exam - Physical Examination Constitutional: NAD HEENT: sclera anicteric intubated Neck: no JVD able to move neck left and right did not appreciate wheezing, rales Cardiovascular: RRR, no significant murmur Gastrointestinal: soft, no distention, positive bowel sounds pitting edema in the LE strength 1/5 in UE/LE Skin: cap refill <2 seconds Dx/Plan (1) COVID-19 Code(s): U07.1 - COVID-19 Status: Acute (2) Retroperitoneal hemorrhage Code(s): R58 - HEMORRHAGE, NOT ELSEWHERE CLASSIFIED Status: Acute (3) LAURA (acute kidney injury) Code(s): N17.9 - ACUTE KIDNEY FAILURE, UNSPECIFIED Status: Acute (4) DM2 (diabetes mellitus, type 2) Status: Chronic Qualifiers: Diabetes mellitus fci insulin use: without fci use Diabetes mellitus complication status: with kidney complications Diabetes mellitus complication detail: with chronic kidney disease Chronic kidney disease stage : stage 3 (moderate) Qualified Code(s): E11.22 - Type 2 diabetes mellitus with diabetic chronic kidney disease; N18.3 - Chronic kidney disease, stage 3 ( moderate) (5) HTN (hypertension) Code(s): I10 - ESSENTIAL (PRIMARY) HYPERTENSION Status: Chronic Qualifiers: Hypertension type: essential hypertension Qualified Code(s): I10 - Essential (primary) hypertension (6) Prosthetic replacement of heart valve Code(s): Z95.2 - PRESENCE OF PROSTHETIC HEART VALVE Status: Chronic - Plan Plan: Patient is a 54M with PMHx of DM2, HTN, gout, HLD, hx of aortic valve replacement, CKD3 admitted for: #Sepsis 2/2 COVID-19 Pnemonia likely vs bacterial pneumonia -continue am labs -continue meropenem, WBC mildly improved; will consider antifungal -currently intubated with sedation weaning - currently responsive to commands, understand simple questions #Acute blood loss anemia vs DIC - s/p 6 U pRBC's; continue to monitor - reassess bleed tomorrow - CT abdomen if pt's does not want to extubate # DIC - monitor platelets - stable - need to resolve initial insult - need to consider risks of anticoagulation in the setting of DIC # Acute Pancreatitis vs Hemorrhagic Pancreas causing lipase elevation - cannot administer fluids - control pain #Leukocytosis - cultures from 03/13 negative - start meropenem, start antifungal if no improvement tomorrow #Acute renal failure -will hold nephrotoxic medications -Nephrology consulted, Dr. Trevino most recently saw the patient outpatient. -Dr. Bray consulted, consulted gen surg for dialysis catheter, placed by Dr. Ames on 03/12 in [facility] -no longer requiring levophed; continue dialysis. Pt is grossly fluid overloaded #Hx of AV valve replacement -on warfarin at home, holding. Held lovenox for bleed - echocardiogram 03/16 to visualize aortic valve, will reassess bleed 03/17 and if not growing will start heparin #Hypotension - resolved - no longer requiring levophed #T2DM -well controlled with long acting 36 U -HSSI #Hypertension -hold home metoprolol -will hold lisinopril 2/2 LAURA #Gout -d/c colchicine, allopurinol #Hyperlipidemia -continue home atorvastatin Code: DNR - discussed with common law Prophylaxis: held Fluids: Held Diet: continue tube feeds at 20 per/hour and will consider TPN Disposition: Inpatient, guarded, CCU. PCP: Dr. Kohli Addendum - Attending - Attending Attestation Date/Time: 03/16/20 4034 I personally evaluated the patient and discussed the management with Dr. Gallego. I agree with the History, Examination, Assessment and Plan documented above with any addition or exceptions noted below. D-dimer increased slightly. WBC decreased slightly. Pt remains gravely ill. The patient is now DNAR. There will be another meeting tomorrow to discuss possible extubating pt. If she doesn't desire extubation, will get repeat CT abdomen. If CT shows decreased bleeding will need anticoagulation due to the prosthetic heart valve understanding that the risk of bleeding again is high.
[2020-03-16 08:12] LABS: Actual Bicarbonate (HCO3a) 21.7 mEq/L (22-28); Base Excess (BEa) -2.5 mEq/L (-2.0 to +3.0); CO2 Tension 35.1 mmHg (35.0-45.0); Calcium, Ionized (arterial) 1.06 mmol/L (1.12-1.30); Carboxyhemoglobin (COHb) 0.6 gm% (0.0-3.0); Hemoglobin (Hb) 9.1 g/dL (14.0-18.0); O2 Tension (PaO2), arterial 97.7 mmHg (80.0-100.0); pH, Arterial 7.41 (7.35-7.45)
[2020-03-16 08:13] LABS: Puncture Site RRA
[2020-03-16 08:14] LABS: ALV-art Gradient 214.925 (0-20)
[2020-03-16] MEDS: methylPREDNISolone Sod Succ 40 MG VIAL IVP SCH ×2 (08:34→20:06)
[2020-03-16] MEDS: Famotidine/PF 20 mg/2ml Vial SLOW IVP SCH (08:34)
[2020-03-16] MEDS: Calcium Carbonate 500 MG ChewTAB PO SCH ×3 (08:35→20:06)
[2020-03-16] MEDS: Aspirin 81 mg Enteric Coated Tablet PO SCH (08:35)
[2020-03-16] MEDS: Polyethylene Glycol 3350 17 GM Packet PER TUBE SCH (08:42)
[2020-03-16] MEDS: Cholecalciferol 1,000 UNITS (25 MCG) TAB PO SCH (08:45)
[2020-03-16] MEDS: Insulin Glargine 36 UNITS in Pre-Filled Syringe 1 EACH SC SCH (08:45)
--- NOTE | 2020-03-16 11:25 | PRG ---
DATE OF SERVICE: 03/16/2020 SUBJECTIVE: A 54-year-old gentleman, being seen for acute kidney injury. Patient is dialysis dependent. PHYSICAL EXAMINATION: GENERAL: Patient is resting. VITAL SIGNS: Afebrile, pulse 75, breathing 16, blood pressure 122/47. HEENT: Head normocephalic and atraumatic. Eyes intact, no ulcers. Nose intact, no ulcers. Ears intact, no ulcers. NECK: Supple. No JVD. CHEST: Symmetrical and clear. CARDIOVASCULAR: Shows S1 and S2, no rub, no murmur. GASTROINTESTINAL: Abdomen is soft, bowel sounds positive. EXTREMITIES: Show no edema or ulcers. SKIN: Shows no rash or petechiae. MUSCULOSKELETAL: Shows no joint swelling or stiffness. GENITOURINARY: Shows no Marie or CVA tenderness. NEUROLOGIC: Patient is resting. LABORATORY DATA: Reviewed. ASSESSMENT AND PLAN: 1. Chronic kidney disease stage 6. Plan dialysis per schedule. 2. Hypertension, stable. 3. Anemia, stable. 4. Uremia. 5. Continue dialysis, medication based on GFR appropriate. 6. Prognosis is poor. Job ID: [id number]
[2020-03-16] MEDS: MEROPENEM 1 GM/50 ML 1 GM in Premix Bag 1 BAG IVPB SCH (11:56)
--- NOTE | 2020-03-16 13:31 | PRG ---
DATE OF SERVICE: 03/16/2020 SUBJECTIVE: This morning, he is intubated on the vent. OBJECTIVE: VITAL SIGNS: Pulse 94, saturations are 98%, blood pressure /80, respiratory rate 16. CHEST: No wheezing. No crackles. CARDIAC: Normal S1, S2. No gallops. ABDOMEN: No masses. LABORATORY DATA: White count 41,000, H and H 8 and 24, platelet count is 76. His blood gas shows PO2 of 97, pCO2 of 35, pH of 7.41, rate of 63%. His chemistry profile, creatinine 5, BUN 98. ASSESSMENT: 1. Multiorgan failure. 2. Pancreatic bleed. 3. Pancreatitis. 4. Respiratory failure. 5. Acute respiratory distress syndrome. 6. Cough. PLAN: The family has decided to make the patient a DNR. He has a prosthetic aortic valve. We are holding anticoagulation at this stage until we decide how much bleed he has. His antibiotic has been changed. He is on meropenem and steroids. Supportive care. His long-term prognosis is grave. We will make a decision in the next [address] hours. Obt[address] echo and CT of his abdomen. In the meantime, we will continue to hold his anticoagulation. CRITICAL CARE TIME: One-half hour of critical time. Job ID: [id number]
[2020-03-16] MEDS: Atorvastatin Calcium 40 MG TAB PO SCH (20:05)
[2020-03-16] MEDS: fentaNYL Citrate/PF 2,000 MCG in Sodium Chloride 0.9% 60 ML IV SCH (23:31)
[2020-03-17 05:08] LABS: Band 14 % (5-11); Hemoglobin 8.3 g/dL (14.0-18.0); Lymphocytes 3 % (21-51); MDiff Complete? YES; Mean Corpuscular HGB CONC 31.7 g/dL (32.0-36.0); Mean Corpuscular Hemoglobin 27.6 pg (27.0-31.0); Mean Platelet Volume 12.6 fL (7.4-10.4); Metamyelocyte 4 % (0-0); Monocytes 6 % (0-10); Neutrophil 73 % (42-75); Nucleated RBC 2 % (0); Platelet Count 87 thou/uL (130-400); Platelet Morphology Comment Appears Decreased; RBC Distribution Width 18.1 % (11.5-14.5); Red Blood Cell (RBC) Count 3.02 mill/uL (4.70-6.10); White Blood Cell (WBC) Count 44.5 thou/uL (4.8-10.8)
[2020-03-17 05:11] LABS: Anion Gap 24 mmol/L (10-20); BUN (Urea Nitrogen) 123 mg/dL (8.4-25.7); Calc. Creatinine Clearance 0 mL/min (70-130); Calcium 7.8 mg/dL (7.8-10.44); Carbon Dioxide 17 mmol/L (22-29); Chloride 101 mmol/L (98-107); Estimated GFR-MDRD 9; Glucose 68 mg/dL (70-105); Potassium 4.6 mmol/L (3.5-5.1); Sodium 137 mmol/L (136-145)
[2020-03-17] MEDS: Metoclopramide HCl 10 MG/2 ML VIAL IVP SCH ×3 (05:35→23:49)
--- NOTE | 2020-03-17 06:21 | PDOC.FM ---
- Subjective Subjective: Pt is responsive to commands. He responds by nodding to yes/no questions. He denies pain. He noted to the nurse that he is tired. - Objective Vital Signs & Weight: Vital Signs (12 hours) Temp Resp Pulse Ox 03/17/20 06:00 98.5 F 16 03/17/20 04:00 16 03/17/20 02:00 98.1 F 16 03/17/20 00:00 16 03/16/20 22:00 98.5 F 16 03/16/20 20:00 16 100 Weight Admit Weight 102.603 kg Weight 103.3 g Most Recent Monitor Data Heart Rate from ECG 98 NIBP 140/79 NIBP BP-Mean 99 Respiration from ECG 18 SpO2 98 I&O: 03/15/20 03/16/20 03/17/20 06:59 06:59 06:59 Intake Total 1534.8 1819.6 513 Output Total 940 810 0 Balance 594.8 1009.6 513 Result Diagrams: 03/17/20 04:00 03/17/20 04:00 Phys Exam - Physical Examination intubated HEENT: PERRLA, sclera anicteric Neck: no JVD, full ROM did not appreciate rales/crackles Cardiovascular: RRR, no significant murmur Gastrointestinal: soft, no distention, positive bowel sounds Musculoskeletal: pulses present 2+ le edema Neurological: moves all 4 limbs Dx/Plan (1) COVID-19 Code(s): U07.1 - COVID-19 Status: Acute (2) Retroperitoneal hemorrhage Code(s): R58 - HEMORRHAGE, NOT ELSEWHERE CLASSIFIED Status: Acute (3) LAURA (acute kidney injury) Code(s): N17.9 - ACUTE KIDNEY FAILURE, UNSPECIFIED Status: Acute (4) DM2 (diabetes mellitus, type 2) Status: Chronic Qualifiers: Diabetes mellitus terminal worker insulin use: without half-way use Diabetes mellitus complication status: with kidney complications Diabetes mellitus complication detail: with chronic kidney disease Chronic kidney disease stage : stage 3 (moderate) Qualified Code(s): E11.22 - Type 2 diabetes mellitus with diabetic chronic kidney disease; N18.3 - Chronic kidney disease, stage 3 ( moderate) (5) HTN (hypertension) Code(s): I10 - ESSENTIAL (PRIMARY) HYPERTENSION Status: Chronic Qualifiers: Hypertension type: essential hypertension Qualified Code(s): I10 - Essential (primary) hypertension (6) Prosthetic replacement of heart valve Code(s): Z95.2 - PRESENCE OF PROSTHETIC HEART VALVE Status: Chronic - Plan Plan: Patient is a 54M with PMHx of DM2, HTN, gout, HLD, hx of aortic valve replacement, CKD3 admitted for problems listed below who is currently in poor condition with a poor prognosis. Family will be in today and we will consider terminal extubation. If family does not wish to proceed with this we will advance with CT abdomen, anticoagulation, and echocardiogram. #Sepsis 2/2 COVID-19 Pnemonia likely vs bacterial pneumonia -continue am labs -continue meropenem, WBC mildly improved, add fluconazole -currently intubated with sedation weaning - currently responsive to commands, understand simple questions -Whitney II score reveals poor prognosis -Family will be in today to reassess extubation #Acute blood loss anemia vs DIC - s/p 6 U pRBC's; continue to monitor - reassess bleed today - CT abdomen if pt's does not want to extubate # Likely DIC - monitor platelets - stable - need to resolve initial insult - need to consider risks of anticoagulation in the setting of DIC # Acute Pancreatitis vs Hemorrhagic Pancreas causing lipase elevation - cannot administer fluids - control pain - Lisa and BISAP score show poor prognosis #Leukocytosis - cultures from 03/13 negative - start meropenem, start antifungal if no improvement tomorrow #Acute renal failure -will hold nephrotoxic medications -Nephrology consulted, Dr. Trevino most recently saw the patient outpatient. -Dr. Bray consulted, consulted gen surg for dialysis catheter, placed by Dr. Ames on 03/12 in [facility] -pt grossly fluid overloaded #Hx of AV valve replacement -on warfarin at home, holding. Held lovenox for bleed - Will reassess bleed 03/17 and if not growing will start heparin - Echo pending #Hypotension - resolved - no longer requiring levophed #T2DM -well controlled with long acting 36 U -HSSI #Hypertension -hold home metoprolol -will hold lisinopril 2/2 LAURA #Gout -d/c colchicine, allopurinol #Hyperlipidemia -continue home atorvastatin Code: DNR - discussed with common law Prophylaxis: held Fluids: Held Diet: continue tube feeds at 20 per/hour and will consider TPN Disposition: guarded, ICU admission PCP: Dr. Kohli Addendum - Attending - Attending Attestation Date/Time: 03/17/20 4946 I personally evaluated the patient and discussed the management with Dr. Gallego. I agree with the History, Examination, Assessment and Plan documented above with any addition or exceptions noted below. The patient opens eyes to his name. His wbc is increased, d-dimer increased. Pt continues to be 3rd spacing. Prognosis is grave. Palliative will be having a family meeting to discuss compassionate extubation. If they decide against this, will get CT abdomen to evaluate the retroperitoneal bleed. This continues to be complicated as pt's heart valve warrants anticoagulation but the bleed warrants stopping. Hb has stabilized which would indicate bleeding stabilized as well.
[2020-03-17] MEDS: Polyethylene Glycol 3350 17 GM Packet PER TUBE SCH (07:18)
[2020-03-17] MEDS: Aspirin 81 mg Enteric Coated Tablet PO SCH (08:09)
[2020-03-17] MEDS: Calcium Carbonate 500 MG ChewTAB PO SCH ×3 (08:09→20:48)
[2020-03-17] MEDS: Insulin Glargine 36 UNITS in Pre-Filled Syringe 1 EACH SC SCH ×2 (08:10→09:30)
[2020-03-17] MEDS: Cholecalciferol 1,000 UNITS (25 MCG) TAB PO SCH (08:10)
[2020-03-17] MEDS: Famotidine/PF 20 mg/2ml Vial SLOW IVP SCH (08:10)
[2020-03-17] MEDS: methylPREDNISolone Sod Succ 40 MG VIAL IVP SCH ×2 (08:11→20:48)
[2020-03-17 08:33] LABS: Actual Bicarbonate (HCO3a) 18.3 mEq/L (22-28); Base Excess (BEa) -6.4 mEq/L (-2.0 to +3.0); Calcium, Ionized (arterial) 1.03 mmol/L (1.12-1.30); Carboxyhemoglobin (COHb) 0.1 gm% (0.0-3.0); Hemoglobin (Hb) 8.3 g/dL (14.0-18.0); O2 Tension (PaO2), arterial 86.3 mmHg (80.0-100.0); Potassium - ABG Lab 4.62 mmol/L (3.70-5.30); pH, Arterial 7.36 (7.35-7.45)
[2020-03-17 08:36] LABS: Puncture Site RRA
[2020-03-17] MEDS ORDERED: Colchicine 0.6 MG TAB PO SCH (09:00)
--- NOTE | 2020-03-17 10:16 | PRG ---
DATE OF SERVICE: 03/17/2020 SUBJECTIVE: This morning, he remains intubated in the vent, sedated. He is responsive, opens eyes, moves extremities. OBJECTIVE: VITAL SIGNS: Pulse 82, blood pressure 130/56, 45% FiO2, sats 100%, temperature 98. CHEST: No wheezing. No crackles. CARDIAC: Normal S1, S2. No gallops. ABDOMEN: No masses. LABORATORY DATA: White count remains elevated at 44,000. H and H of 8 and 26, platelet count 87. BUN and creatinine 123 and 7.5. PO2 of 86, pCO2 of 34, pH 7.36, PEEP of 8, 45% IMPRESSION: 1. Respiratory failure. 2. Cornell positive pneumonia. 3. Prosthetic aortic valve. 4. Renal failure. 5. Shock. 6. Pancreatic bleed. 7. Pancreatitis. PLAN: CT of abdomen is ordered today to assess the extent of his bleed, whether it is worsening. He may have to be restarted on his anticoagulation because of his prosthetic valve. Prognosis is grave. Family is deciding about ongoing treatment and care. TIME SPENT: One-half hour of critical care time. Job ID: [id number]
[2020-03-17] MEDS: MEROPENEM 1 GM/50 ML 1 GM in Premix Bag 1 BAG IVPB SCH (11:01)
--- NOTE | 2020-03-17 11:05 | PRG ---
DATE OF SERVICE: 03/17/2020 SUBJECTIVE: A 54-year-old gentleman being seen for end-stage renal disease. The patient is resting. OBJECTIVE: GENERAL: The patient is resting. VITAL SIGNS: Afebrile, pulse 82, breathing at 16, blood pressure 135/78. HEENT: Head normocephalic and atraumatic. Eyes intact, no ulcers. Nose intact, no ulcers. Ears intact, no ulcers. NECK: Supple. No JVD. CHEST: Symmetrical and clear. CARDIOVASCULAR: Shows S1 and S2, no rub, no murmur. GASTROINTESTINAL: Abdomen is soft, bowel sounds positive. EXTREMITIES: Show no edema or ulcers. SKIN: Shows no rash or petechiae. MUSCULOSKELETAL: Shows no joint swelling or stiffness. GENITOURINARY: Shows no Marie or CVA tenderness. NEUROLOGIC: Motor intact. Cranial nerves intact. LABS: Show hemoglobin 8.3. Creatinine 7.5. ASSESSMENT AND PLAN: 1. Chronic kidney disease, stage 6. The patient is probably going to be on hospice. Dialysis will be discussed with the family. 2. Anemia, stable. 3. Medication based on GFR appropriate. 4. Multiorgan failure. Overall prognosis is poor. Job ID: [id number]
--- NOTE | 2020-03-17 16:35 | PDOC.PALPN ---
Palliative Progress Note - Subjective Mechanical ventilation, opens eyes, able to make eye contact and nod head, unable to fully appreciated orientation. - Objective Vital Signs: Vital Signs - Most Recent Temp Pulse Resp BP Pulse Ox 98.2 F 83 16 159/76 H 100 03/17/20 12:00 03/17/20 15:09 03/17/20 14:00 03/17/20 13:34 03/17/20 08:00 - Physical Exam Constitutional: ill appearing HEENT: EOMI, moist MMs, sclera anicteric Respiratory: no wheezing, diminished lung sound Deviation from normal: Mechanical Ventilation Cardiovascular: RRR Gastrointestinal: incontinent Genitourinary: vallejo catheter Musculoskeletal: no clubbing, edema present Neurology: no focal deficits Skin: cap refill <2 seconds, no rash Deviation from normal: Arousable - Assessment (1) Respiratory failure requiring intubation Code(s): J96.90 - RESPIRATORY FAILURE, UNSP, UNSP W HYPOXIA OR HYPERCAPNIA Status: Acute (2) Palliative care encounter Code(s): Z51.5 - ENCOUNTER FOR PALLIATIVE CARE Status: Acute (3) LAURA (acute kidney injury) Code(s): N17.9 - ACUTE KIDNEY FAILURE, UNSPECIFIED Status: Acute (4) COVID-19 Code(s): U07.1 - COVID-19 Status: Acute (5) Retroperitoneal hemorrhage Code(s): R58 - HEMORRHAGE, NOT ELSEWHERE CLASSIFIED Status: Acute (6) Pneumonia due to COVID-19 virus Code(s): U07.1 - COVID-19; J12.89 - OTHER VIRAL PNEUMONIA Status: Acute (7) Prosthetic replacement of heart valve Code(s): Z95.2 - PRESENCE OF PROSTHETIC HEART VALVE Status: Chronic - Plan Plan: Family meeting with Wendy Palliative Care, Kamar Sarmiento Spiritual Care. Life review of patient. They have been together since high school. Discussed his current health status and multiple contributing factors to poor prognosis. Discussed "what he would want". She expressed he would not desire a Trach/Peg. Reviewed compassionate extubation and comfort measures. Emotional support and therapeutic listening. Spiritual care supporting patient. [35] minutes spent on this encounter with >50% of the time in counseling and coordination of care. - ROS Non Response: due to endotracheal tube
[2020-03-17] MEDS: Fluconazole In NaCl,Iso-Osm 100 MG, Admixture Fee 1 EACH in Premix Bag 1 BAG IVPB SCH (17:08)
[2020-03-17] MEDS: HumaLOG 300 UNITS/3 ML VIAL SC PRN (17:09)
[2020-03-17] MEDS: Atorvastatin Calcium 40 MG TAB PO SCH (20:48)
[2020-03-18 05:34] LABS: Anion Gap 25 mmol/L (10-20); Calc. Creatinine Clearance 0 mL/min (70-130); Calcium 7.9 mg/dL (7.8-10.44); Carbon Dioxide 17 mmol/L (22-29); Chloride 98 mmol/L (98-107); Estimated GFR-MDRD 7; Glucose 126 mg/dL (70-105); Potassium 4.9 mmol/L (3.5-5.1); Sodium 135 mmol/L (136-145)
[2020-03-18 05:45] LABS: BUN (Urea Nitrogen) 153 mg/dL (8.4-25.7)
[2020-03-18 05:51] LABS: Anisocytosis MODERATE=16-30 cells (100X) (0-5/hpf); Band 8 % (5-11); Lymphocytes 2 % (21-51); MDiff Complete? YES; Mean Corpuscular HGB CONC 31.8 g/dL (32.0-36.0); Mean Corpuscular Hemoglobin 28.3 pg (27.0-31.0); Mean Corpuscular Volume 88.8 fL (78.0-98.0); Metamyelocyte 1 % (0-0); Monocytes 6 % (0-10); Neutrophil 83 % (42-75); Nucleated RBC 1 % (0); Platelet Count 94 thou/uL (130-400); Platelet Morphology Comment Appears Decreased; Poikilocytosis SLIGHT = 6-15 cells (100X) (0-5/hpf); Polychromasia MARKED = >4 cells (100X) (0-2/hpf); RBC Distribution Width 19.7 % (11.5-14.5); Red Blood Cell (RBC) Count 2.83 mill/uL (4.70-6.10); White Blood Cell (WBC) Count 41.6 thou/uL (4.8-10.8)
--- NOTE | 2020-03-18 06:30 | PDOC.FM ---
- Subjective Subjective: Intubated. Denies pain with yes/no questions. Unsure of how lucid patient is but responsive and follows commands. - Objective Vital Signs & Weight: Vital Signs (12 hours) Temp Pulse Resp BP Pulse Ox 03/18/20 02:45 76 119/58 L 03/18/20 02:00 16 03/18/20 00:00 97.9 F 16 03/17/20 22:54 84 154/58 H 03/17/20 22:00 16 03/17/20 20:00 98.4 F 16 100 03/17/20 18:45 76 157/79 H Weight Admit Weight 102.603 kg Weight 103.3 g Most Recent Monitor Data Heart Rate from ECG 74 NIBP 119/58 NIBP BP-Mean 78 Respiration from ECG 16 SpO2 100 I&O: 03/16/20 03/17/20 03/18/20 06:59 06:59 06:59 Intake Total 1819.6 513 799.6 Output Total 810 0 45 Balance 1009.6 513 754.6 Result Diagrams: 03/18/20 05:00 03/18/20 05:00 Phys Exam - Physical Examination Currently intubated w/o distress HEENT: PERRLA, sclera anicteric Neck: no JVD, full ROM did not appreciate significant wheezing, rales, rhonchi He is not breathing for himself on the machine Cardiovascular: RRR, no significant murmur Gastrointestinal: soft, positive bowel sounds 1+ LE edema, 2-3+ UE edema Dx/Plan (1) COVID-19 Code(s): U07.1 - COVID-19 Status: Acute (2) Retroperitoneal hemorrhage Code(s): R58 - HEMORRHAGE, NOT ELSEWHERE CLASSIFIED Status: Acute (3) LAURA (acute kidney injury) Code(s): N17.9 - ACUTE KIDNEY FAILURE, UNSPECIFIED Status: Acute (4) DM2 (diabetes mellitus, type 2) Status: Chronic Qualifiers: Diabetes mellitus senior care insulin use: without senior care use Diabetes mellitus complication status: with kidney complications Diabetes mellitus complication detail: with chronic kidney disease Chronic kidney disease stage : stage 3 (moderate) Qualified Code(s): E11.22 - Type 2 diabetes mellitus with diabetic chronic kidney disease; N18.3 - Chronic kidney disease, stage 3 ( moderate) (5) HTN (hypertension) Code(s): I10 - ESSENTIAL (PRIMARY) HYPERTENSION Status: Chronic Qualifiers: Hypertension type: essential hypertension Qualified Code(s): I10 - Essential (primary) hypertension (6) Prosthetic replacement of heart valve Code(s): Z95.2 - PRESENCE OF PROSTHETIC HEART VALVE Status: Chronic - Plan Plan: Pt is a 54 yo male here for acute respiratory failure 2/2 COVID pneumonia, retroperitoneal bleed, acute kidney failure, and hx of AVR: # Cardiovascular - currently normotensive - significant third spacing - currently no anticoagulation for his AVR # Pulmonary: - continue intubation with minimal sedation - vent is breathing for patient # GI - retroperitoneal bleed in the setting of likely pancreatitis with the bleeding inflaming pancreatic tissue. Unable to fluid rescucitate. Will monitor at this time and pt denies pain. - have no ordered repeat CT abdomen - will discuss with today. She did not pickling solution maker phone today. - continue tube feeds # Renal - dialysis today. Will discuss with if she wants these measures for the future # Hematologic Anemia and thrombocytopenia - Hgb and platelets are stable. s/p 6 U rbc's likely secondary to acute blood loss vs DIC. He is not currently on anticoagulation due to his bleed but is at high risk for thrombotic events and has a valve replacement requiring coagulation. # Infectious Disease - markedly elevated WBC - continue fluconazole and meropenem # F/E/N - fluid overloaded requiring dialysis - electrolyte replacement protocol - continue tube feeds Dispo: need to discuss with family continued care as he still needs dialysis and considering a CT abdomen. Continue dialysis at this time but hold CT abdomen and anti-coagulation. Family is considering extubation but not until next week. Will discuss this family as well. Addendum - Attending - Attending Attestation Date/Time: 03/18/20 6442 I personally evaluated the patient and discussed the management with Dr. Gallego. I agree with the History, Examination, Assessment and Plan documented above with any addition or exceptions noted below. Patient remains critical. Will continue discussions with family. Currently it appears they plan to extube next Saturday. Will verify this. Holding off on CT abd/pelvis unless family wants it done as it will not change mgmt if the plan is for compassionate extubation.
[2020-03-18] MEDS: Metoclopramide HCl 10 MG/2 ML VIAL IVP SCH ×4 (06:45→19:46)
[2020-03-18] MEDS: fentaNYL Citrate/PF 2,000 MCG in Sodium Chloride 0.9% 60 ML IV SCH (07:13)
[2020-03-18 07:43] LABS: Actual Bicarbonate (HCO3a) 16.7 mEq/L (22-28); Base Excess (BEa) -8.1 mEq/L (-2.0 to +3.0); CO2 Tension 30.6 mmHg (35.0-45.0); Calcium, Ionized (arterial) 1.02 mmol/L (1.12-1.30); Carboxyhemoglobin (COHb) 1.5 gm% (0.0-3.0); Hemoglobin (Hb) 6.6 g/dL (14.0-18.0); Potassium - ABG Lab 5.29 mmol/L (3.70-5.30); pH, Arterial 7.35 (7.35-7.45)
[2020-03-18 08:25] LABS: O2 Tension (PaO2), arterial 80.3 mmHg (80.0-100.0); Puncture Site RBRACH
[2020-03-18] MEDS: methylPREDNISolone Sod Succ 40 MG VIAL IVP SCH ×2 (09:50→19:44)
[2020-03-18] MEDS: Famotidine/PF 20 mg/2ml Vial SLOW IVP SCH (09:51)
[2020-03-18] MEDS: Aspirin 81 mg Enteric Coated Tablet PO SCH (09:52)
[2020-03-18] MEDS: Calcium Carbonate 500 MG ChewTAB PO SCH ×3 (09:52→19:43)
[2020-03-18] MEDS: Insulin Glargine 36 UNITS in Pre-Filled Syringe 1 EACH SC SCH (09:53)
[2020-03-18] MEDS: Polyethylene Glycol 3350 17 GM Packet PER TUBE SCH (09:53)
[2020-03-18] MEDS: Ergocalciferol 1.25 MG(50,000 UNITS) CAP PO SCH (09:59)
[2020-03-18] MEDS: Cholecalciferol 1,000 UNITS (25 MCG) TAB PO SCH (09:59)
[2020-03-18] MEDS ORDERED: Heparin 10,000 UNITS/ 10 ML VIAL ONE (10:57)
--- NOTE | 2020-03-18 10:59 | PRG ---
DATE OF SERVICE: 03/18/2020 SUBJECTIVE: A 54-year-old gentleman being seen for end-stage renal disease. OBJECTIVE: GENERAL: The patient is resting. VITAL SIGNS: Afebrile. Pulse 75, breathing 16, blood pressure HEENT: Head normocephalic and atraumatic. Eyes intact, no ulcers. Nose intact, no ulcers. Ears intact, no ulcers. NECK: Supple. No JVD. CHEST: Symmetrical and clear. CARDIOVASCULAR: Shows S1 and S2, no rub, no murmur. GASTROINTESTINAL: Abdomen is soft, bowel sounds positive. EXTREMITIES: Show no edema or ulcers. SKIN: Shows no rash or petechiae. MUSCULOSKELETAL: Shows no joint swelling or stiffness. GENITOURINARY: Shows no Marie or CVA tenderness. NEUROLOGIC: Motor intact. Cranial nerves intact. LABORATORY DATA: Reviewed. ASSESSMENT: 1. Stage 6 chronic kidney disease. Plan dialysis. 2. Hypertension, stable. 3. Anemia, stable. 4. Overall prognosis is poor. 5. Uremia. Plan dialysis. Job ID: [id number]
[2020-03-18] MEDS: HumaLOG 300 UNITS/3 ML VIAL SC PRN (11:00)
--- NOTE | 2020-03-18 11:10 | PRG ---
DATE OF SERVICE: 03/18/2020 SUBJECTIVE: A 54-year-old gentleman, intubated, vented, and sedated. OBJECTIVE: VITAL SIGNS: His sats 100%, pulse 84, 45% FiO2, and blood pressure 99/93. CHEST: No rhonchi or crackles. CARDIAC: Normal S1 and S2. ABDOMEN: Distended, soft. LABORATORY DATA: PO2 is 80, pCO2 of 30, pH 7.35 on a PEEP of 8, 45%, respiratory rate 16. BUN and creatinine markedly elevated at 153 and 9.4 respectively. LABORATORY DATA: White count 41,000 and his platelet count 94. IMPRESSION: 1. Multiorgan failure. 2. Cornell-positive pneumonia, respiratory failure. 3. Renal failure. 4. Pancreatitis with presumed hemorrhage. I am told he is very DNR. Additionally, family is going to decide about compassionate extubation on Saturday. It is unclear they want a CT of his chest. We are still going to hold off any anticoagulation for the time being. Continue nutrition as tolerated. CRITICAL CARE TIME: One-half hour of critical time. Job ID: [id number]
[2020-03-18] MEDS: MEROPENEM 1 GM/50 ML 1 GM in Premix Bag 1 BAG IVPB SCH (11:38)
[2020-03-18] MEDS: Fluconazole In NaCl,Iso-Osm 100 MG, Admixture Fee 1 EACH in Premix Bag 1 BAG IVPB SCH (14:55)
[2020-03-18] MEDS: Atorvastatin Calcium 40 MG TAB PO SCH (19:43)
[2020-03-19] MEDS: fentaNYL Citrate/PF 2,000 MCG in Sodium Chloride 0.9% 60 ML IV SCH ×2 (00:23→16:51)
[2020-03-19] MEDS: HumaLOG 300 UNITS/3 ML VIAL SC PRN ×3 (01:58→21:19)
[2020-03-19 05:38] LABS: Anion Gap 21 mmol/L (10-20); Calc. Creatinine Clearance 18 mL/min (70-130); Calcium 7.7 mg/dL (7.8-10.44); Carbon Dioxide 21 mmol/L (22-29); Chloride 99 mmol/L (98-107); Estimated GFR-MDRD 9; Glucose 122 mg/dL (70-105); Potassium 5.2 mmol/L (3.5-5.1); Sodium 136 mmol/L (136-145)
[2020-03-19 05:52] LABS: BUN (Urea Nitrogen) 115 mg/dL (8.4-25.7)
[2020-03-19 06:05] LABS: Anisocytosis SLIGHT = 6-15 cells (100X) (0-5/hpf); Band 20 % (5-11); Hemoglobin 7.2 g/dL (14.0-18.0); Hypochromia SLIGHT = 6-15 cells (100X) (0-5/hpf); Lymphocytes 1 % (21-51); MDiff Complete? YES; Mean Corpuscular HGB CONC 31.9 g/dL (32.0-36.0); Mean Corpuscular Hemoglobin 28.2 pg (27.0-31.0); Mean Corpuscular Volume 88.3 fL (78.0-98.0); Mean Platelet Volume 9.8 fL (7.4-10.4); Metamyelocyte 5 % (0-0); Monocytes 6 % (0-10); Myelocyte 1 % (0-0); Neutrophil 67 % (42-75); Nucleated RBC 3 % (0); Platelet Count 75 thou/uL (130-400); Platelet Morphology Comment Appears Decreased; Polychromasia MODERATE = 3-4 cells (100X) (0-2/hpf); RBC Distribution Width 20.2 % (11.5-14.5); Red Blood Cell (RBC) Count 2.54 mill/uL (4.70-6.10); White Blood Cell (WBC) Count 30.3 thou/uL (4.8-10.8)
[2020-03-19] MEDS: Metoclopramide HCl 10 MG/2 ML VIAL IVP SCH ×3 (06:27→19:25)
--- NOTE | 2020-03-19 06:30 | PDOC.FM ---
- Subjective Subjective: Intubated w/o sedation. Following commands. Answering yes/no questions. Does not want ET tube in any longer. - Objective Vital Signs & Weight: Vital Signs (12 hours) Temp Pulse Resp BP Pulse Ox 03/19/20 06:00 16 03/19/20 04:00 97.9 F 16 03/19/20 02:34 71 179/55 H 03/19/20 02:00 16 03/19/20 00:00 16 03/18/20 23:00 98.3 F 03/18/20 22:16 81 178/57 H 03/18/20 22:00 16 03/18/20 20:00 16 100 03/18/20 19:00 98.0 F 03/18/20 18:58 77 184/65 H Weight Admit Weight 102.603 kg Weight 110.5 g Most Recent Monitor Data Heart Rate from ECG 77 NIBP 140/61 NIBP BP-Mean 87 Respiration from ECG 18 SpO2 100 I&O: 03/17/20 03/18/20 03/19/20 06:59 06:59 06:59 Intake Total 513 1245.6 573 Output Total 0 150 50 Balance 513 1095.6 523 Result Diagrams: 03/19/20 04:00 03/19/20 11:16 Phys Exam - Physical Examination Constitutional: NAD HEENT: sclera anicteric Neck: no JVD, full ROM did not appreciate signicant wheezing, rales, rhonchi Cardiovascular: RRR, no significant murmur Gastrointestinal: soft, non-tender, positive bowel sounds Musculoskeletal: pulses present 1+ LE edema, 3+ pitting edema in UE Dx/Plan (1) COVID-19 Code(s): U07.1 - COVID-19 Status: Acute (2) Retroperitoneal hemorrhage Code(s): R58 - HEMORRHAGE, NOT ELSEWHERE CLASSIFIED Status: Acute (3) LAURA (acute kidney injury) Code(s): N17.9 - ACUTE KIDNEY FAILURE, UNSPECIFIED Status: Acute (4) DM2 (diabetes mellitus, type 2) Status: Chronic Qualifiers: Diabetes mellitus terminal manager insulin use: without terminal manager use Diabetes mellitus complication status: with kidney complications Diabetes mellitus complication detail: with chronic kidney disease Chronic kidney disease stage : stage 3 (moderate) Qualified Code(s): E11.22 - Type 2 diabetes mellitus with diabetic chronic kidney disease; N18.3 - Chronic kidney disease, stage 3 ( moderate) (5) HTN (hypertension) Code(s): I10 - ESSENTIAL (PRIMARY) HYPERTENSION Status: Chronic Qualifiers: Hypertension type: essential hypertension Qualified Code(s): I10 - Essential (primary) hypertension (6) Prosthetic replacement of heart valve Code(s): Z95.2 - PRESENCE OF PROSTHETIC HEART VALVE Status: Chronic - Plan Plan: Pt is a 54 yo male here for acute respiratory failure 2/2 COVID pneumonia, retroperitoneal bleed, acute kidney failure, and hx of AVR: # Cardiovascular - currently hypertensive - add hydralazine prn. Likely 2/2 fluid overload. - significant third spacing - currently no anticoagulation for his AVR # Pulmonary: - continue intubation with minimal sedation - vent is breathing for patient # GI - retroperitoneal bleed in the setting of likely pancreatitis with the bleeding inflaming pancreatic tissue. Unable to fluid rescucitate. Will monitor at this time and pt denies pain. - have not ordered repeat CT abdomen - will discuss with today. She did not merchandise pickup/receiving associate phone today. - continue tube feeds # Renal - dialysis today. Will discuss with if she wants these measures for the future # Hematologic Anemia and thrombocytopenia - Hgb and platelets are stable. s/p 6 U rbc's likely secondary to acute blood loss vs DIC. He is not currently on anticoagulation due to his bleed but is at high risk for thrombotic events and has a valve replacement requiring coagulation. # Infectious Disease - elevated WBC - continue fluconazole and meropenem # F/E/N - fluid overloaded requiring dialysis - electrolyte replacement protocol - continue tube feeds Dispo: No change from yesterday. need to discuss with family continued care as he still needs dialysis and considering a CT abdomen. Continue dialysis at this time but hold CT abdomen and anti-coagulation. Family is considering extubation but not until next week. Will discuss this family as well but have not been able to reach. Addendum - Attending - Attending Attestation Date/Time: 03/19/20 0580 I personally evaluated the patient and discussed the management with Dr. Gallego. I agree with the History, Examination, Assessment and Plan documented above with any addition or exceptions noted below. Pt again shook his head to indicate he wants to be extubated. Dr. Gallego and palliative care were not able to get the family on the phone yesterday. Will try again today. We are operating on the assumption that pt will be extubated on Saturday per family wishes. Continue supportive care.
[2020-03-19 08:05] LABS: Actual Bicarbonate (HCO3a) 19.7 mEq/L (22-28); Base Excess (BEa) -4.5 mEq/L (-2.0 to +3.0); CO2 Tension 32.5 mmHg (35.0-45.0); Calcium, Ionized (arterial) 1.03 mmol/L (1.12-1.30); Carboxyhemoglobin (COHb) 0.5 gm% (0.0-3.0); Hemoglobin (Hb) 7.6 g/dL (14.0-18.0); Potassium - ABG Lab 5.31 mmol/L (3.70-5.30)
[2020-03-19] MEDS: Famotidine/PF 20 mg/2ml Vial SLOW IVP SCH (08:19)
[2020-03-19] MEDS: Aspirin 81 mg Enteric Coated Tablet PO SCH (08:20)
[2020-03-19] MEDS: Cholecalciferol 1,000 UNITS (25 MCG) TAB PO SCH (08:20)
[2020-03-19] MEDS: Calcium Carbonate 500 MG ChewTAB PO SCH ×3 (08:20→19:20)
[2020-03-19] MEDS: methylPREDNISolone Sod Succ 40 MG VIAL IVP SCH ×2 (08:20→19:20)
[2020-03-19] MEDS: Insulin Glargine 36 UNITS in Pre-Filled Syringe 1 EACH SC SCH (08:21)
[2020-03-19] MEDS: Polyethylene Glycol 3350 17 GM Packet PER TUBE SCH (08:22)
[2020-03-19 08:23] LABS: O2 Tension (PaO2), arterial 58.9 mmHg (80.0-100.0)
[2020-03-19 08:24] LABS: ALV-art Gradient 221.325 (0-20); Puncture Site RBRACH
[2020-03-19] MEDS ORDERED: hydrALAZINE 20 MG/ML VIAL SLOW IVP PRN (10:15)
[2020-03-19] MEDS: MEROPENEM 1 GM/50 ML 1 GM in Premix Bag 1 BAG IVPB SCH (11:06)
[2020-03-19 11:44] LABS: Anion Gap 21 mmol/L (10-20); Calc. Creatinine Clearance 0 mL/min (70-130); Calcium 7.6 mg/dL (7.8-10.44); Carbon Dioxide 21 mmol/L (22-29); Chloride 99 mmol/L (98-107); Estimated GFR-MDRD 8; Glucose 127 mg/dL (70-105); Potassium 5.4 mmol/L (3.5-5.1); Sodium 136 mmol/L (136-145)
[2020-03-19 11:56] LABS: BUN (Urea Nitrogen) 123 mg/dL (8.4-25.7)
[2020-03-19] MEDS: niCARdipine 25 MG in Sodium Chloride 0.9% 250 ML 240 ML IVPB PRN ×2 (13:37→16:52)
[2020-03-19] MEDS: Fluconazole In NaCl,Iso-Osm 100 MG, Admixture Fee 1 EACH in Premix Bag 1 BAG IVPB SCH (13:50)
--- NOTE | 2020-03-19 15:02 | PRG ---
DATE OF SERVICE: 03/19/2020 SUBJECTIVE: Fei Teague remains mechanically ventilated. Apparently, there will be a family meeting on Saturday to discuss ongoing care. He has been hypertensive. I have recommended that Cardene be restarted. OBJECTIVE: LUNGS: Unchanged. HEART: Unchanged. ABDOMEN: Unchanged. LABORATORY DATA: White count 30, hemoglobin 7.2, platelets 75,000. Sodium 136, potassium 5.4, chloride 99, bicarb 21, BUN 123, creatinine 8.25. IMPRESSION: 1. Respiratory failure with COVID pneumonia. 2. History of prosthetic aortic valve. 3. Renal failure. 4. Pancreatic and retroperitoneal bleed. He appears to be stable, but at this point, not easily weanable from mechanical ventilation. Blood gas today shows pH 7.4, CO2 of 32, pO2 of 58, FiO2 is down to 45%, PEEP is down to 8, so he may be making some progress. He still might survive, but he has a lot of things stacked against him. His age may be the only thing that gets him through this if he survives. Critical care time 30 min. Job ID: [id number] MTDD
--- NOTE | 2020-03-19 16:52 | PRG ---
DATE OF SERVICE: 03/19/2020 SUBJECTIVE: A 54-year-old gentleman being seen for acute kidney injury. The patient is intubated, resting. OBJECTIVE: GENERAL: The patient is resting. VITAL SIGNS: Afebrile. Pulse 68, breathing 16, blood pressure 198/66. HEENT: Head normocephalic and atraumatic. Eyes intact, no ulcers. Nose intact, no ulcers. Ears intact, no ulcers. NECK: Supple. No JVD. CHEST: Symmetrical and clear. CARDIOVASCULAR: Shows S1 and S2, no rub, no murmur. GASTROINTESTINAL: Abdomen is soft, bowel sounds positive. EXTREMITIES: Show no edema or ulcers. SKIN: Shows no rash or petechiae. MUSCULOSKELETAL: Shows no joint swelling or stiffness. GENITOURINARY: Shows no Marie or CVA tenderness. NEUROLOGIC: Motor intact. Cranial nerves intact. LABORATORY DATA: Labs showed hemoglobin 7.2. Potassium 5.4. ASSESSMENT AND PLAN: 1. Stage 6 chronic kidney disease with hyperkalemia. Plan dialysis. 2. Hyperkalemia. Plan dialysis. The patient's potassium is rising, being most likely because of some sort of internal bleeding otherwise. 3. Prognosis is poor. I would recommend ethics consultation. Job ID: [id number]
[2020-03-19] MEDS: Atorvastatin Calcium 40 MG TAB PO SCH (19:19)
[2020-03-20 05:29] LABS: Anion Gap 22 mmol/L (10-20); BUN (Urea Nitrogen) 114 mg/dL (8.4-25.7); Calc. Creatinine Clearance 0 mL/min (70-130); Calcium 8.6 mg/dL (7.8-10.44); Carbon Dioxide 22 mmol/L (22-29); Chloride 97 mmol/L (98-107); Estimated GFR-MDRD 11; Glucose 113 mg/dL (70-105); Sodium 136 mmol/L (136-145)
[2020-03-20 05:58] LABS: Anisocytosis MODERATE=16-30 cells (100X) (0-5/hpf); Band 11 % (5-11); Hemoglobin 8.8 g/dL (14.0-18.0); Large Platelets SLIGHT; Lymphocytes 6 % (21-51); MDiff Complete? YES; Mean Corpuscular HGB CONC 30.9 g/dL (32.0-36.0); Mean Corpuscular Hemoglobin 27.7 pg (27.0-31.0); Mean Corpuscular Volume 89.5 fL (78.0-98.0); Mean Platelet Volume 10.8 fL (7.4-10.4); Monocytes 1 % (0-10); Neutrophil 82 % (42-75); Nucleated RBC 5 % (0); Platelet Count 103 thou/uL (130-400); Platelet Morphology Comment Appears Decreased; Polychromasia MODERATE = 3-4 cells (100X) (0-2/hpf); Red Blood Cell (RBC) Count 3.18 mill/uL (4.70-6.10); Target Cells SLIGHT = 2-5 cells (100X) (0-1/hpf); White Blood Cell (WBC) Count 37.5 thou/uL (4.8-10.8)
[2020-03-20] MEDS: Metoclopramide HCl 10 MG/2 ML VIAL IVP SCH ×3 (06:17→21:01)
[2020-03-20] MEDS: niCARdipine 25 MG in Sodium Chloride 0.9% 250 ML 240 ML IVPB PRN (06:17)
--- NOTE | 2020-03-20 06:26 | PDOC.FM ---
- Subjective Subjective: Intubated with minimal sedation. Aware of situation. - Objective Vital Signs & Weight: Vital Signs (12 hours) Temp Pulse Resp BP Pulse Ox 03/20/20 06:00 16 03/20/20 05:00 98.1 F 03/20/20 04:00 16 03/20/20 02:31 68 176/54 H 03/20/20 00:00 98.3 F 16 03/19/20 22:42 63 149/53 H 03/19/20 22:00 16 03/19/20 20:00 17 03/19/20 19:53 100 03/19/20 19:00 98.1 F 03/19/20 18:44 65 167/53 H Weight Admit Weight 102.603 kg Weight 114.3 g Most Recent Monitor Data Heart Rate from ECG 69 NIBP 118/48 NIBP BP-Mean 71 Respiration from ECG 16 SpO2 100 I&O: 03/18/20 03/19/20 03/20/20 06:59 06:59 06:59 Intake Total 1245.6 573 1228 Output Total 150 50 30 Balance 1095.6 523 1198 Result Diagrams: 03/20/20 04:00 03/20/20 04:00 Phys Exam - Physical Examination Constitutional: NAD HEENT: PERRLA, sclera anicteric Neck: no JVD, full ROM Respiratory: no wheezing, clear to auscultation bilateral Cardiovascular: RRR, no significant murmur Gastrointestinal: soft, no distention, positive bowel sounds trace LE edema; significant upper extremity, facial edema Skin: no rash Deviation from normal: significant blistering Dx/Plan (1) COVID-19 Code(s): U07.1 - COVID-19 Status: Acute (2) Retroperitoneal hemorrhage Code(s): R58 - HEMORRHAGE, NOT ELSEWHERE CLASSIFIED Status: Acute (3) LAURA (acute kidney injury) Code(s): N17.9 - ACUTE KIDNEY FAILURE, UNSPECIFIED Status: Acute (4) DM2 (diabetes mellitus, type 2) Status: Chronic Qualifiers: Diabetes mellitus laborer marine terminal insulin use: without laborer marine terminal use Diabetes mellitus complication status: with kidney complications Diabetes mellitus complication detail: with chronic kidney disease Chronic kidney disease stage : stage 3 (moderate) Qualified Code(s): E11.22 - Type 2 diabetes mellitus with diabetic chronic kidney disease; N18.3 - Chronic kidney disease, stage 3 ( moderate) (5) HTN (hypertension) Code(s): I10 - ESSENTIAL (PRIMARY) HYPERTENSION Status: Chronic Qualifiers: Hypertension type: essential hypertension Qualified Code(s): I10 - Essential (primary) hypertension (6) Prosthetic replacement of heart valve Code(s): Z95.2 - PRESENCE OF PROSTHETIC HEART VALVE Status: Chronic - Plan Plan: Pt is a 54 yo male here for acute respiratory failure 2/2 COVID pneumonia, retroperitoneal bleed, acute kidney failure, and hx of AVR: # Cardiovascular - currently hypertensive - add hydralazine prn. Likely 2/2 fluid overload. - significant third spacing - continue dialysis - currently no anticoagulation for his AVR # Pulmonary: - continue intubation with minimal sedation - vent is breathing for patient # GI - retroperitoneal bleed in the setting of likely pancreatitis with the bleeding inflaming pancreatic tissue. Unable to fluid rescucitate. Will monitor at this time and pt denies pain. - have not ordered repeat CT abdomen - will discuss with today. She did not milk pickup driver phone today. - continue tube feeds # Renal - dialysis today. Will discuss with if she wants these measures for the future # Hematologic Anemia and thrombocytopenia - Hgb and platelets are stable. s/p 6 U rbc's likely secondary to acute blood loss vs DIC. He is not currently on anticoagulation due to his bleed but is at high risk for thrombotic events and has a valve replacement requiring coagulation. # Infectious Disease - elevated WBC - continue fluconazole and meropenem # F/E/N - fluid overloaded requiring dialysis - electrolyte replacement protocol - continue tube feeds Dispo: no change currently - pending terminal extubation on Saturday. Need to discuss with and will attempt call today. Addendum - Attending - Attending Attestation Date/Time: 03/20/20 8341 I personally evaluated the patient and discussed the management with Dr. Gallego. I agree with the History, Examination, Assessment and Plan documented above with any addition or exceptions noted below. Overall pt is relatively unchanged. Leukocytosis decreased slightly. He is still awake and still wants the ETT tube removed. Right now, family plans to come back to the hospital on Saturday. continue supportive care.
[2020-03-20 07:51] LABS: Actual Bicarbonate (HCO3a) 20.1 mEq/L (22-28); CO2 Tension 28.1 mmHg (35.0-45.0); Calcium, Ionized (arterial) 1.03 mmol/L (1.12-1.30); Carboxyhemoglobin (COHb) 0.9 gm% (0.0-3.0); Hemoglobin (Hb) 7.4 g/dL (14.0-18.0); O2 Tension (PaO2), arterial 91.6 mmHg (80.0-100.0); pH, Arterial 7.47 (7.35-7.45)
[2020-03-20 08:01] LABS: ALV-art Gradient 194.125 (0-20); Puncture Site RR
[2020-03-20] MEDS: methylPREDNISolone Sod Succ 40 MG VIAL IVP SCH ×2 (09:36→21:00)
[2020-03-20] MEDS: Calcium Carbonate 500 MG ChewTAB PO SCH ×3 (09:36→21:01)
[2020-03-20] MEDS: Aspirin 81 mg Enteric Coated Tablet PO SCH (09:36)
[2020-03-20] MEDS: Famotidine/PF 20 mg/2ml Vial SLOW IVP SCH (09:37)
[2020-03-20] MEDS: Cholecalciferol 1,000 UNITS (25 MCG) TAB PO SCH (09:37)
[2020-03-20] MEDS: Polyethylene Glycol 3350 17 GM Packet PER TUBE SCH (09:38)
[2020-03-20] MEDS: Insulin Glargine 36 UNITS in Pre-Filled Syringe 1 EACH SC SCH (09:38)
[2020-03-20] MEDS ORDERED: Heparin 10,000 UNITS/ 10 ML VIAL ONE (10:48)
[2020-03-20] MEDS: MEROPENEM 1 GM/50 ML 1 GM in Premix Bag 1 BAG IVPB SCH (11:11)
[2020-03-20] MEDS: fentaNYL Citrate/PF 2,000 MCG in Sodium Chloride 0.9% 60 ML IV SCH (11:13)
[2020-03-20] MEDS: Fluconazole In NaCl,Iso-Osm 100 MG, Admixture Fee 1 EACH in Premix Bag 1 BAG IVPB SCH (14:50)
--- NOTE | 2020-03-20 15:17 | PRG ---
DATE OF SERVICE: 03/20/2020 SUBJECTIVE: A 54-year-old gentleman, being seen for end-stage renal disease. PHYSICAL EXAMINATION: General: The patient is resting. Vital Signs: Afebrile, pulse 75, breathing at 16, blood pressure 124/53. HEENT: Head normocephalic and atraumatic. Eyes intact, no ulcers. Nose intact, no ulcers. Ears intact, no ulcers. Neck: Supple. No JVD. Chest: Symmetrical and clear. Cardiovascular: Shows S1 and S2, no rub, no murmur. Gastrointestinal: Abdomen is soft, bowel sounds positive. Extremities: Show no edema or ulcers. Skin: Shows no rash or petechiae. Musculoskeletal: Shows no joint swelling or stiffness. Genitourinary: Shows no Marie or CVA tenderness. Neurologic: Motor intact. Cranial nerves intact. LABORATORY DATA: Reviewed. ASSESSMENT AND PLAN: 1. Stage 6 chronic kidney disease. No indication for dialysis. 2. Hypertension, stable. 3. Hyperkalemia, stable. We will plan for dialysis tomorrow. Job ID: [id number]
--- NOTE | 2020-03-20 20:42 | PRG ---
DATE OF SERVICE: 03/20/2020 SUBJECTIVE: Fei Teague actually awakens and follows commands. OBJECTIVE: VITAL SIGNS: Heart rate is in the 60s, blood pressure is 112/49, FiO2 is at 45%. LUNGS: Unchanged. HEART: Unchanged. ABDOMEN: Unchanged. EXTREMITIES: Unchanged. LABORATORY DATA: White count is down to 37.5, hemoglobin 8.8, and platelets 103,000. Sodium 136, potassium 5, chloride 97, bicarb 22, BUN 114, creatinine 6.62. Blood gas shows pH 7.47, CO2 of 28, pO2 of 91 on FiO2 of 45. Decreased his PEEP today to 5 and his rate to 10. Surprisingly, we can keep him on the dry side with his renal failure. He can be actually weaned to a point where he can be extubated. We would not recommend extubation today, but if he is stable for the next day or two, it might be a possibility. Gas exchange certainly has improved. He is not having significant lung compliance issues. Critical care time was 30 min. Job ID: [id number] MTDD
[2020-03-20] MEDS: Atorvastatin Calcium 40 MG TAB PO SCH (21:01)
[2020-03-20] MEDS: HumaLOG 300 UNITS/3 ML VIAL SC PRN ×2 (21:45)
[2020-03-21] MEDS: HumaLOG 300 UNITS/3 ML VIAL SC PRN ×3 (00:33→13:33)
[2020-03-21] MEDS: Metoclopramide HCl 10 MG/2 ML VIAL IVP SCH ×3 (04:43→21:16)
[2020-03-21] MEDS: fentaNYL Citrate/PF 2,000 MCG in Sodium Chloride 0.9% 60 ML IV SCH (04:43)
[2020-03-21 05:31] LABS: Anion Gap 22 mmol/L (10-20); Calc. Creatinine Clearance 16 mL/min (70-130); Calcium 7.9 mg/dL (7.8-10.44); Carbon Dioxide 22 mmol/L (22-29); Chloride 98 mmol/L (98-107); Estimated GFR-MDRD 8; Glucose 149 mg/dL (70-105); Potassium 5.6 mmol/L (3.5-5.1); Sodium 136 mmol/L (136-145)
[2020-03-21 05:44] LABS: BUN (Urea Nitrogen) 119 mg/dL (8.4-25.7)
[2020-03-21 05:59] LABS: Hemoglobin 7.7 g/dL (14.0-18.0); Mean Corpuscular HGB CONC 31.3 g/dL (32.0-36.0); Mean Corpuscular Hemoglobin 28.1 pg (27.0-31.0); Mean Corpuscular Volume 89.9 fL (78.0-98.0); Mean Platelet Volume 10.5 fL (7.4-10.4); Platelet Count 86 thou/uL (130-400); RBC Distribution Width 19.8 % (11.5-14.5); Red Blood Cell (RBC) Count 2.73 mill/uL (4.70-6.10); White Blood Cell (WBC) Count 30.3 thou/uL (4.8-10.8)
[2020-03-21 06:00] LABS: Anisocytosis MODERATE=16-30 cells (100X) (0-5/hpf); Band 9 % (5-11); Lymphocytes 1 % (21-51); MDiff Complete? YES; Macrocytosis SLIGHT = 6-15 cells (100X) (0-5/hpf); Monocytes 5 % (0-10); Myelocyte 1 % (0-0); Neutrophil 84 % (42-75); Nucleated RBC 5 % (0); Platelet Morphology Comment Appears Decreased; Polychromasia SLIGHT = 2-3 cells (100X) (0-2/hpf)
--- NOTE | 2020-03-21 06:28 | PDOC.FM ---
- Subjective Subjective: Intubated with little sedation. Responding to yes/no questions. Dr. Randall spoke to today who will be here Saturday afternoon to discuss care. - Objective Vital Signs & Weight: Vital Signs (12 hours) Temp Pulse Resp BP 03/21/20 06:00 20 03/21/20 04:00 97.8 F 21 H 03/21/20 02:33 63 119/48 L 03/21/20 02:00 18 03/21/20 00:00 97.9 F 20 03/20/20 22:44 61 112/42 L 03/20/20 22:00 22 H 03/20/20 20:00 98.4 F 20 03/20/20 18:59 63 112/49 L Weight Admit Weight 102.603 kg Weight 112.3 kg Most Recent Monitor Data Heart Rate from ECG 68 NIBP 119/43 NIBP BP-Mean 68 Respiration from ECG 19 SpO2 100 I&O: 03/19/20 03/20/20 03/21/20 06:59 06:59 06:59 Intake Total 573 1228 891 Output Total 50 30 830 Balance 523 1198 61 Result Diagrams: 03/21/20 10:49 03/21/20 03:30 Phys Exam - Physical Examination Intubated HEENT: PERRLA, sclera anicteric Neck: no JVD, full ROM did not appreciate rales or rhonchi Cardiovascular: RRR, no significant murmur Gastrointestinal: soft, positive bowel sounds significant edema in UE, trace in LE Neurological: moves all 4 limbs 1/5 strength UE and LE Skin: no rash, normal turgor Deviation from normal: multiple blisters on arms Dx/Plan (1) COVID-19 Code(s): U07.1 - COVID-19 Status: Acute (2) Retroperitoneal hemorrhage Code(s): R58 - HEMORRHAGE, NOT ELSEWHERE CLASSIFIED Status: Acute (3) LAURA (acute kidney injury) Code(s): N17.9 - ACUTE KIDNEY FAILURE, UNSPECIFIED Status: Acute (4) DM2 (diabetes mellitus, type 2) Status: Chronic Qualifiers: Diabetes mellitus long-term insulin use: without moth exterminator use Diabetes mellitus complication status: with kidney complications Diabetes mellitus complication detail: with chronic kidney disease Chronic kidney disease stage : stage 3 (moderate) Qualified Code(s): E11.22 - Type 2 diabetes mellitus with diabetic chronic kidney disease; N18.3 - Chronic kidney disease, stage 3 ( moderate) (5) HTN (hypertension) Code(s): I10 - ESSENTIAL (PRIMARY) HYPERTENSION Status: Chronic Qualifiers: Hypertension type: essential hypertension Qualified Code(s): I10 - Essential (primary) hypertension (6) Prosthetic replacement of heart valve Code(s): Z95.2 - PRESENCE OF PROSTHETIC HEART VALVE Status: Chronic - Plan Plan: Pt is a 54 yo male here for acute respiratory failure 2/2 COVID pneumonia, retroperitoneal bleed - stable in regards to H/H, acute kidney failure, and hx of AVR: # Cardiovascular - mildly hypertensive- continue hydralazine prn for SBP > 180 in the setting of kidney failure - significant third spacing - continue dialysis - start heparin in setting of AVR, increased coaguability. Will need to monitor for bleeding. Repeat H/H tonight. Give protamine sulfate if there is evidence of bleed. # Pulmonary: - continue intubation with minimal sedation - vent is breathing for patient # GI - retroperitoneal bleed in the setting of likely pancreatitis with the bleeding inflaming pancreatic tissue. - H/H stable - continue tube feeds - consider CT abdomin/pelvis to assess bleed # Renal - Continue dialysis. Will discuss with if she wants these measures for the future # Hematologic Anemia and thrombocytopenia - Hgb and platelets are stable. s/p 6 U rbc's likely secondary to acute blood loss vs DIC. Will start heparin as above. # Infectious Disease - elevated WBC but improving - continue fluconazole and meropenem. Pt is on steroids as well. # F/E/N - fluid overloaded requiring dialysis - electrolyte replacement protocol - continue tube feeds Dispo: no change currently - pending terminal extubation on Saturday. Addendum - Attending - Attending Attestation Date/Time: 03/21/20 1611 I personally evaluated the patient and discussed the management with Dr. Gallego. I agree with the History, Examination, Assessment and Plan documented above with any addition or exceptions noted below. Patient overaall stable. Continues to require vent support for breathing due to his COVID infection. Blood counts stable. Pulm on board. Discussions with family regarding compassionate extubation in the coming days unless he makes meaningful recovery.
[2020-03-21 07:46] LABS: Actual Bicarbonate (HCO3a) 19.9 mEq/L (22-28); Base Excess (BEa) -4.7 mEq/L (-2.0 to +3.0); CO2 Tension 34.3 mmHg (35.0-45.0); Calcium, Ionized (arterial) 1.05 mmol/L (1.12-1.30); Carboxyhemoglobin (COHb) 1.1 gm% (0.0-3.0); Hemoglobin (Hb) 7.6 g/dL (14.0-18.0); Potassium - ABG Lab 5.48 mmol/L (3.70-5.30); pH, Arterial 7.38 (7.35-7.45)
[2020-03-21 07:48] LABS: ALV-art Gradient 199.975 (0-20); Puncture Site RRA
[2020-03-21] MEDS: Polyethylene Glycol 3350 17 GM Packet PER TUBE SCH (09:50)
[2020-03-21] MEDS: Famotidine/PF 20 mg/2ml Vial SLOW IVP SCH (09:50)
[2020-03-21] MEDS: methylPREDNISolone Sod Succ 40 MG VIAL IVP SCH ×2 (09:50→21:13)
[2020-03-21] MEDS: Aspirin 81 mg Enteric Coated Tablet PO SCH (09:51)
[2020-03-21] MEDS: Calcium Carbonate 500 MG ChewTAB PO SCH ×3 (09:51→21:12)
[2020-03-21] MEDS: Cholecalciferol 1,000 UNITS (25 MCG) TAB PO SCH (09:53)
[2020-03-21] MEDS: Insulin Glargine 36 UNITS in Pre-Filled Syringe 1 EACH SC SCH (09:55)
[2020-03-21] MEDS ORDERED: hydrALAZINE 10 MG TAB PO SCH (10:15)
[2020-03-21] MEDS: MEROPENEM 1 GM/50 ML 1 GM in Premix Bag 1 BAG IVPB SCH (10:30)
[2020-03-21] MEDS ORDERED: Heparin 25,000 units/D5W 500 ML IVPB SCH (10:30)
[2020-03-21 11:07] LABS: Hemoglobin 7.6 g/dL (14.0-18.0); Platelet Count 94 thou/uL (130-400)
--- NOTE | 2020-03-21 11:21 | PRG ---
DATE OF SERVICE: 03/21/2020 SUBJECTIVE: Fei Teague is a 54-year-old gentleman, who is intubated on the vent and 100 of fentanyl. OBJECTIVE: VITAL SIGNS: Pulse 79, blood pressure 180/84, sats 100%, and respirations 20. GENERAL: He was dialyzed yesterday. CHEST: No rhonchi or crackles. CARDIAC: Normal S1, S2. No gallops. ABDOMEN: No masses. LABORATORY DATA: White count 88433, H and H 24 and 7, platelet count is 86. PO2 is 78, pCO2 of 34, a rate of 10, 500 tidal volume, PEEP of 5. BUN and creatinine 119 and 8.2. ASSESSMENT: 1. Multiorgan failure, respiratory failure, jones-positive pneumonia. 2. Abdominal bleed, pancreatitis. 3. Prosthetic aortic valve, on long-term Coumadin. PLAN: 1. At this stage, we are going to restart heparin. Family is to come here on Saturday for comfort extubation presumably. 2. He is still on fluconazole and meropenem. 3. renal failure. Prognosis is guarded. TIME SPENT: One-half hour of critical care time. Job ID: [id number]
--- NOTE | 2020-03-21 12:24 | PRG ---
DATE OF SERVICE: 03/21/2020 SUBJECTIVE: The patient is on COVID isolation. OBJECTIVE: VITAL SIGNS: Temperature 97.8 pulse 71, respiratory rate 20, and blood pressure . HEENT: Intubated. LABORATORY DATA: Potassium 5.6, BUN is 119, and creatinine is 8.2. ASSESSMENT AND PLAN: 1. End-stage renal disease, on hemodialysis. Plan to have dialysis. Dialysis nurse notified. 2. Hyperkalemia. 3. Acidosis. 4. Uremia. 5. History of hypertension. 6. Acute hypoxic respiratory failure. Plan to have dialysis today as tolerated. Job ID: [id number]
[2020-03-21] MEDS: Fluconazole In NaCl,Iso-Osm 100 MG, Admixture Fee 1 EACH in Premix Bag 1 BAG IVPB SCH (13:30)
[2020-03-21 14:06] VITALS: BMI 36.6
[2020-03-21 16:37] LABS: PTT 131.2 sec (22.9-36.1)
[2020-03-21 19:26] LABS: Hemoglobin 7.5 g/dL (14.0-18.0); Mean Corpuscular Hemoglobin 28.7 pg (27.0-31.0); Mean Corpuscular Volume 89.7 fL (78.0-98.0); Platelet Count 89 thou/uL (130-400); RBC Distribution Width 19.3 % (11.5-14.5); Red Blood Cell (RBC) Count 2.63 mill/uL (4.70-6.10); White Blood Cell (WBC) Count 30.2 thou/uL (4.8-10.8)
[2020-03-21] MEDS: Atorvastatin Calcium 40 MG TAB PO SCH (21:13)
[2020-03-22] MEDS: fentaNYL Citrate/PF 2,000 MCG in Sodium Chloride 0.9% 60 ML IV SCH ×2 (01:28→20:59)
[2020-03-22 04:11] LABS: Anion Gap 26 mmol/L (10-20); Calc. Creatinine Clearance 15 mL/min (70-130); Calcium 8.1 mg/dL (7.8-10.44); Carbon Dioxide 19 mmol/L (22-29); Chloride 96 mmol/L (98-107); Estimated GFR-MDRD 7; Glucose 146 mg/dL (70-105); Potassium 5.9 mmol/L (3.5-5.1); Sodium 135 mmol/L (136-145)
[2020-03-22 04:23] LABS: BUN (Urea Nitrogen) 144 mg/dL (8.4-25.7)
[2020-03-22 04:40] LABS: PTT 157.9 sec (22.9-36.1)
[2020-03-22 04:53] LABS: Anisocytosis MODERATE=16-30 cells (100X) (0-5/hpf); Band 7 % (5-11); Hemoglobin 7.5 g/dL (14.0-18.0); Hypochromia SLIGHT = 6-15 cells (100X) (0-5/hpf); Large Platelets SLIGHT; Lymphocytes 2 % (21-51); MDiff Complete? YES; Mean Corpuscular Hemoglobin 27.1 pg (27.0-31.0); Mean Corpuscular Volume 90.2 fL (78.0-98.0); Mean Platelet Volume 11.8 fL (7.4-10.4); Monocytes 6 % (0-10); Myelocyte 1 % (0-0); Neutrophil 84 % (42-75); Nucleated RBC 5 % (0); Platelet Count 94 thou/uL (130-400); Platelet Morphology Comment Appears Decreased; Polychromasia SLIGHT = 2-3 cells (100X) (0-2/hpf); RBC Distribution Width 19.4 % (11.5-14.5); Red Blood Cell (RBC) Count 2.77 mill/uL (4.70-6.10); Target Cells SLIGHT = 2-5 cells (100X) (0-1/hpf)
[2020-03-22] MEDS: Metoclopramide HCl 10 MG/2 ML VIAL IVP SCH ×3 (06:49→20:59)
--- NOTE | 2020-03-22 06:51 | PDOC.FM ---
- Subjective Subjective: Intubated on little sedation - Objective Vital Signs & Weight: Vital Signs (12 hours) Temp Pulse Resp BP Pulse Ox 03/22/20 04:00 98.3 F 03/22/20 02:17 73 129/43 L 03/22/20 02:00 20 03/22/20 00:00 98.6 F 20 03/21/20 22:16 72 148/54 H 03/21/20 22:00 20 03/21/20 20:00 98.2 F 20 100 Weight Admit Weight 102.603 kg Weight 112.3 kg Most Recent Monitor Data Heart Rate from ECG 85 NIBP 123/103 NIBP BP-Mean 109 Respiration from ECG 21 SpO2 100 I&O: 03/20/20 03/21/20 03/22/20 06:59 06:59 06:59 Intake Total 9258 055 8481.5 Output Total 30 830 365 Balance 1198 61 797.5 Result Diagrams: 03/22/20 03:30 03/22/20 03:30 Phys Exam - Physical Examination Constitutional: NAD HEENT: PERRLA, sclera anicteric Neck: no JVD, full ROM Respiratory: no wheezing, clear to auscultation bilateral Cardiovascular: RRR, no significant murmur Gastrointestinal: soft, positive bowel sounds Musculoskeletal: pulses present diffuse pitting edema Skin: cap refill <2 seconds Deviation from normal: ecchymosis on R flank Dx/Plan (1) COVID-19 Code(s): U07.1 - COVID-19 Status: Acute (2) Retroperitoneal hemorrhage Code(s): R58 - HEMORRHAGE, NOT ELSEWHERE CLASSIFIED Status: Acute (3) LAURA (acute kidney injury) Code(s): N17.9 - ACUTE KIDNEY FAILURE, UNSPECIFIED Status: Acute (4) DM2 (diabetes mellitus, type 2) Status: Chronic Qualifiers: Diabetes mellitus terminal worker insulin use: without terminal worker use Diabetes mellitus complication status: with kidney complications Diabetes mellitus complication detail: with chronic kidney disease Chronic kidney disease stage : stage 3 (moderate) Qualified Code(s): E11.22 - Type 2 diabetes mellitus with diabetic chronic kidney disease; N18.3 - Chronic kidney disease, stage 3 ( moderate) (5) HTN (hypertension) Code(s): I10 - ESSENTIAL (PRIMARY) HYPERTENSION Status: Chronic Qualifiers: Hypertension type: essential hypertension Qualified Code(s): I10 - Essential (primary) hypertension (6) Prosthetic replacement of heart valve Code(s): Z95.2 - PRESENCE OF PROSTHETIC HEART VALVE Status: Chronic - Plan Plan: Pt is a 54 yo male here for acute respiratory failure 2/2 COVID pneumonia, retroperitoneal bleed - stable in regards to H/H, acute kidney failure, and hx of AVR: # Cardiovascular - mildly hypertensive- continue hydralazine prn for SBP > 180 in the setting of kidney failure - significant third spacing - continue dialysis - continue heparin in setting of AVR, increased coaguability. Will need to monitor for bleeding. H/H stable. Give protamine sulfate if there is evidence of bleed. # Pulmonary: - continue intubation with minimal sedation - vent is breathing for patient # GI - retroperitoneal bleed in the setting of likely pancreatitis with the bleeding inflaming pancreatic tissue. - H/H stable - continue tube feeds - consider CT abdomin/pelvis to assess bleed # Renal - Continue dialysis. Will discuss with if she wants these measures for the future # Hematologic Anemia and thrombocytopenia - Hgb and platelets are stable. s/p 6 U rbc's likely secondary to acute blood loss vs DIC. Will start heparin as above. # Infectious Disease - elevated WBC but improving - continue fluconazole and meropenem. Pt is on steroids as well. # F/E/N - fluid overloaded requiring dialysis - electrolyte replacement protocol - continue tube feeds Dispo: no change currently - pending terminal extubation on Saturday. Addendum - Attending - Attending Attestation Date/Time: 03/22/20 [id number] I personally evaluated the patient and discussed the management with Dr. Gallego. I agree with the History, Examination, Assessment and Plan documented above with any addition or exceptions noted below. Patient critical but stable. H/H stable back on heparin. Volume overloaded and needs HD today, nephro on board. Awaiting family decision about extubation and move to comfort measures. Pulm on board.
[2020-03-22 07:31] LABS: Actual Bicarbonate (HCO3a) 17.3 mEq/L (22-28); Base Excess (BEa) -6.2 mEq/L (-2.0 to +3.0); CO2 Tension 27.1 mmHg (35.0-45.0); Calcium, Ionized (arterial) 1.03 mmol/L (1.12-1.30); Carboxyhemoglobin (COHb) 0.4 gm% (0.0-3.0); O2 Tension (PaO2), arterial 72.2 mmHg (80.0-100.0); Potassium - ABG Lab 5.73 mmol/L (3.70-5.30); pH, Arterial 7.42 (7.35-7.45)
[2020-03-22 07:34] LABS: ALV-art Gradient 179.125 (0-20); Puncture Site RRA
--- NOTE | 2020-03-22 07:52 | RAD ---
EXAM: Single view of the chest HISTORY: Ventilated patient with respiratory failure COMPARISON: 03/13/2020 FINDINGS: Single view of the chest shows a normal sized cardiomediastinal silhouette. The patient is status post sternotomy. The lines and tubes are unchanged in position. There is scattered multifocal mixed infiltrates in the lungs. The bones are unremarkable IMPRESSION: Stable exam
[2020-03-22] MEDS: Famotidine/PF 20 mg/2ml Vial SLOW IVP SCH (10:00)
[2020-03-22] MEDS: Aspirin 81 mg Enteric Coated Tablet PO SCH (10:00)
[2020-03-22] MEDS: Calcium Carbonate 500 MG ChewTAB PO SCH ×3 (10:00→20:56)
[2020-03-22] MEDS: Cholecalciferol 1,000 UNITS (25 MCG) TAB PO SCH (10:00)
[2020-03-22] MEDS: Insulin Glargine 36 UNITS in Pre-Filled Syringe 1 EACH SC SCH (10:01)
[2020-03-22] MEDS: methylPREDNISolone Sod Succ 40 MG VIAL IVP SCH ×2 (10:01→20:57)
[2020-03-22] MEDS: Polyethylene Glycol 3350 17 GM Packet PER TUBE SCH (10:02)
[2020-03-22] MEDS ORDERED: Heparin 10,000 UNITS/ 10 ML VIAL ONE (10:47)
[2020-03-22] MEDS: MEROPENEM 1 GM/50 ML 1 GM in Premix Bag 1 BAG IVPB SCH (11:35)
--- NOTE | 2020-03-22 14:06 | PRG ---
DATE OF SERVICE: 03/22/2020 SUBJECTIVE: The patient is in COVID isolation. OBJECTIVE: VITAL SIGNS: Temperature 98.3, pulse 81, respiratory rate 18, blood pressure 166/40. HEENT: Intubated. LABORATORY DATA: Potassium 5.9, BUN is 144, creatinine is 9.1. ASSESSMENT: 1. End-stage renal disease. Continue on dialysis. Plan is to have dialysis today. 2. Hyperkalemia. 3. Acidosis. 4. Uremia. 5. Hypertension. 6. Acute hypoxic respiratory failure. PLAN: Plan is to have dialysis today. Job ID: [id number]
--- NOTE | 2020-03-22 14:19 | PRG ---
DATE OF SERVICE: 03/22/2020 SUBJECTIVE: Remains intubated on the vent. OBJECTIVE: VITAL SIGNS: Pulse 73, respiratory rate 23, 40% FiO2, saturations 100%, blood pressure . CHEST: Decreased breath sounds. No wheezing. CARDIAC: Normal S1 and S2. No gallops. ABDOMEN: No masses. LABORATORY DATA: White count is 35,000 slowly increasing again, slight left shift. H and H are stable. Platelet count is 94,000. APTT is 83. His pO2 is 72, pCO2 is 27, pH 7.42, 40%. PEEP of 5. His creatinine is 9, BUN 144. ASSESSMENT: 1. Respiratory failure. 2. Cornell positive pneumonia. 3. Renal failure. 4. Pancreatitis. 5. Gastrointestinal bleeding. 6. Prosthetic valve. PLAN: Continue heparin. Maintain PTT around 60 to 70. Family to make a decision tomorrow. Meantime, continue steroids, meropenem, and supportive care. Low-dose nutrition. CRITICAL CARE TIME: One-half hour of critical care time. Job ID: [id number]
[2020-03-22] MEDS: Fluconazole In NaCl,Iso-Osm 100 MG, Admixture Fee 1 EACH in Premix Bag 1 BAG IVPB SCH (15:34)
[2020-03-22 20:48] LABS: PTT 194.5 sec (22.9-36.1)
[2020-03-22] MEDS: Atorvastatin Calcium 40 MG TAB PO SCH (20:56)
[2020-03-23] MEDS: Metoclopramide HCl 10 MG/2 ML VIAL IVP SCH ×2 (05:07→14:21)
--- NOTE | 2020-03-23 06:40 | PDOC.FM ---
- Subjective Subjective: Intubated with minimal sedation - Objective Vital Signs & Weight: Vital Signs (12 hours) Temp Pulse Resp BP Pulse Ox 03/23/20 06:00 12 03/23/20 04:00 98.2 F 15 03/23/20 02:35 76 118/58 L 03/23/20 02:00 14 03/23/20 00:00 17 03/22/20 23:00 98.2 F 03/22/20 22:48 80 103/57 L 03/22/20 22:00 12 03/22/20 20:00 98.5 F 14 100 03/22/20 18:44 83 122/61 Weight Admit Weight 102.603 kg Weight 112.7 kg Most Recent Monitor Data Heart Rate from ECG 75 NIBP 111/49 NIBP BP-Mean 69 Respiration from ECG 12 SpO2 100 I&O: 03/21/20 03/22/20 03/23/20 06:59 06:59 06:59 Intake Total 891 1962.5 1330.4 Output Total 830 365 782 Balance 61 1597.5 548.4 Result Diagrams: 03/23/20 06:50 03/23/20 06:50 Phys Exam - Physical Examination Intubated HEENT: sclera anicteric Neck: no JVD, full ROM Respiratory: no wheezing, clear to auscultation bilateral Cardiovascular: RRR, no significant murmur Gastrointestinal: soft, positive bowel sounds Musculoskeletal: pulses present significant UE edema decreased strenght 1/5 Skin: no rash Deviation from normal: R sided ecchymosis Dx/Plan (1) COVID-19 Code(s): U07.1 - COVID-19 Status: Acute (2) Retroperitoneal hemorrhage Code(s): R58 - HEMORRHAGE, NOT ELSEWHERE CLASSIFIED Status: Acute (3) LAURA (acute kidney injury) Code(s): N17.9 - ACUTE KIDNEY FAILURE, UNSPECIFIED Status: Acute (4) DM2 (diabetes mellitus, type 2) Status: Chronic Qualifiers: Diabetes mellitus detention insulin use: without termination clerk use Diabetes mellitus complication status: with kidney complications Diabetes mellitus complication detail: with chronic kidney disease Chronic kidney disease stage : stage 3 (moderate) Qualified Code(s): E11.22 - Type 2 diabetes mellitus with diabetic chronic kidney disease; N18.3 - Chronic kidney disease, stage 3 ( moderate) (5) HTN (hypertension) Code(s): I10 - ESSENTIAL (PRIMARY) HYPERTENSION Status: Chronic Qualifiers: Hypertension type: essential hypertension Qualified Code(s): I10 - Essential (primary) hypertension (6) Prosthetic replacement of heart valve Code(s): Z95.2 - PRESENCE OF PROSTHETIC HEART VALVE Status: Chronic - Plan Plan: Pt is a 54 yo male here for acute respiratory failure 2/2 COVID pneumonia, retroperitoneal bleed - stable in regards to H/H, acute kidney failure, and hx of AVR: # Cardiovascular - mildly hypertensive- continue hydralazine prn for SBP > 180 in the setting of kidney failure - significant third spacing - continue dialysis - continue heparin in setting of AVR, increased coaguability. Will need to monitor for bleeding. H/H stable. Give protamine sulfate if there is evidence of bleed. # Pulmonary: - continue intubation with minimal sedation - vent is breathing for patient # GI - retroperitoneal bleed in the setting of likely pancreatitis with the bleeding inflaming pancreatic tissue. - H/H down today. Likely rebleeding. 1 U prbc with dialysis then H/H 4 hours after. - continue tube feeds - consider CT abdomin/pelvis to assess bleed # Renal - Continue dialysis. Will discuss with if she wants these measures for the future # Hematologic Anemia and thrombocytopenia - D/C heparin. Likely rebleeding with low Hgb. Transfuse 1 U. # Infectious Disease - elevated WBC but improving - continue fluconazole and meropenem. Pt is on steroids as well. # F/E/N - fluid overloaded requiring dialysis - electrolyte replacement protocol - continue tube feeds Dispo: no change currently - pending terminal extubation today but unable to reach this morning. Addendum - Attending - Attending Attestation Date/Time: 03/23/20 1200 I personally evaluated the patient and discussed the management with Dr. Gallego. I agree with the History, Examination, Assessment and Plan documented above with any addition or exceptions noted below. Patient continues to be critically ill. He had downtrending H/H, suspect continued bleeding in his retroperitoneum. His heparin drip for stroke ppx has been held. Transfusing. UOP continues to decline. Awaiting family decision regarding extubation.
[2020-03-23 07:59] LABS: Hemoglobin 5.8 g/dL (14.0-18.0); Mean Corpuscular HGB CONC 29.8 g/dL (32.0-36.0); Mean Corpuscular Hemoglobin 26.9 pg (27.0-31.0); Mean Corpuscular Volume 90.3 fL (78.0-98.0); Mean Platelet Volume 11.3 fL (7.4-10.4); Platelet Count 70 thou/uL (130-400)
[2020-03-23 08:09] LABS: Anion Gap 18 mmol/L (10-20); BUN (Urea Nitrogen) 111 mg/dL (8.4-25.7); Calc. Creatinine Clearance 19 mL/min (70-130); Calcium 7.5 mg/dL (7.8-10.44); Carbon Dioxide 24 mmol/L (22-29); Chloride 98 mmol/L (98-107); Estimated GFR-MDRD 10; Glucose 138 mg/dL (70-105); Potassium 5.3 mmol/L (3.5-5.1); Sodium 135 mmol/L (136-145)
[2020-03-23 08:40] LABS: Anisocytosis MODERATE=16-30 cells (100X) (0-5/hpf); Band 8 % (5-11); Hypochromia MODERATE=16-30 cells (100X) (0-5/hpf); Lymphocytes 2 % (21-51); MDiff Complete? YES; Metamyelocyte 1 % (0-0); Monocytes 8 % (0-10); Neutrophil 81 % (42-75); Platelet Morphology Comment Appears Decreased; Polychromasia MODERATE = 3-4 cells (100X) (0-2/hpf); Red Blood Cell (RBC) Count 2.15 mill/uL (4.70-6.10); Target Cells SLIGHT = 2-5 cells (100X) (0-1/hpf); White Blood Cell (WBC) Count 34.8 thou/uL (4.8-10.8)
[2020-03-23] MEDS: Cholecalciferol 1,000 UNITS (25 MCG) TAB PO SCH (09:28)
[2020-03-23] MEDS: Aspirin 81 mg Enteric Coated Tablet PO SCH (09:28)
[2020-03-23] MEDS: Calcium Carbonate 500 MG ChewTAB PO SCH ×2 (09:28→14:21)
[2020-03-23] MEDS: methylPREDNISolone Sod Succ 40 MG VIAL IVP SCH (09:29)
[2020-03-23] MEDS: Famotidine/PF 20 mg/2ml Vial SLOW IVP SCH (09:29)
[2020-03-23] MEDS: Polyethylene Glycol 3350 17 GM Packet PER TUBE SCH (09:32)
[2020-03-23] MEDS: Insulin Glargine 36 UNITS in Pre-Filled Syringe 1 EACH SC SCH (09:32)
--- NOTE | 2020-03-23 10:24 | PRG ---
DATE OF SERVICE: 03/23/2020 SUBJECTIVE: Fei Teague remains intubated in the vent, sedated. Unfortunately, he had a significant drop in his H and H. His heparin is on hold. OBJECTIVE: VITAL SIGNS: Blood pressure 138/48, pulse 78, saturations 100%, respiratory rate 18. CHEST: No wheezing. No crackles. CARDIAC: Normal S1, S2. No gallops. ABDOMEN: Distended. LABORATORY DATA: White count 31,000, H and H 5.8 and 19, platelet count is 70. PTT this morning is 69. Creatinine is 6.9. ASSESSMENT AND PLAN: Respiratory failure, jones positive pneumonia, renal failure, prosthetic valve, pancreatitis, and gastrointestinal bleed. Agree with holding heparin. Really need to image his abdomen if you are going to continue any meaningful treatment to see whether he is bleeding. Obviously, his heparin has to be on hold. is going to come in sometime today to discuss ongoing care. He is day #19 in the hospital. Otherwise, he is going to require a trach and a PEG. Continue supportive care. One-half hour of critical care time. Job ID: [id number]
--- NOTE | 2020-03-23 11:10 | PRG ---
DATE OF SERVICE: SUBJECTIVE: The patient is on COVID isolation. OBJECTIVE: VITAL SIGNS: Temperature 98.4, pulse 74, respiratory rate blood pressure 97/62. HEENT: Intubated. LABORATORY DATA: Potassium 5.3, BUN is 111, and creatinine is 6.9. ASSESSMENT AND PLAN: 1. End-stage renal disease. The patient is not tolerating dialysis. Try dialysis anytime dialysis is initiated even without ultrafiltration. The patient is having tachycardia and hypotension suggesting that his cardiac status is not able to tolerate dialysis and stand that primary team is having a meeting with the family today. 2. Bedside nurse updated. 3. Hyponatremia. 4. Hyperkalemia, better. 5. Azotemia with uremia. 6. Hypocalcemia. 7. Anemia. 8. Acute hypoxic respiratory failure, intubated. The patient not tolerating dialysis well. Continue discussion with the family. We will follow. Job ID: [id number]
[2020-03-23] MEDS ORDERED: Meropenem 1 GM in Sodium Chloride 0.9% 100 ML IVPB SCH (12:00)
[2020-03-23 12:41] LABS: Hemoglobin 5.3 g/dL (14.0-18.0); Platelet Count 63 thou/uL (130-400)
[2020-03-23] MEDS: Fluconazole In NaCl,Iso-Osm 100 MG, Admixture Fee 1 EACH in Premix Bag 1 BAG IVPB SCH (14:18)
[2020-03-23] MEDS ORDERED: Lorazepam 2 MG/ML VIAL SLOW IVP PRN (15:05)
[2020-03-23] MEDS ORDERED: Morphine 10 MG/ML VIAL SLOW IVP PRN (15:05)
--- NOTE | 2020-03-23 16:19 | PDOC.BPN ---
- Brief Progress Note Family, including common law - [place], came to visit with Mr. Fei Ho and ultimately decided on comfort measures, compassionate extubation. We will not continue dialysis, blood transfusions and start morphine, ativan for comfort measures. Family will stay at the hospital during extubation. They would like to follow up with [facility] if needed. I spoke with Dr. Randall who is aware of compassionate extubation. Palliative care present during meeting. Walt Gallego, DO 03/23/20
[2020-03-23 19:51] VITALS: BP 94/42; TEMP 98.2
== END 2020-03-23 21:09 | disposition hospice, inpatient (51) | DRG 870 ==
LOC: ERS 12:57 → T4-A 15:26 → T4-B 18:41 → CCU 23:22 → T4-A 03-23 17:51
PROVIDERS: ADMIT Internal Medicine; ATTEND Student in an Organized Health Care Education/Training Program
PROC: 8E0ZXY6 Isolation (ICD-10-PCS; 2020-03-04)
PROC: 5A1955Z Respiratory Ventilation, Greater than 96 Consecutive Hours (ICD-10-PCS; principal; 2020-03-05)
PROC: 30233L1 Transfusion of Nonautologous Fresh Plasma into Peripheral Vein, Percutaneous Approach (ICD-10-PCS; 2020-03-05)
PROC: 30233K1 Transfusion of Nonautologous Frozen Plasma into Peripheral Vein, Percutaneous Approach (ICD-10-PCS; 2020-03-05)
PROC: 0BH17EZ Insertion of Endotracheal Airway into Trachea, Via Natural or Artificial Opening (ICD-10-PCS; 2020-03-05)
PROC: 3E033XZ Introduction of Vasopressor into Peripheral Vein, Percutaneous Approach (ICD-10-PCS; 2020-03-05)
PROC: 02HV33Z Insertion of Infusion Device into Superior Vena Cava, Percutaneous Approach (ICD-10-PCS; 2020-03-12)
PROC: 5A1D70Z Performance of Urinary Filtration, Intermittent, Less than 6 Hours Per Day (ICD-10-PCS; 2020-03-12)
PROC: 30233N1 Transfusion of Nonautologous Red Blood Cells into Peripheral Vein, Percutaneous Approach (ICD-10-PCS; 2020-03-13)
DX: A41.89 Other specified sepsis (principal); U07.1 COVID-19; J12.89 Other viral pneumonia; J80 Acute respiratory distress syndrome; J15.9 Unspecified bacterial pneumonia; G93.41 Metabolic encephalopathy; K85.90 Acute pancreatitis without necrosis or infection, unspecified; N18.6 End stage renal disease; K66.1 Hemoperitoneum; I12.0 Hypertensive chronic kidney disease with stage 5 chronic kidney disease or end stage renal disease; N17.9 Acute kidney failure, unspecified; E87.2 Acidosis; E87.0 Hyperosmolality and hypernatremia; D62 Acute posthemorrhagic anemia; E87.1 Hypo-osmolality and hyponatremia; Z66 Do not resuscitate; Z51.5 Encounter for palliative care; E87.5 Hyperkalemia; K86.89 Other specified diseases of pancreas; E11.22 Type 2 diabetes mellitus with diabetic chronic kidney disease; M10.9 Gout, unspecified; E78.5 Hyperlipidemia, unspecified; E55.9 Vitamin D deficiency, unspecified; Z95.1 Presence of aortocoronary bypass graft; Z95.2 Presence of prosthetic heart valve; Z79.82 Long term (current) use of aspirin; Z79.02 Long term (current) use of antithrombotics/antiplatelets; Z79.899 Other long term (current) drug therapy; Z79.84 Long term (current) use of oral hypoglycemic drugs
CPT/HCPCS: 36415; 36416; 36430; 70450; 71045; 74176; 74177; 80048; 80053; 80076; 81001; 82274; 82728; 82805; 83605; 83615; 83690; 83880; 84145; 84478; 84484; 85025; 85049; 85300; 85362; 85379; 85384; 85520; 85610; 85730; 86140; 86704; 86706; 86803; 86850; 86900; 86901; 87040; 87086; 87340; 90935; 94002; 94003; 94760; 96365; 96375; C1752; G0257; J0330; J0360; J0456; J0692; J1100; J1450; J1642; J1644; J1650; J1815; J1940; J2060; J2185; J2270; J2704; J2765; J2920; J3010; J3430; J3490; J7050; J7070; P9016; P9047; P9059; Q0162; Q9967; S0028

== ENCOUNTER 2020-03-23 21:18 | Inpatient (IN) | payer OTHER ==
[2020-03-23] MEDS ORDERED: Scopolamine 1.5 mg/72 hour Patch TOP PRN (21:39)
[2020-03-23] MEDS ORDERED: Sodium Chloride 0.9% 1,000 ML IV SCH (21:39)
[2020-03-23] MEDS ORDERED: chlorproMAZINE HCl 25 MG in Sodium Chloride 0.9% 50 ML IVPB PRN (21:39)
[2020-03-23] MEDS ORDERED: Promethazine HCl 25 MG SUPP PR PRN (21:39)
[2020-03-23] MEDS ORDERED: Acetaminophen 650 MG Suppository PR PRN (21:39)
[2020-03-23] MEDS ORDERED: Haloperidol Lactate 5 MG/ML VIAL SLOW IVP PRN (21:39)
[2020-03-23] MEDS ORDERED: chlorproMAZINE HCl 50 MG/2 ML AMP IM PRN (21:39)
[2020-03-23] MEDS ORDERED: Ondansetron PF 4 MG/2 ML Vial IVP PRN (21:39)
[2020-03-23] MEDS ORDERED: Hyoscyamine Sulfate SL 0.125 mg Tablet SL PRN (21:39)
[2020-03-23] MEDS ORDERED: diphenhydrAMINE 50 MG/ML VIAL IVP PRN (21:39)
[2020-03-23] MEDS ORDERED: Lorazepam 2 MG/ML VIAL SLOW IVP PRN (21:39)
[2020-03-23 21:41] VITALS: BMI 36.8
[2020-03-24] MEDS: Morphine 4 MG/ML VIAL SLOW IVP PRN ×4 (00:09→07:55)
[2020-03-24] MEDS: Lorazepam 2 MG/ML VIAL SLOW IVP PRN ×2 (00:10→05:27)
[2020-03-24 11:47] VITALS: BP 77/48; TEMP 101.2
== END 2020-03-24 10:00 | disposition expired | DRG 951 ==
LOC: T4-A 21:18
PROVIDERS: ADMIT Family Medicine; ATTEND Family Medicine
DX: Z51.5 Encounter for palliative care (principal); A41.89 Other specified sepsis; U07.1 COVID-19; J12.89 Other viral pneumonia; D65 Disseminated intravascular coagulation [defibrination syndrome]; N17.9 Acute kidney failure, unspecified; N18.3 Chronic kidney disease, stage 3 (moderate); E11.22 Type 2 diabetes mellitus with diabetic chronic kidney disease; I12.9 Hypertensive chronic kidney disease with stage 1 through stage 4 chronic kidney disease, or unspecified chronic kidney disease; E78.5 Hyperlipidemia, unspecified; M10.9 Gout, unspecified; Z95.2 Presence of prosthetic heart valve; Z79.82 Long term (current) use of aspirin; Z79.01 Long term (current) use of anticoagulants
CPT/HCPCS: J2060; J2270